=== PATIENT | male | born 1940 | race Caucasian/White ===

== ENCOUNTER → 2017-12-14 | Outpatient (CLI) | payer BC ==
[2017-12-14 17:24] LABS: Blood Urea Nitrogen 13 mg/dL (9-20)
--- NOTE | 2017-12-15 08:13 | CT ---
EXAMINATION TYPE: CT abdomen pelvis w con DATE OF EXAM: 12/14/2017 COMPARISON: CT abdomen pelvis April 30, 2010. HISTORY: Diarrhea and irregular bowel movements for 3 days per patient. Abdominal pain not further sp ecified per order CT DLP: 1536 mGycm, Automated Exposure Control for Dose Reduction was Utilized. CONTRAST: CT scan of the abdomen and pelvis is performed with oral and with IV Contrast, patient injected with 100 mL of Isovue 300. FINDINGS: LUNG BASES: No significant abnormality is appreciated. LIVER/GB: Liver is diffusely low dense consistent with fatty infiltration. PANCREAS: No significant abnormality is seen. SPLEEN: No significant abnormality is seen. ADRENALS: No significant abnormality is seen. KIDNEYS: No significant abnormality is seen. BOWEL: The oral contrast reaches level of the hepatic flexure. There is no suspicious small or large bowel dilatation seen. Appendix is within normal limits extending medially from cecum. No suspicious wall thickening is identified in bowel. PROSTATE/SEMINAL VESICLES: Prostate gland is heterogeneous in appearance and slightly enlarged in siz e bulging on bladder base, some central zone calcifications are present. Underlying BPH is suspected, correlate clinically. LYMPH NODES: No greater than 1cm abdominal or pelvic lymph nodes are appreciated. OSSEOUS STRUCTURES: There are some prominent lateral spurring in the visualized thoracic and upper haven mbar spine. There is facet arthropathy lower lumbar levels. There is moderate joint space loss and mi ld to moderate spurring in both hips. OTHER: There is moderate mixed plaque in the aorta extending into pelvic branch vessels. IMPRESSION: No bowel obstruction. No obvious colitis. No significant new or acute finding is seen to account for patient's clinical symptoms. Diffuse fatty infiltration of liver redemonstrated.
== END | disposition home or self-care (01) ==
LOC: RADCTMAIN 16:34
PROVIDERS: ATTEND Family Medicine
DX: K76.0 Fatty (change of) liver, not elsewhere classified (principal); Z88.8 Allergy status to other drugs, medicaments and biological substances
CPT/HCPCS: 82565; 84520; 74177; 36415; Q9967

== ENCOUNTER → 2021-10-25 | Outpatient (CLI) | payer BC ==
--- NOTE | 2021-10-25 12:22 | US ---
EXAMINATION TYPE: US abdomen complete DATE OF EXAM: 10/25/2021 COMPARISON: CT 12/14/2017 CLINICAL HISTORY: 81-year-old male R74.8 ABN SERUM ENZYME LEVELS. Abdominal pain, and diarrhea noted intermittently by patient; smoker TECHNIQUE: Multiple sonographic images of the abdomen are obtained. FINDINGS: EXAM MEASUREMENTS: Liver Length: 16.1 cm Gallbladder Wall: 0.2 cm CBD: 0.6 cm Spleen: 10.4 cm Right Kidney: 11.9 x 5.7 x 4.9 cm Left Kidney: 11.7 x 4.4 x 6.4 cm Pancreas: Suboptimal visualization the pancreatic tail due to shadowing from bowel gas. Visualized p ortions show no gross abnormality. Liver: no masses seen. Overall homogeneous appearance. Gallbladder: mobile shadowing stone is seen = 2.8 x 1.9 x 1.4cm, mobile sludge also seen; areas of c omet tail artifact along the anterior wall suggests benign adenomyomatosis. No abnormal distention o r surrounding fluid. Evidence for sonographic Fitzpatrick's sign: no CBD: Borderline dilated but acceptable given the patient's age. Spleen: wnl Right Kidney: No hydronephrosis or evident masses seen Left Kidney: No hydronephrosis or evident masses seen Upper IVC: wnl Abd Aorta: prominent size measuring 2.6cm A/P longitudinal and 2.5cm A/P transverse. Irregular intima l wall changes are noted distally with ectatic appearance here for a span of 4.6 cm. IMPRESSION: 1. Cholelithiasis with a stone measuring up to 2.8 cm. No axillary findings of acute cholecystitis. 2. Borderline dilated bile duct at 6 mm. However, this is acceptable given patient's age. Clinically correlate. 3. Prominent atherosclerotic changes along the distal abdominal aorta with plaque and calcification a nd mild ectasia up to 2.6 cm.
== END | disposition home or self-care (01) ==
LOC: RADUSWWP 09:30
PROVIDERS: ATTEND Family Medicine
DX: K80.20 Calculus of gallbladder without cholecystitis without obstruction (principal); K83.8 Other specified diseases of biliary tract; I70.0 Atherosclerosis of aorta; I77.811 Abdominal aortic ectasia
CPT/HCPCS: 76700

== ENCOUNTER 2021-11-08 10:22 | Observation (INO) | payer BC, MEDICARE ==
--- NOTE | 2021-11-08 12:42 | ED ---
General Adult HPI - General Chief complaint: Abdominal Pain Stated complaint: Gall Bladder pain Time Seen by Provider: 11/08/21 12:30 Source: patient, family, RN notes reviewed, old records reviewed Mode of arrival: ambulatory Limitations: no limitations - History of Present Illness Initial comments: 81-year-old male presents to emergency room with daughter complaining of abdominal pain worse after eating peanut better last night. Patient was diagnos ed with gallstones on October 25 and referred to gastroenterology. He was given an appointment scheduled first week of November with gastroenterology. Patient states that the pain continues and is burning in nature. Family at bedside is concerned for common bile duct blockage and states was sent by Dr. Tripathi for reevaluation. Patient denies any vomiting, no fevers, did have some diarrhea. -: week(s) (2) Location: abdomen Severity scale (1-10): 2 Quality: burning Consistency: constant Improves with: none Associated Symptoms: loss of appetite, other (diarrhea) Treatments Prior to Arrival: other (immodiium) - Related Data Home Medications Medication Instructions Recorded Confirmed SILVER sulfADIAZINE Cream 1.5 mm TOPICAL BID 11/08/21 11/08/21 [Silvadene 1% Cream] Allergies Allergy/AdvReac Type Severity Reaction Status Date / Time No Known Allergies Allergy Verified 11/08/21 14:35 Review of Systems ROS Statement: Those systems with pertinent positive or pertinent negative responses have been documented in the HPI. ROS Other: All systems not noted in ROS Statement are negative. Past Medical History Past Medical History: Diabetes Mellitus History of Any Multi-Drug Resistant Organisms: None Reported Past Surgical History: No Surgical Hx Reported Past Psychological History: No Psychological Hx Reported Smoking Status: Current every day smoker Past Alcohol Use History: Occasional Past Drug Use History: None Reported General Exam Limitations: no limitations General appearance: alert, in no apparent distress Head exam: Present: atraumatic, normocephalic, normal inspection Eye exam: Present: normal appearance ENT exam: Present: normal exam, normal oropharynx, mucous membranes dry Neck exam: Present: normal inspection, full ROM. Absent: tenderness, meningismus, lymphadenopathy, thyromegaly Respiratory exam: Present: normal lung sounds bilaterally. Absent: respiratory distress, wheezes, rales, rhonchi, stridor, chest wall tenderness, accessory muscle use, decreased breath sounds Cardiovascular Exam: Present: regular rate, normal rhythm GI/Abdominal exam: Present: soft, tenderness (diffuse generalized). Absent: distended, guarding, rebound Neurological exam: Present: alert, oriented X3 ([place]) Psychiatric exam: Present: normal affect, normal mood Skin exam: Present: warm, dry, normal color. Absent: cyanosis, diaphoretic Course Vital Signs 11/08/21 11/08/21 10:40 17:00 Temperature 98.5 F Pulse Rate 73 57 L Respiratory 20 18 Rate Blood Pressure 110/67 124/65 O2 Sat by Pulse 99 97 Oximetry Medical Decision Making - Medical Decision Making 81-year-old male presents complaining of abdominal pain worse after eating peanut better last night. He was diagnosed with gallstones on October 25 and continues to have worsening abdominal pain. Patient's white blood cell count is elevated from 7.0 on 10/20/21 to 12.0 today. Ultrasound of gallbladder shows cholelithiasis with some thickening of the ga llbladder wall. There is some pericholecystic fluid present consistent for acute cholecystitis Ultrasound on October 25 shows stone measuring 2.8 x 1.9 x 1.4 cm. Patient states he is having continued pain worse with eating. Patient was given Rocephin 1 g and Flagyl IV. Morphine for pain. He will be admitted for cholecystitis with consult to GI. Case discussed with Dr. Young. - Lab Data Result diagrams: 11/08/21 13:11 11/08/21 13:11 Lab Results 11/08/21 11/08/21 11/08/21 Range/Units 13:11 13:11 13:11 WBC 12.0 H (3.8-10.6) k/uL RBC 4.51 (4.30-5.90) m/uL Hgb 14.9 (13.0-17.5) gm/dL Hct 44.2 (39.0-53.0) % MCV 98.0 (80.0-100.0) fL MCH 33.0 (25.0-35.0) pg MCHC 33.7 (31.0-37.0) g/dL RDW 12.2 (11.5-15.5) % Plt Count 209 (150-450) k/uL MPV 7.2 Neutrophils % 51 % Lymphocytes % 39 % Monocytes % 5 % Eosinophils % 2 % Basophils % 1 % Neutrophils # 6.2 (1.3-7.7) k/uL Lymphocytes # 4.7 (1.0-4.8) k/uL Monocytes # 0.6 (0-1.0) k/uL Eosinophils # 0.2 (0-0.7) k/uL Basophils # 0.1 (0-0.2) k/uL PT 10.5 (9.0-12.0) sec INR 1.0 (<1.2) APTT 26.6 (22.0-30.0) sec Sodium (137-145) mmol/L Potassium (3.5-5.1) mmol/L Chloride (98-107) mmol/L Carbon Dioxide (22-30) mmol/L Anion Gap mmol/L BUN (9-20) mg/dL Creatinine (0.66-1.25) mg/dL Est GFR (CKD-EPI)AfAm (>60 ml/min/1.73 sqM) Est GFR (CKD-EPI)NonAf (>60 ml/min/1.73 sqM) Glucose (74-99) mg/dL Plasma Lactic Acid Hector (0.7-2.0) mmol/L Calcium (8.4-10.2) mg/dL Total Bilirubin (0.2-1.3) mg/dL AST (17-59) U/L ALT (4-49) U/L Alkaline Phosphatase (38-126) U/L Total Protein (6.3-8.2) g/dL Albumin (3.5-5.0) g/dL Amylase (30-110) U/L Lipase (23-300) U/L Urine Color Light Yellow Urine Appearance Clear (Clear) Urine pH 6.0 (5.0-8.0) Ur Specific [place] 1.004 (1.001-1.035) Urine Protein Negative (Negative) Urine Glucose (UA) Negative (Negative) Urine Ketones Negative (Negative) Urine Blood Negative (Negative) Urine Nitrite Negative (Negative) Urine Bilirubin Negative (Negative) Urine Urobilinogen <2.0 (<2.0) mg/dL Ur Leukocyte Esterase Negative (Negative) Coronavirus (PCR) (Not Detectd) 11/08/21 11/08/21 11/08/21 Range/Units 13:11 13:11 14:13 WBC (3.8-10.6) k/uL RBC (4.30-5.90) m/uL Hgb (13.0-17.5) gm/dL Hct (39.0-53.0) % MCV (80.0-100.0) fL MCH (25.0-35.0) pg MCHC (31.0-37.0) g/dL RDW (11.5-15.5) % Plt Count (150-450) k/uL MPV Neutrophils % % Lymphocytes % % Monocytes % % Eosinophils % % Basophils % % Neutrophils # (1.3-7.7) k/uL Lymphocytes # (1.0-4.8) k/uL Monocytes # (0-1.0) k/uL Eosinophils # (0-0.7) k/uL Basophils # (0-0.2) k/uL PT (9.0-12.0) sec INR (<1.2) APTT (22.0-30.0) sec Sodium 138 (137-145) mmol/L Potassium 4.4 (3.5-5.1) mmol/L Chloride 107 (98-107) mmol/L Carbon Dioxide 25 (22-30) mmol/L Anion Gap 6 mmol/L BUN 8 L (9-20) mg/dL Creatinine 0.88 (0.66-1.25) mg/dL Est GFR (CKD-EPI)AfAm >90 (>60 ml/min/1.73 sqM) Est GFR (CKD-EPI)NonAf 82 (>60 ml/min/1.73 sqM) Glucose 92 (74-99) mg/dL Plasma Lactic Acid Hector 1.2 (0.7-2.0) mmol/L Calcium 9.4 (8.4-10.2) mg/dL Total Bilirubin 0.7 (0.2-1.3) mg/dL AST 20 (17-59) U/L ALT 12 (4-49) U/L Alkaline Phosphatase 65 (38-126) U/L Total Protein 7.0 (6.3-8.2) g/dL Albumin 4.2 (3.5-5.0) g/dL Amylase 225 H (30-110) U/L Lipase 112 (23-300) U/L Urine Color Urine Appearance (Clear) Urine pH (5.0-8.0) Ur Specific [place] (1.001-1.035) Urine Protein (Negative) Urine Glucose (UA) (Negative) Urine Ketones (Negative) Urine Blood (Negative) Urine Nitrite (Negative) Urine Bilirubin (Negative) Urine Urobilinogen (<2.0) mg/dL Ur Leukocyte Esterase (Negative) Coronavirus (PCR) Not Detected (Not Detectd) Disposition Clinical Impression: Cholelithiasis Disposition: ADMITTED IP TO THIS [facility] Decision Date: 11/08/21 Decision Time: 14:24
[2021-11-08 13:34] LABS: Basophils # (A) 0.1 k/uL (0-0.2); Basophils % (A) 1 %; Eosinophils # (A) 0.2 k/uL (0-0.7); Eosinophils % (A) 2 %; HCT 44.2 % (39.0-53.0); HGB 14.9 gm/dL (13.0-17.5); Lymphocytes # (A) 4.7 k/uL (1.0-4.8); Lymphocytes % (A) 39 %; MCHC 33.7 g/dL (31.0-37.0); Mean Platelet Volume 7.2; Monocytes # (A) 0.6 k/uL (0-1.0); Monocytes % (A) 5 %; Neutrophils # (A) 6.2 k/uL (1.3-7.7); Neutrophils % (A) 51 %; Platelet Count 209 k/uL (150-450); RBC 4.51 m/uL (4.30-5.90); RDW 12.2 % (11.5-15.5)
[2021-11-08 13:38] LABS: Appearance,Urine Clear (Clear); Bilirubin,Urine Negative (Negative); Blood,Urine Negative (Negative); Color,Urine Light Yellow; Glucose,Urine (UA) Negative (Negative); Ketones,Urine Negative (Negative); Leukocyte Esterase,Urine Negative (Negative); Nitrite,Urine Negative (Negative); Protein,Urine Negative (Negative); Specific Gravity,Urine 1.004 (1.001-1.035); Urobilinogen,Urine <2.0 mg/dL (<2.0)
[2021-11-08 13:44] LABS: ALT 12 U/L (4-49); AST 20 U/L (17-59); African American GFR (CKD) >90 (>60 ml/min/1.73 sqM); Albumin 4.2 g/dL (3.5-5.0); Alkaline Phosphatase 65 U/L (38-126); Amylase 225 U/L (30-110); Anion Gap 6 mmol/L; Blood Urea Nitrogen 8 mg/dL (9-20); Calcium 9.4 mg/dL (8.4-10.2); Carbon Dioxide 25 mmol/L (22-30); Chloride 107 mmol/L (98-107); Glucose 92 mg/dL (74-99); Lipase 112 U/L (23-300); Non-African American GFR(CKD) 82 (>60 ml/min/1.73 sqM); Potassium 4.4 mmol/L (3.5-5.1); Sodium 138 mmol/L (137-145); Total Bilirubin 0.7 mg/dL (0.2-1.3)
[2021-11-08 13:49] LABS: Partial Thromboplastin Time 26.6 sec (22.0-30.0); Prothrombin Time 10.5 sec (9.0-12.0)
--- NOTE | 2021-11-08 13:57 | US ---
EXAMINATION TYPE: US gallbladder DATE OF EXAM: 11/08/2021 COMPARISON: NONE CLINICAL HISTORY: cholecystitis. EXAM MEASUREMENTS: Liver Length: 13.2 cm Gallbladder Wall: 0.5 cm CBD: 0.7 cm Right Kidney: 11.5 x 4.8 x 4.7 cm Pancreas: Obscured by bowel gas Liver: wnl Gallbladder: thickened wall, there appears to be pericholecystic fluid, stones, comet tail artifact in the wall Evidence for sonographic Fitzpatrick's sign: yes CBD: dilated Right Kidney: wnl IMPRESSION: 1. Cholelithiasis with some thickening of the gallbladder wall. Some pericholecystic fluid may be pre sent. Correlate for acute cholecystitis.
[2021-11-08] MEDS ORDERED: cefTRIAXone IN SWFI 1,000 MG/10 ML SYRINGE IVP STA (14:00)
[2021-11-08] MEDS ORDERED: MORPHINE SULFATE 2 MG/ML SYRINGE IVP ONE (14:05)
[2021-11-08] MEDS ORDERED: HYDROmorphone 1 MG/ML 1 ML SYRINGE IVP PRN (14:24)
[2021-11-08] MEDS ORDERED: ACETAMINOPHEN TAB 325 MG TAB PO PRN (14:24)
[2021-11-08] MEDS ORDERED: NALOXONE 0.4 MG/ML 1 ML VIAL IV PRN (14:24)
[2021-11-08] MEDS ORDERED: IBUPROFEN 400 MG TAB PO PRN (14:24)
[2021-11-08] MEDS ORDERED: metroNIDAZOLE-NS PMX 500 MG in SALINE 1 100ML.BAG IVPB STA (14:24)
[2021-11-08] MEDS: SODIUM CHLORIDE 0.9% 1,000 ML IV SCH ×2 (17:24→23:53)
[2021-11-08 17:29] LABS: Glucose,Whole Blood 87 mg/dL (75-99)
[2021-11-08] MEDS: DEXTROSE 5%-0.9% NACL 1,000 ML IV SCH (17:58)
--- NOTE | 2021-11-08 19:01 | HP ---
HISTORY AND PHYSICAL DATE OF SERVICE: 11/08/2021 CHIEF COMPLAINT: Abdominal pain. HISTORY OF PRESENT ILLNESS: This 81-year-old gentleman with a past medical history of multiple medical problems, including diabetes mellitus, was admitted with abdominal pain. The patient was diagnosed with gallstones on October 25 and was referred to Gastroenterology. Currently the patient is having severe pain. Patient had a gallbladder ultrasound showing possible cholelithiasis and cholecystitis. Patient was admitted for further evaluation and treatment. There is no history of any fever, rigor or chills at this time. PAST MEDICAL HISTORY: History of diabetes mellitus, type 2. HOME MEDICATIONS: Silver sulfadiazine cream. ALLERGIES: NONE. FAMILY HISTORY: No history of heart disease or strokes in the family. SOCIAL HISTORY: Current smoker. REVIEW OF SYSTEMS: Fourteen-point review of systems negative except as mentioned earlier. PHYSICAL EXAMINATION: Pulse is 62, blood pressure 120/60, respiration 18. HEENT: Conjunctivae normal. NECK: No jugular venous distention. CARDIOVASCULAR: S1, S2 muffled. RESPIRATION: Breath sounds diminished at the bases. No rhonchi. No crackles. ABDOMEN: Soft. Mild diffuse tenderness in the right upper quadrant. No ascites. LEGS: No edema. No swelling. NERVOUS SYSTEM: No focal deficit. LABS: WBC 12, hemoglobin is 14.9. BUN is 8. Amylase is , lipase 112. ASSESSMENT: 1. Acute abdominal pain with acute cholecystitis and cholelithiasis. 2. Increased white count. 3. Diabetes mellitus, type 2. RECOMMENDATIONS AND DISCUSSION: In this 81-year-old gentleman who presented with multiple medical issues, we will monitor the patient closely. Empiric antibiotics. Otherwise I would also recommend surgical gastroenterology consultations. Probably cholecystectomy. IV fluids. Repeat labs. Dr. Tripathi will follow tomorrow. MMODL / IJN: [id number] / [facility]
[2021-11-08 21:23] LABS: Glucose,Whole Blood 117 mg/dL (75-99)
[2021-11-08] MEDS: INSULIN ASPART (NovoLOG) 100 UNIT/ML VIAL SQ SCH (21:33)
[2021-11-08] MEDS: HEPARIN SODIUM,PORCINE/PF 5,000 UNIT/0.5 ML SYRINGE SQ SCH (21:46)
[2021-11-09] MEDS: DEXTROSE 5%-0.9% NACL 1,000 ML IV SCH ×3 (05:53→21:46)
[2021-11-09 07:28] LABS: Glucose,Whole Blood 94 mg/dL (75-99)
[2021-11-09] MEDS: SODIUM CHLORIDE 0.9% 1,000 ML IV SCH (07:30)
[2021-11-09] MEDS: INSULIN ASPART (NovoLOG) 100 UNIT/ML VIAL SQ SCH ×4 (08:05→21:46)
[2021-11-09 08:42] LABS: Basophils # (A) 0.1 k/uL (0-0.2); Basophils % (A) 1 %; Eosinophils # (A) 0.2 k/uL (0-0.7); Eosinophils % (A) 2 %; HCT 44.1 % (39.0-53.0); HGB 14.9 gm/dL (13.0-17.5); Lymphocytes # (A) 4.3 k/uL (1.0-4.8); Lymphocytes % (A) 51 %; MCH 33.4 pg (25.0-35.0); MCHC 33.8 g/dL (31.0-37.0); MCV 98.8 fL (80.0-100.0); Mean Platelet Volume 7.2; Monocytes # (A) 0.4 k/uL (0-1.0); Monocytes % (A) 5 %; Neutrophils # (A) 3.3 k/uL (1.3-7.7); Neutrophils % (A) 39 %; Platelet Count 202 k/uL (150-450); RBC 4.47 m/uL (4.30-5.90); RDW 12.9 % (11.5-15.5); WBC 8.4 k/uL (3.8-10.6)
[2021-11-09] MEDS: HEPARIN SODIUM,PORCINE/PF 5,000 UNIT/0.5 ML SYRINGE SQ SCH ×2 (08:58→21:46)
[2021-11-09] MEDS ORDERED: cefTRIAXone 1,000 MG VIAL (IM USE) IM SCH (09:00)
[2021-11-09 10:17] LABS: ALT 11 U/L (4-49); AST 19 U/L (17-59); African American GFR (CKD) 88 (>60 ml/min/1.73 sqM); Albumin/Globulin Ratio 1.4; Alkaline Phosphatase 62 U/L (38-126); Anion Gap 5 mmol/L; Blood Urea Nitrogen 11 mg/dL (9-20); Carbon Dioxide 27 mmol/L (22-30); Chloride 107 mmol/L (98-107); Globulin 2.8 g/dL; Glucose 98 mg/dL (74-99); Non-African American GFR(CKD) 76 (>60 ml/min/1.73 sqM); Potassium 4.4 mmol/L (3.5-5.1); Sodium 139 mmol/L (137-145); Total Bilirubin 0.8 mg/dL (0.2-1.3); Total Protein 6.8 g/dL (6.3-8.2)
--- NOTE | 2021-11-09 10:58 | P.GSCN ---
History of Present Illness Consult date: 11/09/21 History of present illness: CHIEF COMPLAINT: Abdominal pain HISTORY OF PRESENT ILLNESS: This is a 81-year-old male who complains of right upper quadrant abdominal pain that radiates to the back that started yesterday night. He the abdominal pain was worse after eating peanut butter and jelly. He was recently diagnosed with gallstones on October 25 of this year and was referred to gastroenterology. There were concerns that he may have had a stone in the common bile duct. However patient's pain became more severe and he presented to the ER. Patient denies any nausea or vomiting. Denies any fever chills or sweats. He had an ultrasound completed the did show thickening of the gallbladder wall and pericholecystic fluid with concerns of acute cholecystitis. LFTs are normal. Mild elevation in amylase. Patient scheduled for laparoscopic cholecystectomy today. Patient seen and examined with Dr. womack PAST MEDICAL HISTORY: Diabetes mellitus PAST SURGICAL HISTORY: No prior abdominal surgery history MEDICATIONS: See list. ALLERGIES: See list. SOCIAL HISTORY: No illicit drug use. REVIEW OF SYSTEMS: CONSTITUTIONAL: Denies fever or chills. HEENT: Denies blurred vision, vision changes, or eye pain. Denies hemoptysis CARDIOVASCULAR: Denies chest pain or pressure. RESPIRATORY: No shortness of breath. GASTROINTESTINAL: See HPI for pertinent findings HEMATOLOGIC: Denies bleeding disorders. GENITOURINARY: Denies any blood in urine or increased urinary frequency. SKIN: Denies pruitis. Denies rash. PHYSICAL EXAM: VITAL SIGNS: Reviewed GENERAL: Well-developed in no acute distress. HEENT: No sclera icterus. Extraocular movements grossly intact. Moist buccal mucosa. Head is atraumatic, normocephalic. No nasal drainage. ABDOMEN: Soft. Nondistended. Tenderness with palpation right upper quadrant NEUROLOGIC: Alert and oriented. Cranial nerves II through XII grossly intact. LABORATORY DATA: WBC 12 down to 8.4 hemoglobin 14.9 platelets 202 Sodium 139 potassium 4.4 creatinine 0.95 Amylase 225 Lipase 112 LFTs normal IMAGING: Gallbladder ultrasound shows cholelithiasis with some thickening in the gallbladder wall. Some pericholecystic fluid may be present. Correlate for acute cholecystitis ASSESSMENT: 1. Acute cholecystitis with cholelithiasis 2. Right upper quadrant abdominal pain PLAN: -Patient scheduled for laparoscopic cholecystectomy today with Dr. womack -Keep patient nothing by mouth -Continue antibiotics -Continue IV fluids -Continue pain medication as needed Thank you for this consultation Physician Cotton Tier note has been reviewed by physician. Signing provider agrees with the documented findings, assessment, and plan of care. Past Medical History Past Medical History: Cancer, Diabetes Mellitus Additional Past Medical History / Comment(s): Bladder cancer History of Any Multi-Drug Resistant Organisms: None Reported Past Surgical History: No Surgical Hx Reported Past Anesthesia/Blood Transfusion Reactions: No Reported Reaction Past Psychological History: No Psychological Hx Reported Smoking Status: Current every day smoker Past Alcohol Use History: Occasional Past Drug Use History: None Reported Medications and Allergies Home Medications Medication Instructions Recorded Confirmed Type SILVER sulfADIAZINE Cream 1.5 mm TOPICAL BID 11/08/21 11/08/21 History [Silvadene 1% Cream] Allergies Allergy/AdvReac Type Severity Reaction Status Date / Time No Known Allergies Allergy Verified 11/08/21 14:35 Surgical - Exam Vital Signs Temp Pulse Resp BP Pulse Ox 98.5 F 73 20 110/67 99 11/08/21 10:40 11/08/21 10:40 11/08/21 10:40 11/08/21 10:40 11/08/21 10:40 Results - Labs 11/09/21 08:02 11/09/21 08:02 Abnormal Lab Results - Last 24 Hours (Table) 11/08/21 11/08/21 11/08/21 Range/Units 13:11 13:11 21:22 WBC 12.0 H (3.8-10.6) k/uL BUN 8 L (9-20) mg/dL POC Glucose (mg/dL) 117 H (75-99) mg/dL Amylase 225 H (30-110) U/L Diabetes panel 11/08/21 11/09/21 Range/Units 13:11 08:02 Sodium 138 139 (137-145) mmol/L Potassium 4.4 4.4 (3.5-5.1) mmol/L Chloride 107 107 (98-107) mmol/L Carbon Dioxide 25 27 (22-30) mmol/L BUN 8 L 11 (9-20) mg/dL Creatinine 0.88 0.95 (0.66-1.25) mg/dL Glucose 92 98 (74-99) mg/dL Calcium 9.4 9.0 (8.4-10.2) mg/dL AST 20 19 (17-59) U/L ALT 12 11 (4-49) U/L Alkaline Phosphatase 65 62 (38-126) U/L Total Protein 7.0 6.8 (6.3-8.2) g/dL Albumin 4.2 4.0 (3.5-5.0) g/dL Calcium panel 11/08/21 11/09/21 Range/Units 13:11 08:02 Calcium 9.4 9.0 (8.4-10.2) mg/dL Albumin 4.2 4.0 (3.5-5.0) g/dL Pituitary panel 11/08/21 11/09/21 Range/Units 13:11 08:02 Sodium 138 139 (137-145) mmol/L Potassium 4.4 4.4 (3.5-5.1) mmol/L Chloride 107 107 (98-107) mmol/L Carbon Dioxide 25 27 (22-30) mmol/L BUN 8 L 11 (9-20) mg/dL Creatinine 0.88 0.95 (0.66-1.25) mg/dL Glucose 92 98 (74-99) mg/dL Calcium 9.4 9.0 (8.4-10.2) mg/dL Adrenal panel 11/08/21 11/09/21 Range/Units 13:11 08:02 Sodium 138 139 (137-145) mmol/L Potassium 4.4 4.4 (3.5-5.1) mmol/L Chloride 107 107 (98-107) mmol/L Carbon Dioxide 25 27 (22-30) mmol/L BUN 8 L 11 (9-20) mg/dL Creatinine 0.88 0.95 (0.66-1.25) mg/dL Glucose 92 98 (74-99) mg/dL Calcium 9.4 9.0 (8.4-10.2) mg/dL Total Bilirubin 0.7 0.8 (0.2-1.3) mg/dL AST 20 19 (17-59) U/L ALT 12 11 (4-49) U/L Alkaline Phosphatase 65 62 (38-126) U/L Total Protein 7.0 6.8 (6.3-8.2) g/dL Albumin 4.2 4.0 (3.5-5.0) g/dL
[2021-11-09 11:50] LABS: Glucose,Whole Blood 97 mg/dL (75-99)
--- NOTE | 2021-11-09 14:12 | P.PN ---
<Marek, - Last Filed: 11/09/21 13:55> Subjective Progress Note Date: 11/09/21 Principal diagnosis: Abdominal pain Patient is a pleasant 81-year-old male that presented to the emergency room with abdominal pain. Patient has been seen in the office multiple times for elevated amylase and was diagnosed with gallstones on October 25 and was referred to general surgery. Patient was unable to wait for appointment scheduled for the first week of November due to increasing abdominal pain. Patient has a pertinent medical history of type 2 diabetes, history of bladder cancer, current smoker. Patient was found to have an elevated white count at 12.0 and amylase of 225. Ultrasound of the gallbladder found cholelithiasis with some thickening of the gallbladder wall consistent with acute cholecystitis. Patient was admitted and general surgery was consulted. IV antibiotics were started, and pain medication ordered. Hospitalist coverage 11/08/2021. 11/09/2021 Patient was seen and examined at bedside. Patient was resting comfortably in bed in no acute distress. Reports improvement of abdominal pain since last night, but naphthalene still operator to touch. Patient denies chest pain, shortness of breath, fever, chills. Patient is currently nothing by mouth, awaiting surgery, scheduled for laparoscopic cholecystectomy with Dr. Olivares. Labs were reviewed today, white count returned normal at 8.4. Will await surgical recommendations Objective - Vital Signs Vital signs: Vital Signs Temp 97.6 F 11/09/21 07:58 Pulse 52 L 11/09/21 08:32 Resp 14 11/09/21 08:32 BP 121/56 11/09/21 07:58 Pulse Ox 97 11/09/21 01:45 Intake & Output 11/08/21 11/09/21 11/09/21 18:59 06:59 18:59 Intake Total 0 700 Balance 0 700 Weight 83.915 kg 83.915 kg Intake: Intake, IV Titration 700 Amount Dextrose 5%-0.9% NaCl 1, 600 000 ml @ 75 mls/hr IV . [id number] JOSE Rx#:[id number] cefTRIAXone 1 gm In 100 Sodium Chloride 0.9% 50 ml @ 100 mls/hr IVPB Q24HR JOSE Rx#:[id number] Oral 0 Other: Voiding Method Toilet Toilet # Voids 2 1 - Constitutional General appearance: Present: cooperative, no acute distress - EENT Eyes: Present: EOMI, PERRLA ENT: Present: normal oropharynx Ears: bilateral: normal - Neck Neck: Present: normal ROM Carotids: bilateral: upstroke normal - Respiratory Respiratory: bilateral: CTA - Cardiovascular Heart rate: 50 Rhythm: regular Heart sounds: normal: S1, S2 - Peripheral pulses radial pulse Peripheral Pulses: bilateral: Normal - Gastrointestinal General gastrointestinal: Present: soft, tenderness Localized gastrointestinal: tender: diffuse - Integumentary Integumentary: Present: normal - Neurologic Neurologic: Present: CNII-XII intact - Musculoskeletal Musculoskeletal: Present: gait normal - Psychiatric Psychiatric: Present: A&O x's 3 - Allied health notes Allied health notes reviewed: nursing - Labs CBC & Chem 7: 11/09/21 08:02 11/09/21 08:02 Labs: Abnormal Lab Results - Last 24 Hours (Table) 11/08/21 Range/Units 21:22 POC Glucose (mg/dL) 117 H (75-99) mg/dL - Imaging and Cardiology US - abdomen: report reviewed Assessment and Plan Assessment: Acute abdominal pain Acute cholecystitis and cholelithiasis Type 2 diabetes mellitus Elevated amylase Leukocytosis, resolved Current smoker History of bladder cancer Plan: Patient is scheduled for cholecystectomy today Continue IV fluids and IV antibiotics Continue to control pain with as needed medications as ordered Continue to monitor blood glucose before meals at bedtime, sliding scale ordered Continue to monitor vital signs Repeat blood work in the morning Further recommendations to come based on patient's clinical course Time with Patient: Greater than 30 <Claduio Tripathi - Last Filed: 11/11/21 19:30> Subjective I have personally seen and examined the patient, reviewed the documentation and agree with the assessment and plan as written. Number of minutes spent on the visit: greater than 15. Objective - Vital Signs Vital signs: Vital Signs Temp 98.3 F 11/10/21 07:21 Pulse 48 L 11/10/21 08:00 Resp 18 11/10/21 08:00 BP 134/62 11/10/21 07:21 Pulse Ox 96 11/10/21 07:00 - Labs CBC & Chem 7: 11/10/21 07:18 11/10/21 07:18 Labs: Microbiology - Last 24 Hours (Table) 11/08/21 14:36 Blood Culture - Preliminary Blood No Growth after 72 hours 11/08/21 14:36 Blood Culture - Preliminary Blood No Growth after 72 hours
--- NOTE | 2021-11-09 15:07 | P.CONS ---
History of Present Illness - Reason for Consult Consult date: 11/09/21 acute cholecystitis Requesting physician: Kj Starks - Chief Complaint Abdominal pain - History of Present Illness Assessment a 11-year-old male who presented to the hospital with complaints of abdominal pain. Patient had been having abdominal pain associated with diarrhea for the last 2 weeks duration. He had outpatient workup that showed that he had gallstones and he was scheduled in November to see Dr. Mccabe regarding his gallstones. However pain had aggressively gotten worse and he came to the hospital for further evaluation. Patient had a ultrasound of the gallbladder cholelithiasis with some thickening of the gallbladder wall. Some pericholecystic fluid may be present. Correlate for acute cholecystitis. He denies any nausea or vomiting. States pain is still present in the epic gastric and right upper quadrant region. LFTs were within normal limits. He has been seen and evaluated by general surgery and scheduled for cholecystectomy this afternoon. Review of Systems REVIEW OF SYSTEMS: CARDIOPULMONARY: No chest pain or shortness of breath. Gastrointestinal: Right upper quadrant abdominal pain. No nausea or vomiting. No hematemesis, coffee-ground emesis. No rectal bleeding, or melena. Diarrhea 2 weeks duration. GENITOURINARY: No dysuria or hematuria. MUSCULOSKELETAL: Reports normal range of motion., Joint pain. SKIN: No rashes. No jaundice. ENDOCRINE: No chills, fevers. No excessive weight gain or loss. No polydipsia or polyuria. PSYCHIATRIC: Unremarkable. NEUROLOGY: No change in mental status. Denies dizziness, headache. ENT: Vision unremarkable. CONSTITUTIONAL: No recent weight loss. No fever, chills, night sweats. Past Medical History Past Medical History: Cancer, Diabetes Mellitus Additional Past Medical History / Comment(s): Bladder cancer History of Any Multi-Drug Resistant Organisms: None Reported Past Surgical History: No Surgical Hx Reported Past Anesthesia/Blood Transfusion Reactions: No Reported Reaction Past Psychological History: No Psychological Hx Reported Smoking Status: Current every day smoker Past Alcohol Use History: Occasional Past Drug Use History: None Reported Medications and Allergies Home Medications Medication Instructions Recorded Confirmed Type SILVER sulfADIAZINE Cream 1.5 mm TOPICAL BID 11/08/21 11/09/21 History [Silvadene 1% Cream] Allergies Allergy/AdvReac Type Severity Reaction Status Date / Time No Known Allergies Allergy Verified 11/09/21 14:56 Physical Exam Vitals: Vital Signs Temp Pulse Pulse Resp BP BP BP 11/09/21 08:32 52 L 14 11/09/21 07:58 97.6 F 52 L 14 121/56 11/09/21 07:05 97.6 F 52 L 14 121/56 11/09/21 02:00 52 L 18 11/09/21 01:45 98.0 F 45 L 17 165/64 11/08/21 19:46 18 11/08/21 19:05 98.3 F 53 L 17 109/62 11/08/21 18:05 62 18 122/68 11/08/21 17:00 57 L 18 124/65 11/08/21 10:40 98.5 F 73 20 110/67 Pulse Ox 11/09/21 08:32 11/09/21 07:58 11/09/21 07:05 11/09/21 02:00 11/09/21 01:45 97 11/08/21 19:46 11/08/21 19:05 99 11/08/21 18:05 98 11/08/21 17:00 97 11/08/21 10:40 99 Intake and Output 11/08/21 11/09/21 11/09/21 22:59 06:59 14:59 Intake Total 0 Balance 0 Intake: Oral 0 Other: Voiding Method Toilet Toilet # Voids 2 2 1 Weight 83.915 kg General appearance: The patient is alert, oriented, appears in no acute d istress. HET: Head is normocephalic and atraumatic. Conjunctiva pink. Sclera anicteric. Neck: Supple without lymphadenopathy. Trachea midline. Heart: S1 S2. Regular rate and rhythm. Lungs: Clear to auscultation. Abdomen: Soft, right upper quadrant and epigastric tenderness, nondistended with bowel sounds. No guarding or rigidity. Skin: No rashes. No jaundice. Extremities: Normal skin color and turgor. No pedal edema. Neurological: No focal deficits. Alert and oriented x3. Results CBC & Chem 7: 11/09/21 08:02 11/09/21 08:02 Labs: Abnormal Lab Results - Last 24 Hours (Table) 11/08/21 11/08/21 11/08/21 Range/Units 13:11 13:11 21:22 WBC 12.0 H (3.8-10.6) k/uL BUN 8 L (9-20) mg/dL POC Glucose (mg/dL) 117 H (75-99) mg/dL Amylase 225 H (30-110) U/L US - abdomen: report reviewed (ultrasound of the gallbladder cholelithiasis with some thickening of the gallbladder wall. Some pericholecystic fluid may be present. Correlate for acute cholecystitis) Assessment and Plan (1) RUQ abdominal pain Narrative/Plan: 81-year-old male with complaints of right upper quadrant and epigastric pain who presented to the emergency department yesterday. Patient states he's been having abdominal pain and had an outpatient ultrasound of the abdomen done showing that he had gallstones. He was scheduled to see Dr. Billingsley with general surgery in November however pain had worsened and has been associated with diarrhea for the last 2 weeks duration. Patient presented to the emergency department had an ultrasound of the gallbladder showing cholelithiasis with a possible acute cholecystitis. He is scheduled with general surgery to undergo laparoscopic, cholecystectomy today. He has no evidence of elevated LFTs, no signs of choledochal lithiasis. Current Visit: Yes Status: Acute Code(s): R10.11 - RIGHT UPPER QUADRANT PAIN SNOMED Code(s): 082626487 Plan: 1. Continue symptomatic and supportive care 2. Continue recommendations from general surgery 3. No plans for ERCP as there is no evidence for choledocholithiasis Thank you for this consultation, we will continue to follow. Dr. Raghav [place] I agree with the dictator's note, documented as a scribe by Adele Colón.
[2021-11-09] MEDS ORDERED: LACTATED RINGERS 1,000 ML IV ONE (15:29)
[2021-11-09 15:39] LABS: Glucose,Whole Blood 89 mg/dL (75-99)
[2021-11-09] MEDS ORDERED: BUPIVACAIN-EPI 0.25%-1:200,000 30 ML VIAL SQ ONE ×2 (15:39→16:32)
[2021-11-09] MEDS ORDERED: ONDANSETRON 4 MG/2 ML VIAL ONE (15:40)
[2021-11-09] MEDS ORDERED: DEXAMETHASONE SOD PHOSPHATE 4 MG/ML 1 ML VIAL IVP ONE (15:46)
[2021-11-09] MEDS ORDERED: ONDANSETRON 4 MG/2 ML VIAL IVP ONE (15:46)
[2021-11-09] MEDS ORDERED: PROPOFOL 10 MG/ML 20 ML VIAL IV ONE (16:08)
[2021-11-09] MEDS ORDERED: HEPARIN SODIUM,PORCINE 5,000 UNIT/ML 1 ML VIAL ONE (16:08)
[2021-11-09] MEDS ORDERED: MIDAZOLAM 2 MG/2 ML VIAL ONE (16:08)
[2021-11-09] MEDS ORDERED: LIDOCAINE 1% INJ 10MG/ML (20 ML MDV) ONE (16:08)
[2021-11-09] MEDS ORDERED: NEOSTIGMINE 1 MG/ML 10 ML VIAL ONE (16:08)
[2021-11-09] MEDS ORDERED: SUCCINYLCHOLINE CHLORIDE 100 MG/5 ML SYR IV ONE (16:08)
[2021-11-09] MEDS ORDERED: HYDROmorphone (PF) 1 MG/ML ONE (16:08)
[2021-11-09] MEDS ORDERED: ROCURONIUM 10 MG/ML (5 ML VIAL) IV ONE (16:08)
[2021-11-09] MEDS ORDERED: fentaNYL (PF) 50 MCG/ML 2 ML AMP ONE (16:08)
[2021-11-09] MEDS ORDERED: GLYCOPYRROLATE 0.2 MG/ML 2 ML VIAL ONE (16:08)
[2021-11-09] MEDS ORDERED: SODIUM CHLORIDE 0.9% 100 ML with ceFAZolin 2,000 MG IV ONE ×2 (16:13)
--- NOTE | 2021-11-09 16:53 | P.OP ---
Date of Procedure: 11/09/21 Preoperative Diagnosis: Cholecystitis Postoperative Diagnosis: Cholecystitis Procedure(s) Performed: Laparoscopic cholecystectomy Anesthesia: ADAMARIS Surgeon: Casey Olivares Estimated Blood Loss (ml): 5 Pathology: other (Gallbladder) Condition: stable Disposition: PACU Description of Procedure: The patient was placed on the operating table. The patient received a general endotracheal tube anesthesia. The patients abdomen was prepped and draped in the usual sterile fashion. Through an infraumbilical stab incision, the fascia of the anterior abdominal wall was grasped with a pair of Kochers and then the Veress needle was placed in the peritoneal cavity. Position of the Veress needle was confirmed with positive drop test. The abdomen was then insufflated. After adequate insufflation, the 10 mm trocar was placed in the peritoneal cavity. Following this the laparoscope was placed in the peritoneal cavity. The patient was placed in the head-up, right side up position and then a 5 mm trocar was placed in the right lateral and right subcostal position under direct visualization. A 8 mm trocar was placed in the epigastric position. The gallbladder was grasped in the fundus and infundibulum. Traction on the gallbladder was placed in the lateral and the cephalad positions. The triangle of Calot was visualized.. The cystic duct was bluntly dissected until the union of the cystic duct and common bile duct was seen. A critical view of safety was achieved. The cystic duct was then divided and sealed with the Harmonic scissors. A PDS Endoloop was then placed throughout the cystic duct stump. The cystic artery divided and sealed with the Harmonic scissors. The gallbladder was then removed from the liver bed using Harmonic scissors. The gallbladder was then extracted through the epigastric port site. Operative field was checked for any bleeding spots and Harmonic scissors was used to coagulate the liver bed. The abdomen was irrigated. The trocars were removed. The skin was closed using interrupted 3-0 Vicryl suture. Dermabond dressing were applied. The patient tolerated the procedure well.
[2021-11-09 17:34] LABS: Glucose,Whole Blood 108 mg/dL (75-99)
[2021-11-09 21:32] LABS: Glucose,Whole Blood 151 mg/dL (75-99)
[2021-11-09] MEDS: HYDROcodone/APAP 5-325MG 1 EACH TAB PO PRN (21:45)
[2021-11-10] MEDS: HYDROcodone/APAP 5-325MG 1 EACH TAB PO PRN ×2 (05:29→12:00)
[2021-11-10] MEDS: SODIUM CHLORIDE 0.9% 1,000 ML IV SCH (05:54)
[2021-11-10 07:19] LABS: Glucose,Whole Blood 103 mg/dL (75-99)
[2021-11-10 07:23] VITALS: BP 134/62; TEMP 98.3
[2021-11-10] MEDS: HEPARIN SODIUM,PORCINE/PF 5,000 UNIT/0.5 ML SYRINGE SQ SCH (07:47)
[2021-11-10] MEDS: INSULIN ASPART (NovoLOG) 100 UNIT/ML VIAL SQ SCH ×2 (07:47→12:21)
[2021-11-10 08:13] VITALS: PULSE 48; RESP 18
[2021-11-10] MEDS ORDERED: ENOXAPARIN 40 MG/0.4 ML SYRINGE SQ SCH (09:00)
[2021-11-10] MEDS: DEXTROSE 5%-0.9% NACL 1,000 ML IV SCH (09:20)
[2021-11-10 11:04] LABS: HCT 44.4 % (39.6-50.0); HGB 14.6 g/dL (13.0-17.0); MCH 31.9 pg (27.0-32.0); MCHC 32.9 g/dL (32.0-37.0); MCV 97.2 fL (80.0-97.0); Mean Platelet Volume 10.6 fL (9.5-12.2); NRBC Per 100 WBC 0 /100 WBCS (0.0-0.0); Platelet Count 237 X 10*3/uL (140-440); RBC 4.57 X 10*6/uL (4.40-5.60); RDW 12.6 % (11.5-14.5); WBC 13.77 X 10*3/uL (4.50-10.00)
[2021-11-10 11:20] LABS: African American GFR (CKD) 82.6 (60.0-200.0); Albumin 4.6 g/dL (3.8-4.9); Albumin/Globulin Ratio 1.84 (1.60-3.17); Anion Gap 13.5 mmol/L (10.00-18.00); BUN/Creat Ratio 8.5 Ratio (12.00-20.00); Blood Urea Nitrogen 8.5 mg/dL (9.0-27.0); Calcium 9.5 mg/dL (8.7-10.3); Carbon Dioxide 23.5 mmol/L (20.0-27.5); Globulin 2.5 g/dL (1.6-3.3); Non-African American GFR(CKD) 71.3 (60.0-200.0); Potassium 4.5 mmol/L (3.5-5.5); Total Bilirubin 0.6 mg/dL (0.30-1.20); Total Protein 7.1 g/dL (6.2-8.2)
--- NOTE | 2021-11-10 11:43 | P.DS ---
<Marek, - Last Filed: 11/10/21 11:36> Providers Expected date of discharge: 11/10/21 Hospital Course: Patient is a pleasant 81-year-old male that presented to the emergency room with abdominal pain. Patient has been seen in the office multiple times for elevated amylase and was diagnosed with gallstones on October 25 and was referred to general surgery. Patient was unable to wait for appointment scheduled for the first week of November due to increasing abdominal pain. Patient has a pertinent medical history of type 2 diabetes, history of bladder cancer, current smoker. Patient was found to have an elevated white count at 12.0 and amylase of 225. Ultrasound of the gallbladder found cholelithiasis with some thickening of the gallbladder wall consistent with acute cholecystitis. Patient was admitted and general surgery was consulted. IV antibiotics were started, and pain medication ordered. Hospitalist coverage 11/08/2021. 11/09/2021 Patient was seen and examined at bedside. Patient was resting comfortably in bed in no acute distress. Reports improvement of abdominal pain since last night, but still photographer to touch. Patient denies chest pain, shortness of breath, fever, chills. Patient is currently nothing by mouth, awaiting surgery, scheduled for laparoscopic cholecystectomy with Dr. Olivares. Labs were reviewed today, white count returned normal at 8.4. Will await surgical recommendations 11/10/2021 Patient was seen and examined at bedside. Patient was up walking in the halls this morning, no acute distress. Does endorse some abdominal tenderness from surgery. Patient is postop day 1 from cholecystectomy. He denies chest pain, chills, shortness of breath. Labs were reviewed, white count increased to 13.7, amylase increased at 339. Both are probably reactive findings. Patient is stable to discharge home, to follow instructions from surgical recommendations. We will repeat lab work in the office after discharge Assessment: Acute abdominal pain Acute cholecystitis and cholelithiasis Type 2 diabetes mellitus Elevated amylase Leukocytosis Current smoker History of bladder cancer Health Concerns: smoker, type 2 diabetes Pertinent Studies: Abdominal ultrasound found cholelithiasis with some thickening of gallbladder wall, some pericholecytic fluid, correlate for acute cholecystitis Procedures: 11/09/2021 patient underwent laparoscopic cholecystectomy with Dr. Olivares Patient Condition at Discharge: Stable Plan - Discharge Summary New Discharge Prescriptions: New Docusate [Colace] 100 mg PO BID #30 capsule HYDROcodone/APAP 5-325MG [[place] 5-325] 1 tab PO Q6HR PRN 3 Days #12 tab PRN Reason: Pain Levofloxacin [Levaquin] 500 mg PO DAILY 1 Days #7 tab Continue SILVER sulfADIAZINE Cream [Silvadene 1% Cream] 1.5 mm TOPICAL BID Discharge Medication List SILVER sulfADIAZINE Cream [Silvadene 1% Cream] 1.5 mm TOPICAL BID 11/08/21 [History] Docusate [Colace] 100 mg PO BID #30 capsule 11/10/21 [Rx] HYDROcodone/APAP 5-325MG [[place] 5-325] 1 tab PO Q6HR PRN 3 Days #12 tab 11/10/21 [Rx] Levofloxacin [Levaquin] 500 mg PO DAILY 1 Days #7 tab 11/10/21 [Rx] Follow up Appointment(s)/Referral(s): Claudio Tripathi MD [Primary Care Provider] - 1-2 days Casey Olivares MD [STAFF PHYSICIAN] - 11/18/21 3:30 pm Patient Instructions/Handouts: *Surgery [facility] - Laparoscopic Cholecystectomy Discharge Instructions, Laparoscopic Cholecystectomy (DC) Activity/Diet/Wound Care/Special Instructions: No driving while taking [place] No lifting over 10 pounds You may shower. No soaking or tub baths for 2 weeks Very light activity until you are reevaluated at your follow up appointment with your surgeon Discharge Disposition: HOME SELF-CARE <Claudio Tripathi - Last Filed: 11/11/21 19:29> Providers Date of admission: 11/08/21 15:31 Attending physician: Claudio Tripathi Consults: 11/08/21 14:25 Consult Physician Routine Consulting Provider: Adina [place] Consult Reason/Comments: Acute cholecystitis Do you want consulting provider notified?: Yes 11/08/21 15:59 Consult Physician Routine Consulting Provider: Casey Olivares Consult Reason/Comments: cholecystitis Do you want consulting provider notified?: Yes Primary care physician: Claudio Tripathi I have personally seen and examined the patient, reviewed the documentation and agree with the assessment and plan as written. Number of minutes spent on the visit: greater than 15.
--- NOTE | 2021-11-10 11:59 | P.PN ---
Subjective Progress Note Date: 11/10/21 CHIEF COMPLAINT: Cholecystitis HISTORY OF PRESENT ILLNESS: Patient is status post laparoscopic cholecystectomy. Patient tolerated surgery well. His pain is controlled. He has been up and ambulating. He is tolerating diet. Afebrile. WBC is 13.77 hemoglobin 14.6 platelets 237 sodium was 140 potassium 4.5 creatinine 1.0 LFTs normal amylase elevated at 339 and lipase low at 13 Patient seen and examined with Dr. womack PHYSICAL EXAM: VITAL SIGNS: Reviewed. GENERAL: Well-developed in no acute distress. HEENT: No sclera icterus. Extraocular movements grossly intact. Moist buccal mucosa. Head is atraumatic, normocephalic. ABDOMEN: Soft. Nondistended. NEUROLOGIC: Alert and oriented. Cranial nerves II through XII grossly intact. ASSESSMENT: 1. Cholecystitis status post laparoscopic cholecystectomy 2. Elevated amylase 3. Leukocytosis PLAN: -Patient is stable from surgical standpoint for discharge -He'll be discharged home with antibiotics -Recommend repeating amylase level in a few days Physician Human Service Coordinator note has been reviewed by physician. Signing provider agrees with the documented findings, assessment, and plan of care. Objective - Vital Signs Vital signs: Vital Signs Temp 98.3 F 11/10/21 07:21 Pulse 48 L 11/10/21 08:00 Resp 18 11/10/21 08:00 BP 134/62 11/10/21 07:21 Pulse Ox 96 11/10/21 07:00 Intake & Output 11/09/21 11/10/21 11/10/21 18:59 06:59 18:59 Intake Total 1350 240 Output Total 5 Balance 1345 240 Weight 83.915 kg Intake: IV 650 Intake, IV Titration 700 Amount Dextrose 5%-0.9% NaCl 1, 600 000 ml @ 75 mls/hr IV . [id number] [facility] Rx#:[id number] cefTRIAXone 1 gm In 100 Sodium Chloride 0.9% 50 ml @ 100 mls/hr IVPB Q24HR [facility] Rx#:[id number] Oral 240 Output: Estimated Blood Loss 5 Other: Voiding Method Toilet Toilet Toilet # Voids 1 3 - Labs CBC & Chem 7: 11/10/21 07:18 11/10/21 07:18 Labs: Abnormal Lab Results - Last 24 Hours (Table) 11/09/21 11/09/21 11/10/21 Range/Units 17:27 21:30 07:17 WBC (4.50-10.00) X 10*3/uL MCV (80.0-97.0) fL BUN (9.0-27.0) mg/dL BUN/Creatinine Ratio (12.00-20.00) Ratio POC Glucose (mg/dL) 108 H 151 H 103 H (75-99) mg/dL Amylase (23-121) U/L Lipase (14-60) U/L 11/10/21 11/10/21 Range/Units 07:18 07:18 WBC 13.77 H (4.50-10.00) X 10*3/uL MCV 97.2 H (80.0-97.0) fL BUN 8.5 L (9.0-27.0) mg/dL BUN/Creatinine Ratio 8.50 L (12.00-20.00) Ratio POC Glucose (mg/dL) (75-99) mg/dL Amylase 339 H* (23-121) U/L Lipase 13 L (14-60) U/L Microbiology - Last 24 Hours (Table) 11/08/21 14:36 Blood Culture - Preliminary Blood No Growth after 24 hours 11/08/21 14:36 Blood Culture - Preliminary Blood No Growth after 24 hours
[2021-11-10 12:00] LABS: Glucose,Whole Blood 129 mg/dL (75-99)
[2021-11-10] MEDS ORDERED: CALCIUM CARBONATE 500 MG CHEWABLE PO PRN (12:03)
[2021-11-10] MEDS ORDERED: PANTOPRAZOLE 40 MG TABLET PO SCH (12:15)
[2021-11-10 13:26] LABS: Basophils # (A) 0.04 X 10*3/uL (0.00-0.10); Basophils % (A) 0.3 %; Eosinophils # (A) 0.01 X 10*3/uL (0.04-0.35); Eosinophils % (A) 0.1 %; Immature Grans, Automated 0.2 %; Lymphocytes % (A) 38.5 %; Monocytes # (A) 0.75 X 10*3/uL (0.20-1.00); Monocytes % (A) 5.4 %; Neutrophils # (A) 7.64 X 10*3/uL (1.80-7.70); Neutrophils % (A) 55.5 %; RBC Morphology NORMAL
--- NOTE | 2021-11-10 15:46 | P.PN ---
Subjective Progress Note Date: 11/10/21 Principal diagnosis: Abdominal pain, cholecystitis Was seen today as a follow-up for consultation for cholecystitis. He is status post cholecystectomy yesterday with general surgery. Today he states the pain he was having has improved however he does have some surgical pain. He denies passing any flatus or bowel movement. He is tolerating his diet. He's been afebrile. LFTs are normal. Mild elevation of his amylase, lipase is normal. Objective - Vital Signs Vital signs: Vital Signs Temp 98.3 F 11/10/21 07:21 Pulse 48 L 11/10/21 08:00 Resp 18 11/10/21 08:00 BP 134/62 11/10/21 07:21 Pulse Ox 96 11/10/21 07:00 Intake & Output 11/09/21 11/10/21 11/10/21 18:59 06:59 18:59 Intake Total 1350 240 Output Total 5 Balance 1345 240 Weight 83.915 kg Intake: IV 650 Intake, IV Titration 700 Amount Dextrose 5%-0.9% NaCl 1, 600 000 ml @ 75 mls/hr IV . [id number] [facility] Rx#:[id number] cefTRIAXone 1 gm In 100 Sodium Chloride 0.9% 50 ml @ 100 mls/hr IVPB Q24HR [facility] Rx#:[id number] Oral 240 Output: Estimated Blood Loss 5 Other: Voiding Method Toilet Toilet Toilet # Voids 1 3 - Exam General appearance: The patient is alert, oriented, appears in no acute distress. HET: Head is normocephalic and atraumatic. Conjunctiva pink. Sclera anicteric. Neck: Supple without lymphadenopathy. Abdomen: Soft, mild tenderness around surgical sites, surgical sites well approximated, nondistended with bowel hypoactive sounds. No guarding or rigidity. Extremities: Normal skin color and turgor. No pedal edema Skin: No rashes, no jaundice Neurological: No focal deficits. Alert and oriented x 3. - Labs CBC & Chem 7: 11/10/21 07:18 11/10/21 07:18 Labs: Abnormal Lab Results - Last 24 Hours (Table) 11/09/21 11/09/21 11/10/21 Range/Units 17:27 21:30 07:17 POC Glucose (mg/dL) 108 H 151 H 103 H (75-99) mg/dL Microbiology - Last 24 Hours (Table) 11/08/21 14:36 Blood Culture - Preliminary Blood No Growth after 24 hours 11/08/21 14:36 Blood Culture - Preliminary Blood No Growth after 24 hours Assessment and Plan (1) RUQ abdominal pain Narrative/Plan: 81-year-old male with complaints of right upper quadrant and epigastric pain who presented to the emergency department yesterday. Patient states he's been having abdominal pain and had an outpatient ultrasound of the abdomen done showing that he had gallstones. He was scheduled to see Dr. Billingsley with general surgery in November however pain had worsened and has been associated with diarrhea for the last 2 weeks duration. Patient presented to the emergency department had an ultrasound of the gallbladder showing cholelithiasis with a possible acute cholecystitis. He is scheduled with general surgery to undergo laparoscopic, cholecystectomy today. He has no evidence of elevated LFTs, no si gns of choledochal lithiasis. Status post laparoscopic cholecystectomy. Plan is for discharge home today. Status: Acute Code(s): R10.11 - RIGHT UPPER QUADRANT PAIN SNOMED Code(s): 834469593 Plan: 1. Continue symptomatic and supportive care 2. Continue recommendations from general surgery 3. No plans for ERCP as there is no evidence for choledocholithiasis 4. Patient is cleared from gastroenterology for discharge Thank you for this consultation, we will continue to follow. Dr. Raghav [place] I agree with the dictator's note, documented as a scribe by Adele Colón.
== END 2021-11-10 13:46 | disposition home or self-care (01) ==
LOC: EC 10:22 → 6NMEDSUR 15:31
PROVIDERS: ADMIT Family Medicine; ATTEND Family Medicine
DX: K80.12 Calculus of gallbladder with acute and chronic cholecystitis without obstruction (principal); E11.9 Type 2 diabetes mellitus without complications; F17.200 Nicotine dependence, unspecified, uncomplicated; Z20.822 Contact with and (suspected) exposure to COVID-19; Z87.442 Personal history of urinary calculi; Z85.51 Personal history of malignant neoplasm of bladder; Z83.3 Family history of diabetes mellitus
CPT/HCPCS: 47562; 99285; 96366 ×2; 96367 ×2; 96372 ×2; 96376; 96365; 96375; 36415; 88304; 80053 ×3; 82150 ×2; 83605; 83690 ×2; 85025 ×3; 85610; 85730; 81003; 87040; 87635; 76705; G0378 ×3; J2250; J1644 ×4; J1100; J2710; J2405; J0690; J2001; J0696 ×3; J3010; J2270; J1170; J0330; J2704

== ENCOUNTER → 2023-09-01 | Outpatient (CLI) | payer BC ==
--- NOTE | 2023-09-01 12:56 | XR ---
EXAMINATION TYPE: XR abdomen acute w cxr DATE OF EXAM: 09/01/2023 COMPARISON: NONE HISTORY: 83-year-old male R10.9 UNSPECIFIED ABDOMINAL PAIN FINDINGS: Heart normal size. Pulmonary vasculature within normal limits. Mild patchy density at the periphery of the right mid to lower lung. No pleural effusion. No evidence for free intraperitoneal air. No dilated small bowel or air-fluid levels. A vague 5 mm density right paramedian mid abdomen may represent a small renal calculus or vascular ca lcification. No dilated small bowel air-fluid levels. Mild stool burden. Vascular calcifications in the pelvis. Mild degenerative change of the hips. IMPRESSION: 1. Patchy density at the periphery of the right to lower lung. Correlate for developing pneumonia. 2. No evidence for free air or bowel obstruction. Mild stool wording. 3. A 5 mm density right paramedian mid abdomen could represent vascular calcification, external artif act, or a right renal calculus.
== END | disposition home or self-care (01) ==
LOC: RADXRMAIN 12:22
PROVIDERS: ATTEND Family Medicine
DX: J98.4 Other disorders of lung (principal); R10.9 Unspecified abdominal pain
CPT/HCPCS: 74022

== ENCOUNTER 2023-09-24 21:09 | Inpatient (IN) | payer BC, MEDICARE ==
[2023-09-24] MEDS ORDERED: SODIUM CHLORIDE 0.9% 1,000 ML IV STA (21:26)
--- NOTE | 2023-09-24 21:59 | ED ---
Abdominal Pain HPI - General Chief Complaint: Abdominal Pain Stated Complaint: Abdominal Pain Time Seen by Provider: 09/24/23 21:20 Source: patient, RN notes reviewed, old records reviewed Mode of arrival: ambulatory Limitations: no limitations - History of Present Illness Initial Comments: This is a 83-year-old male DF for evaluation severe abdominal pain right upper quadrant abdominal pain right-sided abdominal pain, patient received here for pneumonia with IV antibiotics, pain has persisted. Patient's pain tonight and into today has been the worst pain that he has had. Patient's pain is unbearable at this point. Patient states the pain again is severe without nausea no vomiting. Patient does have history of bladder cancer, no fevers shortness of breath does have cough MD Complaint: abdominal pain -: days(s) Location: diffuse, epigastric Radiation: epigastric Migration to: epigastric, suprapubic Severity: moderate Severity scale (1-10): 6 Quality: stabbing Consistency: intermittent Improves With: nothing Worsens With: nothing Context: sick contacts Associated Symptoms: nausea - Related Data Home Medications Medication Instructions Recorded Confirmed Ibuprofen 800 mg PO TID PRN 09/25/23 09/25/23 Omeprazole [PriLOSEC] 20 mg PO DAILY 09/25/23 09/25/23 diazePAM [Valium] 5 mg PO TID PRN 09/25/23 09/25/23 Previous Rx's Medication Instructions Recorded Amoxic-Pot Clav 500-125 mg 1 tab PO Q12HR 4 Days #8 tab 10/02/23 [Augmentin 500-125 mg] Docusate [Colace] 100 mg PO BID #60 cap 10/02/23 Magnesium Hydroxide [Milk of 2,400 mg PO BID PRN ml 10/02/23 Magnesia] Pantoprazole Sodium [Protonix] 40 mg PO DAILY #30 tab 10/02/23 polyethylene glycoL 3350 [Miralax] 17 gm PO DAILY #527 gm 10/02/23 Allergies Allergy/AdvReac Type Severity Reaction Status Date / Time No Known Allergies Allergy Verified 11/09/21 14:56 Review of Systems ROS Statement: Those systems with pertinent positive or pertinent negative responses have been documented in the HPI. ROS Other: All systems not noted in ROS Statement are negative. Past Medical History Past Medical History: Cancer, Diabetes Mellitus Additional Past Medical History / Comment(s): Bladder cancer History of Any Multi-Drug Resistant Organisms: None Reported Past Surgical History: No Surgical Hx Reported Past Anesthesia/Blood Transfusion Reactions: No Reported Reaction Past Psychological History: No Psychological Hx Reported Smoking Status: Current every day smoker Past Alcohol Use History: Occasional Past Drug Use History: None Reported - Past Family History Father Additional Family Medical History / Comment(s): Colon cancer. General Exam Limitations: no limitations General appearance: alert, in no apparent distress, anxious Head exam: Present: atraumatic, normocephalic, normal inspection Eye exam: Present: normal appearance, PERRL, EOMI. Absent: scleral icterus, conjunctival injection, periorbital swelling ENT exam: Present: normal exam, mucous membranes moist Neck exam: Present: normal inspection. Absent: tenderness, meningismus, lymphadenopathy Respiratory exam: Present: normal lung sounds bilaterally. Absent: respiratory distress, wheezes, rales, rhonchi, stridor Cardiovascular Exam: Present: regular rate, normal rhythm, normal heart sounds. Absent: systolic murmur, diastolic murmur, rubs, gallop, clicks GI/Abdominal exam: Present: soft, normal bowel sounds. Absent: distended, tenderness, guarding, rebound, rigid Extremities exam: Present: normal inspection, full ROM, normal capillary refill. Absent: tenderness, pedal edema, joint swelling, calf tenderness Back exam: Present: normal inspection Neurological exam: Present: alert, oriented X3, CN II-XII intact Psychiatric exam: Present: normal affect, normal mood Skin exam: Present: warm, dry, intact, normal color. Absent: rash Course Vital Signs 09/24/23 09/25/23 21:10 01:07 Temperature 98.5 F 98.6 F Pulse Rate 79 67 Respiratory 20 18 Rate Blood Pressure 160/74 138/71 O2 Sat by Pulse 95 93 L Oximetry - Reevaluation(s) Reevaluation #1: 09/25/23 00:46 Records reviewed Reevaluation #2: 09/25/23 00:46 Patient is difficult to control abdominal pain here in the ER Reevaluation #3: 09/25/23 00:48 Patient informed of results and questions answered Reevaluation #4: 09/24/23 22:25 Was pt. sent in by a medical professional or institution (, PA, GUN NUMBERER, urgent care, hospital, or skilled nursing...) When possible be specific @ -no Did you speak to anyone other than the patient for history (EMS, parent, family, police, friend...)? What history was obtained from this source @ -no Did you review nursing and triage notes (agree or disagree)? Why? @ -agree Are old charts reviewed (outside hosp., previous admission, EMS record, old EKG, old radiological studies, urgent care reports/EKG's, skilled nursing records)? Report findings @ -yes Differential Diagnosis (chest pain, altered mental status, abdominal pain women, abdominal pain men, vaginal bleeding, weakness, fever, dyspnea, syncope, headache, dizziness, GI bleed, back pain, seizure, CVA, palpatations, mental health, musculoskeletal)? @ -prior EKG interpreted by me (3pts min.). @ -yes X-rays interpreted by me (1pt min.). @ -yes positive for pneumonia CT interpreted by me (1pt min.). @ -yes positive for pneumonia U/S interpreted by me (1pt. min.). @ -no What testing was considered but not performed or refused? (CT, X-rays, U/S, labs)? Why? @ -none What meds were considered but not given or refused? Why? @ -none Did you discuss the management of the patient with other professionals (professionals i.e. , PA, GUN NUMBERER, lab, RT, psych nurse, social services coordinator, machinist automotive, teacher, surveillance sensor officer, window caser)? Give summary @ -no Was smoking cessation discussed for >3mins.? @ -no Was critical care preformed (if so, how long)? @ -no Were there social determinants of health that impacted care today? How? (Homelessness, low income, unemployed, alcoholism, drug addiction, transportation, low edu. Level, literacy, decrease access to med. care, group home, rehab)? @ -none Was there de-escalation of care discussed even if they declined (Discuss DNR or withdrawal of care, Hospice)? DNR status @ -no What co-morbidities impacted this encounter? (DM, HTN, Smoking, COPD, CAD, Cancer, CVA, ARF, Chemo, Hep., AIDS, mental health diagnosis, sleep apnea, morbid obesity)? @ -none Was patient admitted / discharged? Hospital course, mention meds given and route, prescriptions, significant lab abnormalities, going to OR and other pertinent info. @ - 83 male to the ER for evaluation patient will be admitted for severe cancer pain, pain control and treatment of pneumonia Admitted Undiagnosed new problem with uncertain prognosis? @ -no Drug Therapy requiring intensive monitoring for toxicity (Heparin, Nitro, Insulin, Cardizem)? @ -no Were any procedures done? @ -no Diagnosis/symptom? @ -Cancer related pain Acute, or Chronic, or Acute on Chronic? @ -Acute Uncomplicated (without systemic symptoms) or Complicated (systemic symptoms)? @ -Complicated Side effects of treatment? @ -no Exacerbation, Progression, or Severe Exacerbation? @ -exacerbation Poses a threat to life or bodily function? How? (Chest pain, [place], [place], pneumonia, PE, COPD, DKA, ARF, appy, cholecystitis, CVA, Diverticulitis, Homicidal, Suicidal, threat to staff... and all critical care pts) @ -yes with extreme of age and underlying comorbidities Reevaluation #5: 09/25/23 00:48 Differential Abdominal Pain men: Appendicitis, Cholecystitis, diverticulosis, ischemic bowel, pancreatitis, hepatitis, UTI, gastroenteritis, AAA, incarcerated hernia, bowel obstruction, constipation, inflammatory bowel, hepatitis, peptic ulcer disease, splenic infarction, perforated viscus, vulvitis, ovarian torsion, PID, kidney stone, placenta abruption, this is not meant to be an all-inclusive list - Consultations Consultation #1: spoke w [facility] were agrees to admit this patient Medical Decision Making - Medical Decision Making 83 male to the ER for evaluation patient will be admitted for severe cancer pain, pain control and treatment of pneumonia - Lab Data Result diagrams: 10/01/23 06:40 10/01/23 06:40 Lab Results 09/24/23 09/24/23 09/24/23 Range/Units 21:44 21:44 21:44 WBC 11.0 H (3.8-10.6) k/uL RBC 4.68 (4.30-5.90) m/uL Hgb 15.5 (13.0-17.5) gm/dL Hct 45.6 (39.0-53.0) % MCV 97.4 (80.0-100.0) fL MCH 33.1 (25.0-35.0) pg MCHC 33.9 (31.0-37.0) g/dL RDW 12.4 (11.5-15.5) % Plt Count 209 (150-450) k/uL MPV 7.5 Neutrophils % 40 % Lymphocytes % 51 % Monocytes % 4 % Eosinophils % 2 % Basophils % 1 % Neutrophils # 4.4 (1.3-7.7) k/uL Lymphocytes # 5.6 H (1.0-4.8) k/uL Monocytes # 0.5 (0-1.0) k/uL Eosinophils # 0.2 (0-0.7) k/uL Basophils # 0.1 (0-0.2) k/uL Sodium 138 (137-145) mmol/L Potassium 4.2 (3.5-5.1) mmol/L Chloride 102 (98-107) mmol/L Carbon Dioxide 27 (22-30) mmol/L Anion Gap 9 mmol/L BUN 17 (9-20) mg/dL Creatinine 0.97 (0.66-1.25) mg/dL Est GFR (CKD-EPI)AfAm 85 (>60 ml/min/1.73 sqM) Est GFR (CKD-EPI)NonAf 74 (>60 ml/min/1.73 sqM) Glucose 152 H (74-99) mg/dL Plasma Lactic Acid Hector (0.7-2.0) mmol/L Calcium 9.5 (8.4-10.2) mg/dL Total Bilirubin 1.1 (0.2-1.3) mg/dL AST 125 H (17-59) U/L ALT 67 H (4-49) U/L Alkaline Phosphatase 208 H (38-126) U/L Total Protein 7.4 (6.3-8.2) g/dL Albumin 4.2 (3.5-5.0) g/dL Amylase 180 H (30-110) U/L Lipase 611 H (23-300) U/L Urine Color Colorless Urine Appearance Clear (Clear) Urine pH 6.5 (5.0-8.0) Ur Specific [place] 1.007 (1.001-1.035) Urine Protein Negative (Negative) Urine Glucose (UA) Negative (Negative) Urine Ketones Negative (Negative) Urine Blood Negative (Negative) Urine Nitrite Negative (Negative) Urine Bilirubin Negative (Negative) Urine Urobilinogen <2.0 (<2.0) mg/dL Ur Leukocyte Esterase Negative (Negative) 09/24/23 Range/Units 23:40 WBC (3.8-10.6) k/uL RBC (4.30-5.90) m/uL Hgb (13.0-17.5) gm/dL Hct (39.0-53.0) % MCV (80.0-100.0) fL MCH (25.0-35.0) pg MCHC (31.0-37.0) g/dL RDW (11.5-15.5) % Plt Count (150-450) k/uL MPV Neutrophils % % Lymphocytes % % Monocytes % % Eosinophils % % Basophils % % Neutrophils # (1.3-7.7) k/uL Lymphocytes # (1.0-4.8) k/uL Monocytes # (0-1.0) k/uL Eosinophils # (0-0.7) k/uL Basophils # (0-0.2) k/uL Sodium (137-145) mmol/L Potassium (3.5-5.1) mmol/L Chloride (98-107) mmol/L Carbon Dioxide (22-30) mmol/L Anion Gap mmol/L BUN (9-20) mg/dL Creatinine (0.66-1.25) mg/dL Est GFR (CKD-EPI)AfAm (>60 ml/min/1.73 sqM) Est GFR (CKD-EPI)NonAf (>60 ml/min/1.73 sqM) Glucose (74-99) mg/dL Plasma Lactic Acid Hector 1.2 (0.7-2.0) mmol/L Calcium (8.4-10.2) mg/dL Total Bilirubin (0.2-1.3) mg/dL AST (17-59) U/L ALT (4-49) U/L Alkaline Phosphatase (38-126) U/L Total Protein (6.3-8.2) g/dL Albumin (3.5-5.0) g/dL Amylase (30-110) U/L Lipase (23-300) U/L Urine Color Urine Appearance (Clear) Urine pH (5.0-8.0) Ur Specific [place] (1.001-1.035) Urine Protein (Negative) Urine Glucose (UA) (Negative) Urine Ketones (Negative) Urine Blood (Negative) Urine Nitrite (Negative) Urine Bilirubin (Negative) Urine Urobilinogen (<2.0) mg/dL Ur Leukocyte Esterase (Negative) - EKG Data -: EKG Interpreted by Me - Radiology Data Radiology results: report reviewed (Have the abdomen and pelvis is positive for pneumonia and what appears to be liver metastasis cancer), image reviewed Disposition Clinical Impression: RUQ abdominal pain, Abdominal pain, Right lower lobe pneumonia, Cancer associated pain Disposition: ADMITTED IP TO THIS [facility] Condition: Serious Is patient prescribed a controlled substance at d/c from ED?: No Time of Disposition: 00:30
[2023-09-24 22:10] LABS: Basophils # (A) 0.1 k/uL (0-0.2); Basophils % (A) 1 %; Eosinophils # (A) 0.2 k/uL (0-0.7); Eosinophils % (A) 2 %; HCT 45.6 % (39.0-53.0); HGB 15.5 gm/dL (13.0-17.5); Lymphocytes # (A) 5.6 k/uL (1.0-4.8); Lymphocytes % (A) 51 %; MCH 33.1 pg (25.0-35.0); MCHC 33.9 g/dL (31.0-37.0); MCV 97.4 fL (80.0-100.0); Mean Platelet Volume 7.5; Monocytes # (A) 0.5 k/uL (0-1.0); Monocytes % (A) 4 %; Neutrophils # (A) 4.4 k/uL (1.3-7.7); Neutrophils % (A) 40 %; Platelet Count 209 k/uL (150-450); RBC 4.68 m/uL (4.30-5.90); RDW 12.4 % (11.5-15.5)
[2023-09-24 22:11] LABS: Appearance,Urine Clear (Clear); Bilirubin,Urine Negative (Negative); Blood,Urine Negative (Negative); Color,Urine Colorless; Glucose,Urine (UA) Negative (Negative); Ketones,Urine Negative (Negative); Leukocyte Esterase,Urine Negative (Negative); Nitrite,Urine Negative (Negative); PH, Urine 6.5 (5.0-8.0); Protein,Urine Negative (Negative); Specific Gravity,Urine 1.007 (1.001-1.035); Urobilinogen,Urine <2.0 mg/dL (<2.0)
[2023-09-24 22:22] LABS: ALT 67 U/L (4-49); AST 125 U/L (17-59); African American GFR (CKD) 85 (>60 ml/min/1.73 sqM); Albumin 4.2 g/dL (3.5-5.0); Alkaline Phosphatase 208 U/L (38-126); Amylase 180 U/L (30-110); Anion Gap 9 mmol/L; Blood Urea Nitrogen 17 mg/dL (9-20); Calcium 9.5 mg/dL (8.4-10.2); Carbon Dioxide 27 mmol/L (22-30); Chloride 102 mmol/L (98-107); Glucose 152 mg/dL (74-99); Lipase 611 U/L (23-300); Non-African American GFR(CKD) 74 (>60 ml/min/1.73 sqM); Potassium 4.2 mmol/L (3.5-5.1); Sodium 138 mmol/L (137-145); Total Bilirubin 1.1 mg/dL (0.2-1.3); Total Protein 7.4 g/dL (6.3-8.2)
--- NOTE | 2023-09-24 23:18 | XR ---
EXAM: XR Chest, 2 Views CLINICAL HISTORY: ITS.REASON XR Reason: HERB TECHNIQUE: Frontal and lateral views of the chest. COMPARISON: No relevant prior studies available. FINDINGS: Lungs: Airspace consolidation in the RIGHT lower lobe, concerning for pneumonia. Follow-up studies are recommended. Pleural space: Unremarkable. No pneumothorax. Heart: Unremarkable. No cardiomegaly. Mediastinum: Unremarkable. Normal mediastinal contour. Bones/joints: Unremarkable. No acute fracture. IMPRESSION: Airspace consolidation in the RIGHT lower lobe, concerning for pneumonia. Follow-up studies are recommended.
[2023-09-24] MEDS ORDERED: MORPHINE SULFATE 4 MG/ML SYRINGE IVP STA (23:20)
[2023-09-24] MEDS ORDERED: ONDANSETRON 4 MG/2 ML VIAL IVP STA (23:20)
--- NOTE | 2023-09-24 23:20 | CT ---
EXAM: CT Abdomen and Pelvis With Intravenous Contrast CLINICAL HISTORY: ITS.REASON CT Reason: abdominal pain TECHNIQUE: Axial computed tomography images of the abdomen and pelvis with intravenous contrast. CTDI is 22 mGy and DLP is 1062.6 mGy-cm. This CT exam was performed using one or more of the following dose reduction techniques: automated exposure control, adjustment of the mA and/or kV according to patient size, and/or use of iterative reconstruction technique. COMPARISON: No relevant prior studies available. FINDINGS: Lung bases: Airspace consolidation in the RIGHT lower lobe, consistent with pneumonia. ABDOMEN: Liver: Diffuse hepatic metastases, correlate for primary malignancy. Gallbladder and bile ducts: Cholecystectomy. No ductal dilation. Pancreas: Unremarkable. No mass. No ductal dilation. Spleen: Unremarkable. No splenomegaly. Adrenals: Unremarkable. No mass. Kidneys and ureters: Unremarkable. No solid mass. No hydronephrosis. Stomach and bowel: Diverticulosis, without acute diverticulitis. No small bowel obstruction. No free intraperitoneal air. PELVIS: Appendix: No findings to suggest acute appendicitis. Bladder: Mild wall thickening of the urinary bladder, if there is concern for UTI, urinalysis recommended. Reproductive: Unremarkable as visualized. ABDOMEN and PELVIS: Intraperitoneal space: Unremarkable. No free air. No significant fluid collection. Bones/joints: Degenerative changes of the spine. No acute fracture. No dislocation. Soft tissues: Unremarkable. Vasculature: Atherosclerotic changes of the aorta. No abdominal aortic aneurysm. Lymph nodes: Unremarkable. No enlarged lymph nodes. IMPRESSION: 1. Airspace consolidation in the RIGHT lower lobe, consistent with pneumonia. 2. Diffuse hepatic metastases, correlate for primary malignancy. 3. Mild wall thickening of the urinary bladder, if there is concern for UTI, urinalysis recommended. 4. Cholecystectomy. 5. Diverticulosis, without acute diverticulitis. No small bowel obstruction. No free intraperitoneal air.
[2023-09-25] MEDS ORDERED: NALOXONE 0.4 MG/ML 1 ML VIAL IV PRN (00:40)
[2023-09-25] MEDS ORDERED: LEVOFLOXACIN 750MG-D5W PMX 750 MG in DEXTROSE/WATER 1 150ML.BAG IVPB STA (00:41)
[2023-09-25] MEDS ORDERED: PNEUMONIA PROTOCOL UTILIZED 1 EACH MISC PO PRN (00:41)
[2023-09-25] MEDS ORDERED: IPRATROPIUM-ALBUTEROL 3 ML NEB INHALATION PRN (00:41)
[2023-09-25] MEDS ORDERED: HYDROmorphone 1 MG/ML 1 ML SYRINGE IVP STA (00:41)
[2023-09-25] MEDS ORDERED: PIPERACILLIN-TAZOBACTAM 3.375 GM in SODIUM CHLORIDE 0.9% 100 ML IVPB STA (00:41)
[2023-09-25] MEDS ORDERED: LEVOFLOXACIN 750MG-D5W PMX 750 MG in DEXTROSE/WATER 1 150ML.BAG IVPB ONE ×2 (00:54→02:30)
[2023-09-25] MEDS ORDERED: FAMOTIDINE 20 MG TAB PO STA (00:57)
[2023-09-25] MEDS: SODIUM CHLORIDE 0.9% 1,000 ML IV SCH ×2 (01:45→12:12)
[2023-09-25 02:29] LABS: Glucose,Whole Blood 125 mg/dL (70-110)
[2023-09-25] MEDS: HYDROmorphone 1 MG/ML 1 ML SYRINGE IVP PRN ×4 (06:17→22:51)
[2023-09-25 07:22] LABS: Glucose,Whole Blood 107 mg/dL (70-110)
[2023-09-25] MEDS: PIPERACILLIN-TAZOBACTAM 3.375 GM in SODIUM CHLORIDE 0.9% 100 ML IVPB SCH ×2 (09:36→17:21)
[2023-09-25] MEDS: ONDANSETRON 4 MG/2 ML VIAL IVP PRN ×2 (09:36→17:59)
[2023-09-25] MEDS ORDERED: KETOROLAC 15 MG/ML 1 ML VIAL IVP PRN (11:27)
[2023-09-25] MEDS: PANTOPRAZOLE 40 MG TABLET PO SCH (12:11)
[2023-09-25 12:42] LABS: Glucose,Whole Blood 112 mg/dL (70-110)
[2023-09-25 12:53] LABS: Prothrombin Time 11.1 sec (10.0-12.5)
--- NOTE | 2023-09-25 15:18 | P.CONS ---
History of Present Illness - Reason for Consult Consult date: 09/25/23 liver mets Requesting physician: Salas Rodriguez - Chief Complaint abdominal pain - History of Present Illness Patient is an 83-year-old male with a significant history of bladder cancer. Patient presented to the emergency room with complaints of abdominal pain. Co nsult was placed for abnormal CT scan revealing hepatic metastases. Patient reports he's been experiencing upper abdominal pain for approx 6 weeks that has worsened over the last 3 weeks with associated nausea. Denies vomiting. Also reporting intermittent constipation and diarrhea over the last 6 months. Reports 10 pound weight loss in the last 3 months. Last colonoscopy was 10 years ago. Patient does have history of bladder cancer and was treated by urology and underwent TURBT twice. Last cystoscopy was approximate 5 years ago. Upon admission CT abdomen and pelvis revealed airspace consolidation in the right lower lobe consistent with pneumonia. Diffuse hepatic metastases. Mild wall thickening of urinary bladder. Cholecystectomy. Diverticulitis without acute diverticulitis. No small bowel obstruction or no free intaperitoneal air. CBC revealed WBC 11.0, hemoglobin 15.5, platelet is 209,000. Bilirubin 1.1 Transaminitis noted. Elevated amylase at 180. Lipase 611. UA not suspicious for UTI. Review of Systems 10 point ROS is negative except as stated in the HPI Past Medical History Past Medical History: Cancer, Diabetes Mellitus, GERD/Reflux Additional Past Medical History / Comment(s): Bladder cancer History of Any Multi-Drug Resistant Organisms: None Reported Past Surgical History: Bladder Surgery, Cholecystectomy Additional Past Surgical History / Comment(s): Patient said he had polyps removed from bladder and a bladder "wash". Past Anesthesia/Blood Transfusion Reactions: No Reported Reaction Past Psychological History: No Psychological Hx Reported Smoking Status: Current every day smoker Past Alcohol Use History: Occasional Past Drug Use History: None Reported Additional Drug Use History / Comment(s): Alphonse smokes approx. 9 cigarettes a day. - Past Family History Father Additional Family Medical History / Comment(s): Colon cancer. Medications and Allergies Home Medications Medication Instructions Recorded Confirmed Type Ibuprofen 800 mg PO TID PRN 09/25/23 09/25/23 History Omeprazole [PriLOSEC] 20 mg PO DAILY 09/25/23 09/25/23 History diazePAM [Valium] 5 mg PO TID PRN 09/25/23 09/25/23 History Allergies Allergy/AdvReac Type Severity Reaction Status Date / Time No Known Allergies Allergy Verified 11/09/21 14:56 Physical Exam Vitals: Vital Signs Temp Pulse Pulse Resp BP BP Pulse Ox 09/25/23 07:20 98.5 F 75 16 123/64 91 L 09/25/23 03:23 98.2 F 72 16 157/65 95 09/25/23 01:07 98.6 F 67 18 138/71 93 L 09/24/23 21:10 98.5 F 79 20 160/74 95 Intake and Output 09/24/23 09/25/23 09/25/23 22:59 06:59 14:59 Intake Total 590 Balance 590 Intake: Oral 590 Other: Voiding Method Toilet Toilet Weight 85.729 kg 85.729 kg - Constitutional General appearance: average body habitus, no acute distress - EENT Eyes: anicteric sclerae, EOMI ENT: hearing grossly normal - Neck Neck: no lymphadenopathy - Respiratory Respiratory: right: diminished, rales, left: CTA - Cardiovascular Rhythm: regular Heart sounds: normal: S1, S2 - Gastrointestinal General gastrointestinal: soft, tenderness Localized gastrointestinal: tender: RUQ - Integumentary Integumentary: no cyanotic, no jaundiced - Neurologic grossly intact - Musculoskeletal Musculoskeletal: strength equal bilaterally - Psychiatric Psychiatric: A&O x's 3 Results CBC & Chem 7: 09/24/23 21:44 09/24/23 21:44 Labs: Abnormal Lab Results - Last 24 Hours (Table) 09/24/23 09/24/23 09/25/23 Range/Units 21:44 21:44 02:21 WBC 11.0 H (3.8-10.6) k/uL Lymphocytes # 5.6 H (1.0-4.8) k/uL Glucose 152 H (74-99) mg/dL POC Glucose (mg/dL) 125 H (70-110) mg/dL AST 125 H (17-59) U/L ALT 67 H (4-49) U/L Alkaline Phosphatase 208 H (38-126) U/L Amylase 180 H (30-110) U/L Lipase 611 H (23-300) U/L 09/25/23 Range/Units 12:41 WBC (3.8-10.6) k/uL Lymphocytes # (1.0-4.8) k/uL Glucose (74-99) mg/dL POC Glucose (mg/dL) 112 H (70-110) mg/dL AST (17-59) U/L ALT (4-49) U/L Alkaline Phosphatase (38-126) U/L Amylase (30-110) U/L Lipase (23-300) U/L Chest x-ray: report reviewed CT scan - abdomen: report reviewed CT scan - pelvis: report reviewed Assessment and Plan (1) RUQ abdominal pain Current Visit: Yes Status: Acute Priority: High Code(s): R10.11 - RIGHT UPPER QUADRANT PAIN SNOMED Code(s): 457792542 (2) Right lower lobe pneumonia Current Visit: Yes Status: Acute Priority: High Code(s): J18.9 - PNEUMONIA, UNSPECIFIED ORGANISM SNOMED Code(s): 300223181 Plan: Abdominal pain: -Presented to the emergency room with complaints of abdominal pain for approx 6 weeks that has worsened over the last 3 weeks with associated nausea. Also reporting intermittent constipation and diarrhea over the last 6 months. Reports 10 pound weight loss in the last 3 months. Last colonoscopy was 10 years ago. Significant history of bladder cancer and was treated by urology and underwent TURBT. Patient did not receive systemic treatment. Last cystoscopy was approx 5 years ago. -Upon admission CT abdomen and pelvis revealed airspace consolidation in the right lower lobe consistent with pneumonia. Diffuse hepatic metastases. Mild wall thickening of urinary bladder. Cholecystectomy. Diverticulitis without acute diverticulitis. No small bowel obstruction or no free intaperitoneal air. Bilirubin 1.1 Transaminitis noted. Elevated amylase at 180 and Lipase 611. -Discussed scan findings and concerns for malignancy with patient and family. They verbalized understanding and were agreeable to proceed with further testing. -IR consult placed for liver biopsy Pneumonia: -Chest x-ray revealed airspace consolidation in the right lower lobe. Patient started on IV antibiotics. -Viral serology negative -ID and pulm following Dr [email or web address]: I have seen and examined pt, performed H&P, developed impression and plan of care. Discussed with dictator. Agree with documentation, dictated as a scribe.
[2023-09-25] MEDS ORDERED: HYDROmorphone 0.5 MG/0.5 ML SYRINGE IVP STA (15:52)
[2023-09-25] MEDS ORDERED: RX INFO: IV CONTRAST WAS GIVEN 1 EACH MISC MISCELLANE PRN (16:25)
[2023-09-25 16:37] LABS: Glucose,Whole Blood 105 mg/dL (70-110)
[2023-09-25 17:10] LABS: ALT 56 U/L (4-49); AST 109 U/L (17-59); African American GFR (CKD) >90 (>60 ml/min/1.73 sqM); Albumin 3.9 g/dL (3.5-5.0); Albumin/Globulin Ratio 1.2; Alkaline Phosphatase 166 U/L (38-126); Anion Gap 9 mmol/L; Blood Urea Nitrogen 13 mg/dL (9-20); Calcium 8.9 mg/dL (8.4-10.2); Carbon Dioxide 25 mmol/L (22-30); Chloride 102 mmol/L (98-107); Globulin 3.2 g/dL; Glucose 105 mg/dL (74-99); Non-African American GFR(CKD) 78 (>60 ml/min/1.73 sqM); Potassium 4.6 mmol/L (3.5-5.1); Sodium 136 mmol/L (137-145); Total Bilirubin 1.1 mg/dL (0.2-1.3); Total Protein 7.1 g/dL (6.3-8.2)
[2023-09-25 20:19] LABS: Glucose,Whole Blood 146 mg/dL (70-110)
[2023-09-25] MEDS: HEPARIN SODIUM,PORCINE 5,000 UNIT/ML 1 ML VIAL SQ SCH (22:50)
--- NOTE | 2023-09-25 23:02 | P.CONS ---
History of Present Illness - Reason for Consult Consult date: 09/25/23 - History of Present Illness Patient is a 83-year-old male with a past medical history significant for bladder cancer history of diabetes mellitus and reflux patient presenting to the hospital last night for evaluation of right upper quadrant abdominal pain, the patient symptom has been going on for few days before presentation to the hospital patient describes the pain to be more of a dull aching to sharp mod erate intensity without any radiation patient did have some nausea but no vomiting and denies having any diarrhea or constipation patient did have occasional cough no sputum production with the symptoms the patient was evaluated on presentation to the hospital patient was afebrile and no fever have been called subsequently patient was not tachycardic hypotensive or hypoxic patient did have a white count of 11,000, creatinine 0.92 liver enzymes are mildly elevated urine has been negative influenza RSV COVID testing was negative patient did have a CT of abdominal pelvis airspace consolidation right lower lobe consistent with pneumonia diffuse hepatic metastasis mild wall thickening of the bladder cholecystectomy diverticulosis but no diverticulitis patient was started on Zosyn concern for pneumonia infectious disease was consulted for further management of antibiotic therapy Past Medical History Past Medical History: Cancer, Diabetes Mellitus, GERD/Reflux Additional Past Medical History / Comment(s): Bladder cancer History of Any Multi-Drug Resistant Organisms: None Reported Past Surgical History: Bladder Surgery, Cholecystectomy Additional Past Surgical History / Comment(s): Patient said he had polyps removed from bladder and a bladder "wash". Past Anesthesia/Blood Transfusion Reactions: No Reported Reaction Past Psychological History: No Psychological Hx Reported Smoking Status: Current every day smoker Past Alcohol Use History: Occasional Past Drug Use History: None Reported Additional Drug Use History / Comment(s): Alphonse smokes approx. 9 cigarettes a day. - Past Family History Father Additional Family Medical History / Comment(s): Colon cancer. Medications and Allergies Home Medications Medication Instructions Recorded Confirmed Type Ibuprofen 800 mg PO TID PRN 09/25/23 09/25/23 History Omeprazole [PriLOSEC] 20 mg PO DAILY 09/25/23 09/25/23 History diazePAM [Valium] 5 mg PO TID PRN 09/25/23 09/25/23 History Allergies Allergy/AdvReac Type Severity Reaction Status Date / Time No Known Allergies Allergy Verified 11/09/21 14:56 Physical Exam Vitals: Vital Signs Temp Pulse Pulse Resp BP BP Pulse Ox 09/25/23 16:10 70 16 193/83 91 L 09/25/23 16:02 74 16 160/72 93 L 09/25/23 15:45 69 18 177/79 93 L 09/25/23 12:43 97.7 F 64 16 151/70 92 L 09/25/23 07:20 98.5 F 75 16 123/64 91 L 09/25/23 03:23 98.2 F 72 16 157/65 95 09/25/23 01:07 98.6 F 67 18 138/71 93 L 09/24/23 21:10 98.5 F 79 20 160/74 95 Intake and Output 09/25/23 09/25/23 09/25/23 06:59 14:59 22:59 Intake Total 590 Balance 590 Intake: Oral 590 Other: Voiding Method Toilet Toilet Weight 85.729 kg Results CBC & Chem 7: 09/26/23 05:41 09/26/23 05:41 Labs: Abnormal Lab Results - Last 24 Hours (Table) 09/24/23 09/24/23 09/25/23 Range/Units 21:44 21:44 02:21 WBC 11.0 H (3.8-10.6) k/uL Lymphocytes # 5.6 H (1.0-4.8) k/uL Sodium (137-145) mmol/L Glucose 152 H (74-99) mg/dL POC Glucose (mg/dL) 125 H (70-110) mg/dL AST 125 H (17-59) U/L ALT 67 H (4-49) U/L Alkaline Phosphatase 208 H (38-126) U/L Amylase 180 H (30-110) U/L Lipase 611 H (23-300) U/L 09/25/23 09/25/23 Range/Units 12:41 15:10 WBC (3.8-10.6) k/uL Lymphocytes # (1.0-4.8) k/uL Sodium 136 L (137-145) mmol/L Glucose 105 H (74-99) mg/dL POC Glucose (mg/dL) 112 H (70-110) mg/dL AST 109 H (17-59) U/L ALT 56 H (4-49) U/L Alkaline Phosphatase 166 H (38-126) U/L Amylase (30-110) U/L Lipase (23-300) U/L Assessment and Plan Plan: 1patient presented to hospital with right upper quadrant abdominal pain in this patient on did have history of bladder cancer and evidence of diffuse hepatic metastasis could be responsible for his symptomatology 2-patient also have evidence of consolidation on the CT with a question of possible atelectasis at the patient clinical not behaving as pneumonia did not have any significant cough or sputum production, did not have any fever or mild elevated white count 3-we will wait for CT of the chest for better definition check a CRP and a procalcitonin 4-continue with empiric Zosyn while waiting for the workup to be completed Multiple family members at the bedside questions were answered We will follow on clinical condition and cultures to further adjust medication if needed Thank you for this consultation we will follow the patient along with you Dictation was produced using [employer]_ dictation software. please excuse any grammatical, word or spelling errors. Time with Patient: Greater than 30
[2023-09-26] MEDS: SODIUM CHLORIDE 0.9% 1,000 ML IV SCH (01:05)
[2023-09-26] MEDS: PIPERACILLIN-TAZOBACTAM 3.375 GM in SODIUM CHLORIDE 0.9% 100 ML IVPB SCH ×3 (02:45→16:58)
[2023-09-26] MEDS: HYDROmorphone 1 MG/ML 1 ML SYRINGE IVP PRN ×4 (06:07→18:52)
[2023-09-26] MEDS ORDERED: HYDROcodone/APAP 5-325MG 1 EACH TAB PO PRN (06:58)
[2023-09-26 07:16] LABS: Glucose,Whole Blood 105 mg/dL (70-110)
[2023-09-26] MEDS: HEPARIN SODIUM,PORCINE 5,000 UNIT/ML 1 ML VIAL SQ SCH ×3 (07:25→18:59)
--- NOTE | 2023-09-26 07:32 | HP ---
HISTORY AND PHYSICAL CHIEF COMPLAINTS: Back pain and abdominal pain. HISTORY OF PRESENT ILLNESS: This is an 83-year-old gentleman with a past medical history of multiple medical problems including liver cancer, followed by Oncology as well as Dr. Tripathi in the outpatient setting, was complaining of pain in the right upper quadrant and felt throughout the upper back. The patient also had a pneumonia, was also receiving antibiotics for the last several weeks. Because of the lack of improvement, the patient came to [facility] and admitted for further evaluation and treatment. The patient has also history of bladder cancer as well. Chest x-ray, CT scan of abdomen and pelvis were reviewed. Chest x-ray showed evidence of right lower lobe pneumonia. The liver showed multiple METS. Adenopathy in the abdominal CT scan also has been noted. There is no history of any fever, rigors, or chills at this time. PAST MEDICAL HISTORY: History of liver cancer, diabetes mellitus, GERD, bladder cancer. Rest of the history and chart is also reviewed. HOME MEDICATIONS: Reviewed include, 1. Ibuprofen. 2. Valium. Dose and rest of medications noted. ALLERGIES: None. FAMILY HISTORY: History of colon cancer. SOCIAL HISTORY: History of smoking. REVIEW OF SYSTEMS: Fourteen-point review is negative except as mentioned earlier. PHYSICAL EXAMINATION: VITAL SIGNS: Pulse is 67, blood pressure 130/70, respirations 18. HEENT: Conjunctivae normal. NECK: No JVD. CARDIOVASCULAR: S1, S2 normal. RESPIRATIONS: A few scattered rhonchi and crackles. ABDOMEN: Soft, obese, mild diffuse tenderness. No guarding. No rebound. No mass. LEGS: No edema. NERVOUS SYSTEM: Nonfocal. SKIN: No ulcer, rash, bleeding. JOINTS: No active deforming arthropathy. LABORATORY DATA: Noted. Alkaline phosphatase 208. ASSESSMENT: 1. Abdominal pain, possibly secondary to liver metastasis. 2. Bladder cancer history. 3. Aortic lymphadenopathy. 4. Right lower lobe pneumonia persistent. 5. Diabetes mellitus, type 2. 6. Gastroesophageal reflux disease. 7. History of cholecystectomy. 8. History of nicotine dependence. RECOMMENDATIONS AND DISCUSSION: This is an 83-year-old gentleman presented with multiple complex medical issues. We will monitor the patient closely. I would recommend intravenous IV antibiotics. I would recommend Zosyn and continue to monitor. Pulmonary consultation for pneumonia. I would also recommend mycoplasma and Legionella testing. Otherwise, I would also recommend Hematology/Oncology evaluation. Adjust the pain medications. Prognosis guarded because of multiple complex medical issues. Further recommendations to follow. See orders for further details. MMODL / IJN: [id number] /
[2023-09-26] MEDS: PANTOPRAZOLE 40 MG TABLET PO SCH (08:42)
--- NOTE | 2023-09-26 08:53 | US ---
EXAMINATION TYPE: US discontinued liver bx panel DATE OF EXAM: 09/25/2023 4:28 PM REASON FOR EXAM: 83-year-old male with multiple hepatic lesions. Referred for percutaneous sampling. RADIOLOGIST: Dr. Underwood PROCEDURE: The patient was brought into the ultrasound suite. The procedure, along with risks and complications were discussed with the patient. Patient agreed to proceed with the procedure. A consent was signed and placed in patient 's chart. 0.5 mg Dilaudid was administered by radiology nursing for pain control, pain reported 10 out of 10. B lood pressure showed initial improvement from 170 systolic to 160 systolic. However, prior to skin an esthetization, systolic blood pressure was measured at 190 systolic with pain reported as 8/10. The procedure was discontinued at this time. Adequate blood pressure control will be needed prior to solid organ biopsy. Patient was sent back to inpatient room. IMPRESSION: Procedure discontinued due to hypertension, systolic blood pressure in the 190s. Patient will need blood pressure control prior to the solid organ biopsy.
[2023-09-26] MEDS ORDERED: LEVOFLOXACIN 750 MG TAB PO SCH (09:00)
[2023-09-26] MEDS: diazePAM 5 MG TAB PO PRN (09:41)
[2023-09-26 10:48] LABS: Basophils # (A) 0.08 X 10*3/uL (0.00-0.10); Basophils % (A) 1.1 %; Eosinophils # (A) 0.16 X 10*3/uL (0.04-0.35); Eosinophils % (A) 2.1 %; HCT 38.4 % (39.6-50.0); HGB 12.7 g/dL (13.0-17.0); Lymphocytes # (A) 3.04 X 10*3/uL (0.90-5.00); Lymphocytes % (A) 40.7 %; MCH 32.2 pg (27.0-32.0); MCHC 33.1 g/dL (32.0-37.0); MCV 97.2 FL (80.0-97.0); Mean Platelet Volume 10.3 FL (9.5-12.2); Monocytes # (A) 0.59 X 10*3/uL (0.20-1.00); Monocytes % (A) 7.9 %; NRBC Per 100 WBC 0 X 10*3/uL (0.00-0.01); Neutrophils # (A) 3.58 X 10*3/uL (1.80-7.70); Neutrophils % (A) 47.9 %; Platelet Count 183 X 10*3/uL (140-440); RBC 3.95 X 10*6/uL (4.40-5.60); RDW 12.6 % (11.5-14.5); WBC 7.47 X 10*3/uL (4.50-10.00)
[2023-09-26 11:07] LABS: ALT 45 U/L (10-49); AST 95 U/L (14-35); Albumin 3.6 g/dL (3.8-4.9); Albumin/Globulin Ratio 1.57 Ratio (1.60-3.17); Alkaline Phosphatase 168 U/L (41-126); Blood Urea Nitrogen 10.2 mg/dL (9.0-27.0); Calcium 9.1 mg/dL (8.7-10.3); Carbon Dioxide 23.2 mmol/L (21.6-31.8); Chloride 102 mmol/L (96-109); Globulin 2.3 g/dL (1.6-3.3); Glucose 107 mg/dL (70-110); Lipase 44 U/L (14-60); Phosphorus 2.7 mg/dL (2.4-5.1); Potassium 4.4 mmol/L (3.5-5.5); Sodium 136 mmol/L (135-145); Total Bilirubin 0.7 mg/dL (0.3-1.2); Total Protein 5.9 g/dL (6.2-8.2)
--- NOTE | 2023-09-26 11:25 | P.PN ---
Subjective Progress Note Date: 09/26/23 At today's visit patient is resting comfortably in bed. Reporting persisting right upper quadrant pain. Pain is improvement with lying on side. He was unable to tolerate liver biopsy yesterday, procedure was canceled due to pain and hypertension. Will reattempt today. Will plan to premedicate patient with Dilaudid and valium prior to procedure. Blood pressure is stable and controlled this morning Objective - Vital Signs Vital signs: Vital Signs Temp 98.2 F 09/26/23 07:17 Pulse 64 09/26/23 11:11 Resp 16 09/26/23 11:11 BP 156/63 09/26/23 11:11 Pulse Ox 96 09/26/23 11:11 FiO2 Intake & Output 09/25/23 09/26/23 09/26/23 18:59 06:59 18:59 Intake Total 600 Output Total 350 Balance 600 -350 Intake: Intake, IV Titration 600 Amount Sodium Chloride 0.9% 1, 600 000 ml @ 50 mls/hr IV . Q20H [facility] Rx#:[id number] Output: Urine 350 Other: Voiding Method Toilet Toilet Toilet - Constitutional General appearance: Present: no acute distress - EENT Eyes: Present: anicteric sclerae, EOMI ENT: Present: hearing grossly normal - Respiratory Details: breathing is even and unlabored - Cardiovascular Details: skin warm and dry - Gastrointestinal General gastrointestinal: Present: soft, tenderness Localized gastrointestinal: tender: RUQ - Musculoskeletal Musculoskeletal: Present: strength equal bilaterally - Psychiatric Psychiatric: Present: A&O x's 3 - Labs CBC & Chem 7: 09/26/23 05:41 09/26/23 05:41 Labs: Abnormal Lab Results - Last 24 Hours (Table) 09/25/23 09/25/23 09/25/23 Range/Units 12:41 15:10 20:17 RBC (4.40-5.60) X 10*6/uL Hgb (13.0-17.0) g/dL Hct (39.6-50.0) % MCV (80.0-97.0) FL MCH (27.0-32.0) pg Sodium 136 L (137-145) mmol/L BUN/Creatinine Ratio (12.00-20.00) Ratio Glucose 105 H (74-99) mg/dL POC Glucose (mg/dL) 112 H 146 H (70-110) mg/dL AST 109 H (17-59) U/L ALT 56 H (4-49) U/L Alkaline Phosphatase 166 H (38-126) U/L C-Reactive Protein (0.00-0.80) mg/dL Total Protein (6.2-8.2) g/dL Albumin (3.8-4.9) g/dL Albumin/Globulin Ratio (1.60-3.17) Ratio 09/26/23 09/26/23 Range/Units 05:41 05:41 RBC 3.95 L (4.40-5.60) X 10*6/uL Hgb 12.7 L (13.0-17.0) g/dL Hct 38.4 L (39.6-50.0) % MCV 97.2 H (80.0-97.0) FL MCH 32.2 H (27.0-32.0) pg Sodium (137-145) mmol/L BUN/Creatinine Ratio 10.20 L (12.00-20.00) Ratio Glucose (74-99) mg/dL POC Glucose (mg/dL) (70-110) mg/dL AST 95 H (17-59) U/L ALT (4-49) U/L Alkaline Phosphatase 168 H (38-126) U/L C-Reactive Protein 6.50 H (0.00-0.80) mg/dL Total Protein 5.9 L (6.2-8.2) g/dL Albumin 3.6 L (3.8-4.9) g/dL Albumin/Globulin Ratio 1.57 L (1.60-3.17) Ratio Assessment and Plan (1) RUQ abdominal pain Current Visit: Yes Status: Acute Priority: High Code(s): R10.11 - RIGHT UPPER QUADRANT PAIN SNOMED Code(s): 928915112 (2) Right lower lobe pneumonia Current Visit: Yes Status: Acute Priority: High Code(s): J18.9 - PNEUMONIA, UNSPECIFIED ORGANISM SNOMED Code(s): 121234054 Plan: Abdominal pain: -Presented to the emergency room with complaints of abdominal pain for approx 6 weeks that has worsened over the last 3 weeks with associated nausea. Also reporting intermittent constipation and diarrhea over the last 6 months. Reports 10 pound weight loss in the last 3 months. Last colonoscopy was 10 years ago. Significant history of bladder cancer and was treated by urology and underwent TURBT. Patient did not receive systemic treatment. Last cystoscopy was approx 5 years ago. -Upon admission CT abdomen and pelvis revealed airspace consolidation in the right lower lobe consistent with pneumonia. Diffuse hepatic metastases. Mild wall thickening of urinary bladder. Cholecystectomy. Diverticulitis without acute diverticulitis. No small bowel obstruction or no free intaperitoneal air. Bilirubin 1.1 Transaminitis noted. Elevated amylase at 180 and Lipase 611. -Discussed scan findings and concerns for malignancy with patient and family. They verbalized understanding and were agreeable to proceed with further testing. -IR consult placed for liver biopsy. He was unable to tolerate liver biopsy yesterday, procedure was canceled due to pain and hypertension. Will reattempt today. Will plan to premedicate patient with Dilaudid and valium prior to procedure. Pneumonia: -Chest x-ray revealed airspace consolidation in the right lower lobe. Patient started on IV antibiotics. -Viral serology negative -ID and pulm following attests: I have seen and examined pt, performed H&P, developed impression and plan of care. Discussed with dictator. Agree with documentation, dictated as a scribe.
[2023-09-26 12:16] LABS: Glucose,Whole Blood 115 mg/dL (70-110)
--- NOTE | 2023-09-26 12:29 | US ---
EXAM: US biopsy liver EXAM DATE AND TIME: 09/26/2023 HISTORY: 83-year-old male hepatic metastasis, referred for core needle biopsy. PROCEDURE: CONSENT: The nature of the procedure with its risks, its benefits, and its alternatives were discu ssed the patient. The patient was given an opportunity to ask questions, and written consent was obta ined from the patient. PREPARATION AND GUIDANCE: The target area was localized, a hepatic mass in the anterior left live r lobe was targeted for biopsy. The overlying skin was prepped and draped in a sterile fashion. The s kin site and proposed needle tract were anesthetized with 1% lidocaine. A 17/18 gauge 10 cm biopsy needle system was advanced into the targeted area under direct ultrasound guidance. SPECIMENS: Two 18-gauge core biopsies were obtained and placed in formalin solution. Specimens we re sent to pathology by the ground crewman aircraft support. ADDITIONAL IMAGING: Post procedure images were obtained in the area of interest. No abnormal fluid collection or other complication at the site of biopsy. PATIENT CONDITION AND DISPOSITION: The patient tolerated the procedure well and was released back to his inpatient room in satisfactory condition with routine post procedure instructions. COMPARISON: CT 09/24/2023 FINDINGS: Images confirm that the specimens were obtained within the targeted lesion. Post procedure images do not reveal any immediate complication. IMPRESSION Technically successful ultrasound-guided biopsy of a random liver mass in a patient with diffuse hepa tic metastases. A lesion in the anterior left liver lobe was targeted. Pathology pending.
--- NOTE | 2023-09-26 15:32 | P.CNPUL ---
History of Present Illness Consult date: 09/26/23 Requesting physician: eJannie Richardson Reason for consult: abnormal CXR/CT Chief complaint: Right upper quadrant abdominal pain History of present illness: This is a pleasant 83-year-old male patient with a known history of bladder cancer, diabetes mellitus, 70 year chronic and ongoing tobacco dependence. He presented here on 09/24/2023 with complaints of severe right upper quadrant pain. He scan of the abdomen revealed air space consolidation in the right lower lobe. Diffuse hepatic metastasis correlate for primary malignancy. Mild wall thickening of the urinary bladder. We're consulted for the abnormality in the right lower lobe. He is seen today in consultation on the regular medical floor. He is currently sitting up in bed. Awake and alert in no acute distress. He he did undergo a liver biopsy this morning. He denies any shortness of breath, cough or congestion. No fever or chills. He is maintaining good O2 saturations in the 90s on room air. White count 7.4. Hemoglobin 12.7. Platelets 183. Sodium 136. Potassium 4.1 bicarb 23. BUN 10. Creatinine 1.0. Glucose 107. A ST 95. ALT 45. Pro-calcitonin 2.80. He is currently on Zosyn. Review of Systems REVIEW OF SYSTEMS: CONSTITUTIONAL: Denies any recent significant weight loss or weight gain. EYES: Denies change in vision. EARS, NOSE, MOUTH, THROAT: Denies headaches, denies sore throat. CARDIOVASCULAR: Denies chest pain, palpitations or syncopal episodes. RESPIRATORY: Denies shortness of breath, cough, congestion or hemoptysis. GASTROINTESTINAL: Positive for abdominal pain GENITOURINARY: Denies hematuria, denies infections. MUSKULOSKELETAL: Denies pain, denies swelling. INTEGUMENTARY: Denies rash, denies eczema. NEUROLOGICAL: Denies recent memory loss, no recent seizure activity. PSYCHIATRIC: Denies anxiety, denies depression. HEMATOLOGIC/LYMPHATIC: Denies anemia, denies enlarged lymph nodes. Past Medical History Past Medical History: Cancer, Diabetes Mellitus, GERD/Reflux Additional Past Medical History / Comment(s): Bladder cancer History of Any Multi-Drug Resistant Organisms: None Reported Past Surgical History: Bladder Surgery, Cholecystectomy Additional Past Surgical History / Comment(s): Patient said he had polyps r emoved from bladder and a bladder "wash". Past Anesthesia/Blood Transfusion Reactions: No Reported Reaction Past Psychological History: No Psychological Hx Reported Smoking Status: Current every day smoker Past Alcohol Use History: Occasional Past Drug Use History: None Reported Additional Drug Use History / Comment(s): Alphonse smokes approx. 9 cigarettes a day. - Past Family History Father Additional Family Medical History / Comment(s): Colon cancer. Medications and Allergies Home Medications Medication Instructions Recorded Confirmed Type Ibuprofen 800 mg PO TID PRN 09/25/23 09/25/23 History Omeprazole [PriLOSEC] 20 mg PO DAILY 09/25/23 09/25/23 History diazePAM [Valium] 5 mg PO TID PRN 09/25/23 09/25/23 History Allergies Allergy/AdvReac Type Severity Reaction Status Date / Time No Known Allergies Allergy Verified 11/09/21 14:56 Physical Exam Vitals: Vital Signs Temp Pulse Resp BP BP Pulse Ox 09/26/23 14:06 58 L 133/77 93 L 09/26/23 13:51 56 L 138/71 95 09/26/23 13:21 58 L 146/78 94 L 09/26/23 12:52 58 L 145/61 94 L 09/26/23 12:33 56 L 139/65 94 L 09/26/23 11:51 98.0 F 63 16 125/67 94 L 09/26/23 11:41 60 16 149/65 95 09/26/23 11:32 57 L 16 149/65 94 L 09/26/23 11:20 56 L 16 153/68 94 L 09/26/23 11:11 64 16 156/63 96 09/26/23 11:05 62 16 147/67 93 L 09/26/23 10:52 65 16 159/70 92 L 09/26/23 10:41 57 L 16 135/63 91 L 09/26/23 10:31 63 16 147/67 92 L 09/26/23 10:22 57 L 16 159/67 91 L 09/26/23 10:13 59 L 16 181/73 92 L 09/26/23 10:05 58 L 16 166/75 92 L 09/26/23 09:58 69 16 186/87 95 09/26/23 09:57 79 16 198/81 95 09/26/23 07:17 98.2 F 60 16 108/50 91 L 09/26/23 01:06 98.0 F 65 18 111/50 92 L 09/26/23 01:00 92 L 09/25/23 19:24 98.3 F 62 18 161/65 94 L 09/25/23 16:10 70 16 193/83 91 L 09/25/23 16:02 74 16 160/72 93 L 09/25/23 15:45 69 18 177/79 93 L Intake and Output 09/26/23 09/26/23 09/26/23 06:59 14:59 22:59 Output Total 350 Balance -350 Output: Urine 350 Other: Voiding Method Toilet GENERAL EXAM: Alert, active, comfortable in no apparent distress. HEAD: Normocephalic. EYES: Normal reaction of pupils, equal size. NOSE: Clear with pink turbinates. THROAT: No erythema or exudates. NECK: No masses, no JVD. CHEST: No chest wall deformity. LUNGS: Equal air entry with no crackles, wheeze, rhonchi or dullness. CVS: S1 and S2 normal with no audible murmur, regular rhythm. ABDOMEN: Positive for right upper quadrant pain, normal bowel sounds, no guarding or rigidity. SPINE: No scoliosis or deformity SKIN: No rashes CENTRAL NERVOUS SYSTEM: No focal deficits, tone is normal in all 4 extremities. EXTREMITIES: There is no peripheral edema. No clubbing, no cyanosis. Peripheral pulses are intact. Results - Laboratory Findings CBC and BMP: 09/26/23 05:41 09/26/23 05:41 PT/INR, D-dimer PT 11.1 sec (10.0-12.5) 09/25/23 12:28 INR 1.0 (<1.2) 09/25/23 12:28 Abnormal lab findings: Abnormal Labs 09/24/23 09/24/23 09/25/23 21:44 21:44 02:21 WBC 11.0 H RBC Hgb Hct MCV MCH Lymphocytes # 5.6 H Sodium BUN/Creatinine Ratio Glucose 152 H POC Glucose (mg/dL) 125 H AST 125 H ALT 67 H Alkaline Phosphatase 208 H C-Reactive Protein Total Protein Albumin Albumin/Globulin Ratio Amylase 180 H Lipase 611 H Procalcitonin 09/25/23 09/25/23 09/25/23 12:41 15:10 20:17 WBC RBC Hgb Hct MCV MCH Lymphocytes # Sodium 136 L BUN/Creatinine Ratio Glucose 105 H POC Glucose (mg/dL) 112 H 146 H AST 109 H ALT 56 H Alkaline Phosphatase 166 H C-Reactive Protein Total Protein Albumin Albumin/Globulin Ratio Amylase Lipase Procalcitonin 09/26/23 09/26/23 09/26/23 05:41 05:41 05:41 WBC RBC 3.95 L Hgb 12.7 L Hct 38.4 L MCV 97.2 H MCH 32.2 H Lymphocytes # Sodium BUN/Creatinine Ratio 10.20 L Glucose POC Glucose (mg/dL) AST 95 H ALT Alkaline Phosphatase 168 H C-Reactive Protein 6.50 H Total Protein 5.9 L Albumin 3.6 L Albumin/Globulin Ratio 1.57 L Amylase Lipase Procalcitonin 2.80 H 09/26/23 12:14 WBC RBC Hgb Hct MCV MCH Lymphocytes # Sodium BUN/Creatinine Ratio Glucose POC Glucose (mg/dL) 115 H AST ALT Alkaline Phosphatase C-Reactive Protein Total Protein Albumin Albumin/Globulin Ratio Amylase Lipase Procalcitonin - Diagnostic Findings Chest x-ray: image reviewed CT scan - chest: image reviewed Assessment and Plan Assessment: Right upper quadrant pain secondary to liver metastasis, status post biopsy today 09/26/2023 Right lower lobe consolidation suspect pneumonia versus malignancy. Pro- calcitonin 2.80. Currently on Zosyn History of bladder cancer Chronic and ongoing tobacco dependence of 70 years Plan: The patient was seen and evaluated Chest x-ray, computed tomography scan of the chest, labs and medications reviewed Continue Zosyn for now, elevated pro calcitonin Await liver biopsy results Outpatient PET scan Currently stable and on room air We will continue to follow and make further recommendations based on his clinical status I have personally seen and examined the patient, performed the documentation and the assessment and plan as written. Number of minutes spent on the visit: 20.
[2023-09-26 17:18] LABS: Glucose,Whole Blood 112 mg/dL (70-110)
--- NOTE | 2023-09-26 18:06 | CT ---
EXAMINATION TYPE: CT chest w con CT DLP: 389.4 mGycm, Automated exposure control for dose reduction was used. DATE OF EXAM: 09/25/2023 10:50 PM COMPARISON: CT abdomen pelvis 09/24/2023 . CLINICAL INDICATION:Male, 83 years old with history of liver mets, staging; PHH, Liver mets shown on a/p x 1 day ago. Staging Scan. TECHNIQUE: Multiple axial images were obtained through the chest. Sagittal and coronal reformats were created for review. Contrast used:100ML mL of Isovue 300 with IV Contrast (None if empty) Oral contrast used: (None if empty) FINDINGS: LUNGS/ PLEURA: Minimal biapical emphysema suggested. Bibasilar stranding, left greater than right, suggesting subseg mental atelectasis a and/or scarring. No sizable nodule, mass or consolidation on the left. No sizabl e left pleural effusion or pneumothorax. The right upper and middle lobes demonstrate no sizable nodules. In the right lower lobe, there is a large conglomerate solid mass with extensively lobulated borders and tiny satellite nodularity. The m ajor portion of the mass is up to 5.3 x 5.1 cm axially image 35 series 4, and extends up to 3.9 cm in greatest craniocaudal extent. Largest nodule seen at the periphery of the mass is subpleural postero laterally measuring 1.2 x 1.1 cm image 40. Cranial to the mass in the superior segment of the right l ower lobe there is an 1.1 x 1 cm nodule image 26. AIRWAY: Large central airways are patent. There are small globular filling defects along the right tr acheal wall most suggestive of mucous secretions. Left mainstem bronchus and distal branches appear p atent. The right mainstem bronchus and right upper lobe bronchus are patent. The bronchus intermedius is mildly narrowed, and the proximal right middle and lower lobe bronchi are moderately narrowed (by the hilar soft tissue mass/adenopathy) but remain patent. LOWER NECK: No significant findings. MEDIASTINUM / MARY: Right hilar conglomerate soft tissue densities are present consistent with metastatic involvement. Ex amples include: Right infrahilar 3.4 x 2 cm image 36, right suprahilar 4 x 2.4 cm image 29. Right sub carinal adenopathy measures 4.2 x 2.8 cm image 31. A small node with 0.75 cm short axis adjacent to t he distal esophagus is not considered enlarged but appears mildly prominent. Superiorly closer to the thoracic inlet there is a right posterior paratracheal node superiorly measuring 1.7 x 1 cm on image 13. No left hilar adenopathy is appreciated. HEART: Mild cardiomegaly. Mild to moderate coronary artery calcification and/or stents. No appreciabl e pericardial effusion. VASCULATURE: Mild to moderate atherosclerotic calcifications of the aorta and branches. Ascending ao rta is 4.2 CM, descending is 3.2 CM. Aorta is considered ectatic in its ascending and descending seg ments. Pulmonary trunk measures 3.1 CM, mildly enlarged. Grossly preserved enhancement of the pulmon landon arteries, in the limits of non-CTA exam, without definite evidence of embolus. Pulmonary arterial branches in the right hilum are minimally narrowed by the metastatic adenopathy. Left-sided branches are unremarkable. SOFT TISSUES/LYMPH NODES: Unremarkable chest wall soft tissues. No axillary adenopathy. UPPER ABDOMEN: Redemonstrated are multiple relatively hypodense ill-defined target shaped lesions throughout the blake er consistent with metastases. Question possible early cirrhotic morphology. No mass of the visualize d adrenals. MUSCULOSKELETAL: Mild multilevel degenerative changes throughout the thoracic spine. No definite evid ence of lytic/blastic bony lesion. No acute abnormality. IMPRESSION: 1. Large lobulated conglomerate mass in the right lower lobe could represent primary lung malignancy , possibly metastasis. 2. Numerous satellite nodules about #1, and a separate small nodule in the superior segment of the r ight lower lobe, consistent with metastases. 3. Conglomerate right hilar adenopathy, and right subcarinal adenopathy, consistent with metastases. 4. Mildly enlarged right posterior paratracheal node near the thoracic inlet, of uncertain metastati c status. Borderline prominent lymph node visible by the distal esophagus. Attention on follow-up. 5. No evidence of left lung nodule/mass or left hilar adenopathy. 6. Redemonstration of diffuse hepatic metastases.
--- NOTE | 2023-09-26 18:26 | P.PN ---
Subjective Progress Note Date: 09/26/23 Principal diagnosis: Reason for follow-up is abnormal chest x-ray and Question of pneumonia Patient is a 83-year-old male with a past medical history significant for bladder cancer history of diabetes mellitus and reflux patient presenting to the hospital for evaluation of right upper quadrant abdominal pain, patient did have a CT of abdominal pelvis with evidence of possible hepatic metastasis and there was a question of right lower lobe pneumonia. On today's evaluation that is 09/26/2023, the patient denies having any fever or any chills he is breathing comfortably patient did have occasional cough not bring up any sputum patient denies having any nausea no vomiting abdominal pain is currently controlled no diarrhea. Patient white count is 7.47, creatinine is 1.0 CRP 6.50 procalcitonin is 2.80 Objective - Vital Signs Vital signs: Vital Signs Temp 98.2 F 09/26/23 17:13 Pulse 67 09/26/23 17:48 Resp 16 09/26/23 17:48 BP 166/70 09/26/23 17:48 Pulse Ox 96 09/26/23 17:48 FiO2 Intake & Output 09/25/23 09/26/23 09/26/23 18:59 06:59 18:59 Intake Total 600 Output Total 350 Balance 600 -350 Intake: Intake, IV Titration 600 Amount Sodium Chloride 0.9% 1, 600 000 ml @ 50 mls/hr IV . Q20H [facility] Rx#:[id number] Output: Urine 350 Other: Voiding Method Toilet Toilet Toilet - Exam GENERAL DESCRIPTION: An elderly male lying in bed in no distress RESPIRATORY SYSTEM: Unlabored breathing , decreased breath sounds at bases HEART: S1 S2 regular rate and rhythm , ABDOMEN: Soft , no tenderness EXTREMITIES: No edema feet - Labs CBC & Chem 7: 09/26/23 05:41 09/26/23 05:41 Labs: Abnormal Lab Results - Last 24 Hours (Table) 09/25/23 09/26/23 09/26/23 Range/Units 20:17 05:41 05:41 RBC 3.95 L (4.40-5.60) X 10*6/uL Hgb 12.7 L (13.0-17.0) g/dL Hct 38.4 L (39.6-50.0) % MCV 97.2 H (80.0-97.0) FL MCH 32.2 H (27.0-32.0) pg BUN/Creatinine Ratio (12.00-20.00) Ratio POC Glucose (mg/dL) 146 H (70-110) mg/dL AST (14-35) U/L Alkaline Phosphatase (41-126) U/L C-Reactive Protein (0.00-0.80) mg/dL Total Protein (6.2-8.2) g/dL Albumin (3.8-4.9) g/dL Albumin/Globulin Ratio (1.60-3.17) Ratio Procalcitonin 2.80 H (0.02-0.09) ng/mL 09/26/23 09/26/23 09/26/23 Range/Units 05:41 12:14 17:16 RBC (4.40-5.60) X 10*6/uL Hgb (13.0-17.0) g/dL Hct (39.6-50.0) % MCV (80.0-97.0) FL MCH (27.0-32.0) pg BUN/Creatinine Ratio 10.20 L (12.00-20.00) Ratio POC Glucose (mg/dL) 115 H 112 H (70-110) mg/dL AST 95 H (14-35) U/L Alkaline Phosphatase 168 H (41-126) U/L C-Reactive Protein 6.50 H (0.00-0.80) mg/dL Total Protein 5.9 L (6.2-8.2) g/dL Albumin 3.6 L (3.8-4.9) g/dL Albumin/Globulin Ratio 1.57 L (1.60-3.17) Ratio Procalcitonin (0.02-0.09) ng/mL Microbiology - Last 24 Hours (Table) 09/25/23 11:40 Blood Culture - Preliminary Blood Assessment and Plan (1) Right lower lobe pneumonia Current Visit: Yes Status: Acute Priority: High Code(s): J18.9 - PNEUMONIA, UNSPECIFIED ORGANISM SNOMED Code(s): 485607040 Plan: 1patient presented to hospital with right upper quadrant abdominal pain in this patient on did have history of bladder cancer and evidence of diffuse hepatic metastasis could be responsible for his symptomatology 2-patient also have evidence of consolidation on the CT with a question of possible atelectasis, patient did have elevated procalcitonin, component of Pneumonia not excluded 3-we will wait for CT of the chest that has been ordered for this afternoon 4-patient to continue with empiric Zosyn and monitor clinical course closely Dictation was produced using [employer] dictation software. please excuse any grammatical, word or spelling errors. Time with Patient: Less than 30
[2023-09-26 20:31] LABS: Glucose,Whole Blood 103 mg/dL (70-110)
[2023-09-27] MEDS: PIPERACILLIN-TAZOBACTAM 3.375 GM in SODIUM CHLORIDE 0.9% 100 ML IVPB SCH ×3 (01:32→17:41)
[2023-09-27] MEDS: SODIUM CHLORIDE 0.9% 1,000 ML IV SCH ×2 (01:32→17:38)
[2023-09-27] MEDS: HYDROmorphone 1 MG/ML 1 ML SYRINGE IVP PRN ×5 (05:43→23:59)
--- NOTE | 2023-09-27 07:00 | PN ---
PROGRESS NOTE DATE OF SERVICE: 09/26/2023 SUBJECTIVE: This is an 83-year-old gentleman who was admitted with abdominal pain, possible liver mets and other multiple abnormalities, had an attempted liver biopsy yesterday, but today the patient underwent liver biopsy. The patient also had multiple other medical issues including lymphadenopathy as well as possible pneumonia versus mass lesion in the right chest also. Multiple consultants are following the patient closely. The patient is on empiric treatment. PAST MEDICAL HISTORY: Reviewed. REVIEW OF SYSTEMS: A 14-point review is negative except as mentioned earlier. CURRENT MEDICATIONS: Reviewed include DuoNeb, rest of the medication and doses are reviewed. PHYSICAL EXAMINATION: VITAL SIGNS: Pulse is 60, blood pressure 149/60, respirations 16. HEENT: Conjunctivae normal. NECK: No jugular venous distention. CARDIOVASCULAR: S1, S2. RESPIRATIONS: Diminished breath sounds at the bases, few scattered rhonchi. ABDOMEN: Soft, nontender. NERVOUS SYSTEM: Nonfocal. LABS: C-reactive protein is 6.20. Procalcitonin is 2.80. ASSESSMENT: 1. Abdominal pain, possibly secondary to liver mets. 2. Bladder cancer history. 3. Possibly right-sided pneumonia, persistent. 4. Aortic lymphadenopathy. 5. Rule out liver mets. 6. Diabetes mellitus type 2. 7. Gastroesophageal reflux disease. 8. History of cholecystectomy. 9. History of nicotine dependence. RECOMMENDATIONS: Recommended to continue current management, continue symptomatic treatment, otherwise closely follow with multiple consultants including Pulmonary, Hematology Oncology, and Infectious Disease. Once again, the prognosis is extremely guarded. Further recommendations to follow. See orders for details. Repeat labs will be ordered. MMODL / IJN: [id number] /
[2023-09-27 07:17] LABS: Glucose,Whole Blood 84 mg/dL (70-110)
[2023-09-27] MEDS: PANTOPRAZOLE 40 MG TABLET PO SCH (08:17)
[2023-09-27 10:47] LABS: Basophils # (A) 0.07 X 10*3/uL (0.00-0.10); Eosinophils # (A) 0.22 X 10*3/uL (0.04-0.35); HCT 39.8 % (39.6-50.0); HGB 13.2 g/dL (13.0-17.0); Lymphocytes # (A) 3.26 X 10*3/uL (0.90-5.00); Lymphocytes % (A) 44.4 %; MCH 32.3 pg (27.0-32.0); MCHC 33.2 g/dL (32.0-37.0); MCV 97.3 FL (80.0-97.0); Mean Platelet Volume 10.5 FL (9.5-12.2); Monocytes # (A) 0.52 X 10*3/uL (0.20-1.00); Monocytes % (A) 7.1 %; NRBC Per 100 WBC 0 X 10*3/uL (0.00-0.01); Neutrophils # (A) 3.25 X 10*3/uL (1.80-7.70); Neutrophils % (A) 44.2 %; Platelet Count 204 X 10*3/uL (140-440); RBC 4.09 X 10*6/uL (4.40-5.60); RDW 12.7 % (11.5-14.5); WBC 7.34 X 10*3/uL (4.50-10.00)
[2023-09-27 10:58] LABS: BUN/Creat Ratio 9.17 Ratio (12.00-20.00); Chloride 102 mmol/L (96-109); Glucose 89 mg/dL (70-110); Potassium 4.4 mmol/L (3.5-5.5); Sodium 138 mmol/L (135-145)
[2023-09-27 10:59] LABS: ALT 44 U/L (10-49); AST 97 U/L (14-35); Albumin 3.7 g/dL (3.8-4.9); Albumin/Globulin Ratio 1.61 Ratio (1.60-3.17); Alkaline Phosphatase 166 U/L (41-126); Calcium 9.2 mg/dL (8.7-10.3); Carbon Dioxide 23.3 mmol/L (21.6-31.8); Globulin 2.3 g/dL (1.6-3.3); Total Bilirubin 0.8 mg/dL (0.3-1.2)
[2023-09-27 11:55] LABS: Glucose,Whole Blood 156 mg/dL (70-110)
--- NOTE | 2023-09-27 12:23 | P.PN ---
Subjective Progress Note Date: 09/27/23 At today's visit patient is resting comfortably in bedside chair. Reporting persisting right upper quadrant pain, but feels improved today. S/p liver biopsy, path pending Objective - Vital Signs Vital signs: Vital Signs Temp 98.7 F 09/27/23 12:00 Pulse 68 09/27/23 12:00 Resp 17 09/27/23 12:00 BP 120/60 09/27/23 12:00 Pulse Ox 96 09/27/23 12:00 FiO2 Intake & Output 09/26/23 09/27/23 09/27/23 18:59 06:59 18:59 Other: Voiding Method Toilet Toilet # Voids 1 1 - Constitutional General appearance: Present: average body habitus, no acute distress - EENT Eyes: Present: anicteric sclerae, EOMI ENT: Present: hearing grossly normal - Respiratory Details: breathing is even and unlabored - Cardiovascular Details: skin warm and dry - Integumentary Integumentary: Absent: cyanotic - Neurologic Neurologic: Present: CNII-XII intact - Musculoskeletal Musculoskeletal: Present: strength equal bilaterally - Psychiatric Psychiatric: Present: A&O x's 3 - Labs CBC & Chem 7: 09/27/23 05:34 09/27/23 05:34 Labs: Abnormal Lab Results - Last 24 Hours (Table) 09/26/23 09/26/23 09/27/23 Range/Units 12:14 17:16 05:34 RBC 4.09 L (4.40-5.60) X 10*6/uL MCV 97.3 H (80.0-97.0) FL MCH 32.3 H (27.0-32.0) pg Anion Gap (4.00-12.00) mmol/L BUN/Creatinine Ratio (12.00-20.00) Ratio POC Glucose (mg/dL) 115 H 112 H (70-110) mg/dL AST (14-35) U/L Alkaline Phosphatase (41-126) U/L Total Protein (6.2-8.2) g/dL Albumin (3.8-4.9) g/dL 09/27/23 09/27/23 Range/Units 05:34 11:54 RBC (4.40-5.60) X 10*6/uL MCV (80.0-97.0) FL MCH (27.0-32.0) pg Anion Gap 12.70 H (4.00-12.00) mmol/L BUN/Creatinine Ratio 9.17 L (12.00-20.00) Ratio POC Glucose (mg/dL) 156 H (70-110) mg/dL AST 97 H (14-35) U/L Alkaline Phosphatase 166 H (41-126) U/L Total Protein 6.0 L (6.2-8.2) g/dL Albumin 3.7 L (3.8-4.9) g/dL Microbiology - Last 24 Hours (Table) 09/25/23 11:40 Blood Culture - Preliminary Blood - Imaging and Cardiology CT scan - chest: report reviewed Assessment and Plan (1) RUQ abdominal pain Current Visit: Yes Status: Acute Priority: High Code(s): R10.11 - RIGHT UPPER QUADRANT PAIN SNOMED Code(s): 871011501 (2) Right lower lobe pneumonia Current Visit: Yes Status: Acute Priority: High Code(s): J18.9 - PNEUMONIA, UNSPECIFIED ORGANISM SNOMED Code(s): 741653058 (3) Lung mass Current Visit: Yes Status: Acute Priority: High Code(s): R91.8 - OTHER NONSPECIFIC ABNORMAL FINDING OF LUNG FIELD SNOMED Code(s): 437479212 (4) Liver lesion Current Visit: Yes Status: Acute Priority: High Code(s): K76.9 - LIVER DISEASE, UNSPECIFIED SNOMED Code(s): 143742815 Plan: Abdominal pain: -Presented to the emergency room with complaints of abdominal pain for approx 6 weeks that has worsened over the last 3 weeks with associated nausea. Also r eporting intermittent constipation and diarrhea over the last 6 months. Reports 10 pound weight loss in the last 3 months. Last colonoscopy was 10 years ago. Significant history of bladder cancer and was treated by urology and underwent TURBT. Patient did not receive systemic treatment. Last cystoscopy was approx 5 years ago. -Upon admission CT abdomen and pelvis revealed airspace consolidation in the right lower lobe consistent with pneumonia. Diffuse hepatic metastases. Mild wall thickening of urinary bladder. Cholecystectomy. Diverticulitis without acute diverticulitis. No small bowel obstruction or no free intaperitoneal air. Bilirubin 1.1 Transaminitis noted. Elevated amylase at 180 and Lipase 611. -Discussed scan findings and concerns for malignancy with patient and family. They verbalized understanding and were agreeable to proceed with further testing. -S/p liver biopsy, path pending -CT chest revealed large lobulated conglomerate mass in the right lower lobe. Measuring 5.3 x 5.1 cm. Numerous satellite nodules surrounding mass. Small nodule in the superior segment of the right lower lobe. Conglomerate right hilar adenopathy and right subcarinal adenopathy. Mildly enlarged right posterior paratracheal node near the thoracic inlet. Borderline prominent lymph node distal esophagus. No evidence of left lung nodule/mass or left hilar adenopathy. Results were discussed with patient and daughter. Discussed concern that this may be a lung primary based on size of mass. Will await pending pathology MRI brain ordered Pneumonia: -Chest x-ray revealed airspace consolidation in the right lower lobe. Patient started on IV antibiotics. -Viral serology negative -ID and pulm following
[2023-09-27] MEDS ORDERED: HYDROcodone/APAP 7.5-325MG 1 EACH TAB PO PRN (12:24)
[2023-09-27] MEDS: DOCUSATE 100 MG CAP PO SCH ×2 (13:03→19:59)
--- NOTE | 2023-09-27 14:39 | P.PN ---
Subjective Progress Note Date: 09/27/23 This is a pleasant 83-year-old male patient with a known history of bladder cancer, diabetes mellitus, 70 year chronic and ongoing tobacco dependence. He presented here on 09/24/2023 with complaints of severe right upper quadrant pain. He scan of the abdomen revealed air space consolidation in the right lower lobe. Diffuse hepatic metastasis correlate for primary malignancy. Mild wall thickening of the urinary bladder. We're consulted for the abnormality in the right lower lobe. He is seen today in consultation on the regular medical floor. He is currently sitting up in bed. Awake and alert in no acute distress. He he did undergo a liver biopsy this morning. He denies any shortness of breath, cough or congestion. No fever or chills. He is maintaining good O2 saturations in the 90s on room air. White count 7.4. Hemoglobin 12.7. Platelets 183. Sodium 136. Potassium 4.1 bicarb 23. BUN 10. Creatinine 1.0. Glucose 107. A ST 95. ALT 45. Pro-calcitonin 2.80. He is currently on Zosyn. The patient is seen today 09/27/2023 in follow-up on the regular medical floor. His been up ambulating in his room. He is maintaining good O2 saturations in the 90s on room air. He has normal saline at 50 MLS per hour. His pro- calcitonin was 2.80. Liver biopsy results still pending. Computed tomography scan of the chest revealed a large lobulated conglomerate mass in the right low er lobe suspicious for primary lung malignancy, possible metastasis. Numerous satellite nodules and separate small nodule superior segment of the right lower lobe consistent with metastasis. Conglomerate right hilar adenopathy and right subcarinal adenopathy consistent with metastasis. Blood culture revealed no growth. White count 10.3. Hemoglobin 13.2. Platelets 204. Sodium 138. Potassium 4.4. Bicarb 23. BUN 11. Creatinine 1.2. Glucose 89. He remains on Zosyn. Continued on bronchodilators. Heparin for DVT prophylaxis. Objective - Vital Signs Vital signs: Vital Signs Temp 98.7 F 09/27/23 12:00 Pulse 68 09/27/23 12:00 Resp 17 09/27/23 12:00 BP 120/60 09/27/23 12:00 Pulse Ox 96 09/27/23 12:00 FiO2 Intake & Output 09/26/23 09/27/23 09/27/23 18:59 06:59 18:59 Other: Voiding Method Toilet Toilet # Voids 1 1 - Exam GENERAL EXAM: Alert, pleasant 83-year-old male, on room air, comfortable in no apparent distress. HEAD: Normocephalic. EYES: Normal reaction of pupils, equal size. NOSE: Clear with pink turbinates. THROAT: No erythema or exudates. NECK: No masses, no JVD. CHEST: No chest wall deformity. LUNGS: Equal air entry with no crackles, wheeze, rhonchi or dullness. CVS: S1 and S2 normal with no audible murmur, regular rhythm. ABDOMEN: Positive for right upper quadrant pain, normal bowel sounds, no guarding or rigidity. SPINE: No scoliosis or deformity SKIN: No rashes CENTRAL NERVOUS SYSTEM: No focal deficits, tone is normal in all 4 extremities. EXTREMITIES: There is no peripheral edema. No clubbing, no cyanosis. Peripheral pulses are intact. - Labs CBC & Chem 7: 09/27/23 05:34 09/27/23 05:34 Labs: Abnormal Lab Results - Last 24 Hours (Table) 09/26/23 09/27/23 09/27/23 Range/Units 17:16 05:34 05:34 RBC 4.09 L (4.40-5.60) X 10*6/uL MCV 97.3 H (80.0-97.0) FL MCH 32.3 H (27.0-32.0) pg Anion Gap 12.70 H (4.00-12.00) mmol/L BUN/Creatinine Ratio 9.17 L (12.00-20.00) Ratio POC Glucose (mg/dL) 112 H (70-110) mg/dL AST 97 H (14-35) U/L Alkaline Phosphatase 166 H (41-126) U/L Total Protein 6.0 L (6.2-8.2) g/dL Albumin 3.7 L (3.8-4.9) g/dL 09/27/23 Range/Units 11:54 RBC (4.40-5.60) X 10*6/uL MCV (80.0-97.0) FL MCH (27.0-32.0) pg Anion Gap (4.00-12.00) mmol/L BUN/Creatinine Ratio (12.00-20.00) Ratio POC Glucose (mg/dL) 156 H (70-110) mg/dL AST (14-35) U/L Alkaline Phosphatase (41-126) U/L Total Protein (6.2-8.2) g/dL Albumin (3.8-4.9) g/dL Microbiology - Last 24 Hours (Table) 09/25/23 11:40 Blood Culture - Preliminary Blood Assessment and Plan Assessment: Right upper quadrant pain secondary to liver metastasis, status post biopsy 09/26/2023 Right lower lobe consolidation suspect pneumonia versus malignancy. Pro- calcitonin 2.80. Currently on Zosyn History of bladder cancer Chronic and ongoing tobacco dependence of 70 years Plan: The patient was seen and evaluated Computed tomography scan of the chest, labs and medications reviewed Antibiotics per ID services Awaiting liver biopsy results Outpatient PET scan Currently stable and on room air Cleared for discharge from the pulmonary standpoint I have personally seen and examined the patient, performed the documentation and the assessment and plan as written. Number of minutes spent on the visit: 10.
[2023-09-27] MEDS: diazePAM 5 MG TAB PO PRN (14:49)
--- NOTE | 2023-09-27 16:05 | MR ---
EXAMINATION TYPE: MR brain wo/w con DATE OF EXAM: 09/27/2023 COMPARISON: None HISTORY: Metastatic liver disease. CONTRAST: Performed utilizing 8.5 mL intravenous Gadavist gadolinium contrast. TECHNIQUE: Multiplanar, multiecho imaging on a 3.0 Kiersten magnet is performed through the brain. Stud y is performed within 24 hours of arrival to the hospital. The craniovertebral junction is normal. The pituitary is normal. Diffusion-weighted imaging is performed. No abnormal hyperintensity is present to suggest an acute i ntracranial infarct or acute ischemic change. There are scattered punctate areas of hyperintensity on T2 and Inversion Recovery weighted sequences which are non-specific but can be related to microvascular ischemic changes. Ventricles and sulci are appropriate for the patient age. No abnormal enhancement is evident such as metastatic disease. IMPRESSION: 1. No suspicious changes suggest metastatic disease. 2. Scattered periventricular and deep white matter punctate hyperintensities most likely on the basis of chronic white matter ischemic change
[2023-09-27] MEDS: PANTOPRAZOLE 40 MG/10 ML VIAL IVP SCH (19:59)
[2023-09-27] MEDS: HEPARIN SODIUM,PORCINE 5,000 UNIT/ML 1 ML VIAL SQ SCH (19:59)
[2023-09-27] MEDS: ONDANSETRON 4 MG/2 ML VIAL IVP PRN (23:59)
[2023-09-28] MEDS: PIPERACILLIN-TAZOBACTAM 3.375 GM in SODIUM CHLORIDE 0.9% 100 ML IVPB SCH ×3 (01:22→17:09)
--- NOTE | 2023-09-28 01:41 | PN ---
PROGRESS NOTE DATE OF SERVICE: 09/27/2023 SUBJECTIVE: This is an 83-year-old gentleman, admitted with multiple complex medical issues, had a liver biopsy. The patient had multiple METS in the liver. The patient also had bladder cancer history. A chest CT scan was done yesterday, which showed large lobulated conglomerate mass in the right lower lobe, possibly primary lung mass and satellite nodules. Multiple consultants are following the patient closely. The patient is complaining of severe abdominal pain at this time. PAST MEDICAL HISTORY: Reviewed. REVIEW OF SYSTEMS: A 14-point review is negative except as mentioned earlier. CURRENT MEDICATIONS: Reviewed include DuoNeb. Dose and rest of medications reviewed. PHYSICAL EXAMINATION: VITAL SIGNS: Pulse 63, blood pressure 140/74, respirations 18. HEENT: Conjunctivae normal. NECK: No JVD. CARDIOVASCULAR: S1, S2. RESPIRATIONS: Breath sounds diminished at the bases. A few scattered rhonchi. ABDOMEN: Soft, mild diffuse tenderness. No guarding. No rebound. No mass. Bowel sounds diminished. LEGS: No edema. NERVOUS SYSTEM: Nonfocal. LABORATORY DATA: Reviewed. ASSESSMENT: 1. Abdominal pain, possibly secondary to liver METS, status post liver biopsy. 2. Bladder cancer history. 3. Possible right lung cancer with satellite nodules. 4. Possible right-sided pneumonia persistent. 5. Aortic lymphadenopathy. 6. Diabetes mellitus, type 2. 7. Gastroesophageal reflux disease. 8. History of cholecystectomy. 9. History of nicotine dependence. RECOMMENDATIONS AND DISCUSSION: Recommend to continue current medications. Continue symptomatic treatment. The patient also had new findings on the CT scan as listed above. I would recommend to await for the biopsy report. Continue with pain management. The patient is complaining of severe pain and failure of outpatient treatment. I had a detailed discussion with the family. See orders for further details. Further recommendations to follow. Closely follow with multiple consultants. MMODL / IJN: [id number] /
[2023-09-28] MEDS: HYDROmorphone 1 MG/ML 1 ML SYRINGE IVP PRN ×4 (05:39→20:29)
[2023-09-28 07:29] LABS: Glucose,Whole Blood 90 mg/dL (70-110)
[2023-09-28] MEDS: PANTOPRAZOLE 40 MG/10 ML VIAL IVP SCH ×2 (07:58→20:31)
[2023-09-28] MEDS: HEPARIN SODIUM,PORCINE 5,000 UNIT/ML 1 ML VIAL SQ SCH ×2 (09:08→20:31)
[2023-09-28] MEDS: DOCUSATE 100 MG CAP PO SCH ×2 (09:08→20:30)
--- NOTE | 2023-09-28 13:42 | P.PN ---
Subjective Progress Note Date: 09/28/23 This is a pleasant 83-year-old male patient with a known history of bladder cancer, diabetes mellitus, 70 year chronic and ongoing tobacco dependence. He presented here on 09/24/2023 with complaints of severe right upper quadrant pain. He scan of the abdomen revealed air space consolidation in the right lower lobe. Diffuse hepatic metastasis correlate for primary malignancy. Mild wall thickening of the urinary bladder. We're consulted for the abnormality in the right lower lobe. He is seen today in consultation on the regular medical floor. He is currently sitting up in bed. Awake and alert in no acute distress. He he did undergo a liver biopsy this morning. He denies any shortness of breath, cough or congestion. No fever or chills. He is maintaining good O2 saturations in the 90s on room air. White count 7.4. Hemoglobin 12.7. Platelets 183. Sodium 136. Potassium 4.1 bicarb 23. BUN 10. Creatinine 1.0. Glucose 107. A ST 95. ALT 45. Pro-calcitonin 2.80. He is currently on Zosyn. The patient is seen today 09/27/2023 in follow-up on the regular medical floor. His been up ambulating in his room. He is maintaining good O2 saturations in the 90s on room air. He has normal saline at 50 MLS per hour. His pro- calcitonin was 2.80. Liver biopsy results still pending. Computed tomography scan of the chest revealed a large lobulated conglomerate mass in the right low er lobe suspicious for primary lung malignancy, possible metastasis. Numerous satellite nodules and separate small nodule superior segment of the right lower lobe consistent with metastasis. Conglomerate right hilar adenopathy and right subcarinal adenopathy consistent with metastasis. Blood culture revealed no growth. White count 10.3. Hemoglobin 13.2. Platelets 204. Sodium 138. Potassium 4.4. Bicarb 23. BUN 11. Creatinine 1.2. Glucose 89. He remains on Zosyn. Continued on bronchodilators. Heparin for DVT prophylaxis. The patient is seen today 09/28/2023 in follow-up on the regular medical floor. He is currently sitting up having breakfast. Awake and alert in no acute dist ress. Denies any worsening shortness of breath, cough or congestion. He is maintaining O2 saturations in the 90s on room air. Afebrile. Hemodynamically stable. MRI of the brain revealed no suspicious metastatic disease. Blood glucose 90. Liver biopsy pending. He remains on bronchodilators. Antibiotics in the form of Zosyn. Pain control with Toradol, Dilaudid, [place]. Heparin for DVT prophylaxis. Objective - Vital Signs Vital signs: Vital Signs Temp 99.2 F 09/28/23 11:40 Pulse 60 09/28/23 11:40 Resp 18 09/28/23 11:40 BP 136/67 09/28/23 11:40 Pulse Ox 96 09/28/23 11:40 FiO2 Intake & Output 09/27/23 09/28/23 09/28/23 18:59 06:59 18:59 Intake Total 1300 Balance 1300 Intake: Intake, IV Titration 700 Amount Piperacillin-Tazobactam 3 100 .375 gm In Sodium Chloride 0.9% 100 ml @ 25 mls/hr IVPB Q8H JOSE Rx#: [id number] Sodium Chloride 0.9% 1, 600 000 ml @ 50 mls/hr IV . Q20H JOSE Rx#:[id number] Oral 600 Other: Voiding Method Toilet # Voids 1 3 - Exam GENERAL EXAM: Alert, pleasant 83-year-old male, comfortable in no apparent distress. HEAD: Normocephalic. EYES: Normal reaction of pupils, equal size. NOSE: Clear with pink turbinates. THROAT: No erythema or exudates. NECK: No masses, no JVD. CHEST: No chest wall deformity. LUNGS: Equal air entry with no crackles, wheeze, rhonchi or dullness. On room air. CVS: S1 and S2 normal with no audible murmur, regular rhythm. ABDOMEN: Positive for right upper quadrant pain, normal bowel sounds, no guarding or rigidity. SPINE: No scoliosis or deformity SKIN: No rashes CENTRAL NERVOUS SYSTEM: No focal deficits, tone is normal in all 4 extremities. EXTREMITIES: There is no peripheral edema. No clubbing, no cyanosis. Peripheral pulses are intact. - Labs CBC & Chem 7: 09/27/23 05:34 09/27/23 05:34 Labs: Microbiology - Last 24 Hours (Table) 09/25/23 11:40 Blood Culture - Preliminary Blood Assessment and Plan Assessment: Right upper quadrant pain secondary to liver metastasis, status post biopsy 09/26/2023 Right lower lobe consolidation suspect pneumonia versus malignancy. Pro- calcitonin 2.80. Currently on Zosyn History of bladder cancer Chronic and ongoing tobacco dependence of 70 years Plan: The patient was seen and evaluated Labs and medications reviewed Antibiotics per ID services Awaiting liver biopsy results Outpatient PET scan Currently stable and on room air This patient was seen independently by the pulmonary nurse practitioner addressing pulmonary issues I have personally seen and examined the patient, performed the documentation and the assessment and plan as written. Number of minutes spent on the visit: 23.
--- NOTE | 2023-09-28 15:59 | P.PN ---
Subjective Progress Note Date: 09/27/23 Principal diagnosis: Reason for follow-up is abnormal chest x-ray and Question of pneumonia Patient is a 83-year-old male with a past medical history significant for bladder cancer history of diabetes mellitus and reflux patient presenting to the hospital for evaluation of right upper quadrant abdominal pain, patient did have a CT of abdominal pelvis with evidence of possible hepatic metastasis and there was a question of right lower lobe pneumonia. On today's evaluation that is 09/27/2023, the patient remains to be afebrile, the patient is breathing comfortably patient did have occasional cough not bring up any sputum patient denies having any nausea no vomiting abdominal pain is currently controlled no diarrhea. Patient white count is 7.34, creatinine is 1.2 procalcitonin is 2.80 Objective - Vital Signs Vital signs: Vital Signs Temp 98.7 F 09/27/23 12:00 Pulse 68 09/27/23 12:00 Resp 17 09/27/23 12:00 BP 120/60 09/27/23 12:00 Pulse Ox 96 09/27/23 12:00 FiO2 Intake & Output 09/26/23 09/27/23 09/27/23 18:59 06:59 18:59 Other: Voiding Method Toilet Toilet # Voids 1 1 - Exam GENERAL DESCRIPTION: An elderly male lying in bed in no distress RESPIRATORY SYSTEM: Unlabored breathing , decreased breath sounds at bases HEART: S1 S2 regular rate and rhythm , ABDOMEN: Soft , no tenderness EXTREMITIES: No edema feet - Labs CBC & Chem 7: 09/27/23 05:34 09/27/23 05:34 Labs: Abnormal Lab Results - Last 24 Hours (Table) 09/26/23 09/27/23 09/27/23 Range/Units 17:16 05:34 05:34 RBC 4.09 L (4.40-5.60) X 10*6/uL MCV 97.3 H (80.0-97.0) FL MCH 32.3 H (27.0-32.0) pg Anion Gap 12.70 H (4.00-12.00) mmol/L BUN/Creatinine Ratio 9.17 L (12.00-20.00) Ratio POC Glucose (mg/dL) 112 H (70-110) mg/dL AST 97 H (14-35) U/L Alkaline Phosphatase 166 H (41-126) U/L Total Protein 6.0 L (6.2-8.2) g/dL Albumin 3.7 L (3.8-4.9) g/dL 09/27/23 Range/Units 11:54 RBC (4.40-5.60) X 10*6/uL MCV (80.0-97.0) FL MCH (27.0-32.0) pg Anion Gap (4.00-12.00) mmol/L BUN/Creatinine Ratio (12.00-20.00) Ratio POC Glucose (mg/dL) 156 H (70-110) mg/dL AST (14-35) U/L Alkaline Phosphatase (41-126) U/L Total Protein (6.2-8.2) g/dL Albumin (3.8-4.9) g/dL Microbiology - Last 24 Hours (Table) 09/25/23 11:40 Blood Culture - Preliminary Blood Assessment and Plan (1) Right lower lobe pneumonia Current Visit: Yes Status: Acute Priority: High Code(s): J18.9 - P NEUMONIA, UNSPECIFIED ORGANISM SNOMED Code(s): 450958472 Plan: 1patient presented to hospital with right upper quadrant abdominal pain in this patient on did have history of bladder cancer and evidence of diffuse hepatic metastasis could be responsible for his symptomatology 2-patient also have evidence of consolidation on the CT with a question of possible atelectasis, patient did have elevated procalcitonin, component of Pneumonia not excluded 3--patient to continue with empiric Zosyn and monitor clinical course closely Dictation was produced using [employer] dictation software. please excuse any grammatical, word or spelling errors. Time with Patient: Less than 30
[2023-09-28] MEDS: SODIUM CHLORIDE 0.9% 1,000 ML IV SCH (16:06)
[2023-09-29] MEDS: HYDROmorphone 1 MG/ML 1 ML SYRINGE IVP PRN ×3 (00:33→10:22)
--- NOTE | 2023-09-29 01:43 | PN ---
PROGRESS NOTE DATE OF SERVICE: 09/28/2023 SUBJECTIVE: This 83-year-old gentleman was admitted with abdominal pain, also liver mets. The patient underwent a biopsy at this time. The patient complains of some pain, but otherwise normal, patient is afebrile. Brain MRI showed no suspicious metastatic disease. OBJECTIVE: VITAL SIGNS: Pulse is 71, blood pressure 140/70, and respirations 18. CHEST: Clear to auscultation. CARDIOVASCULAR: S1, S2 muffled. ABDOMEN: Soft. NERVOUS SYSTEM: No focal deficits. LABORATORY DATA: Reviewed. ASSESSMENT: 1. Abdominal pain, possibly secondary to liver METS. 2. Status post liver biopsy. 3. Bladder cancer history. 4. Possible right lung cancer with satellite nodules. 5. Possible right-sided right lower lobe pneumonia persistent with failure of outpatient treatment. 6. Aortic lymphadenopathy. 7. Diabetes mellitus, type 2. 8. GERD. 9. History of cholecystectomy. 10.History of nicotine dependence. 11.Full code. RECOMMENDATIONS: Recommended to continue current management, continue symptomatic treatment. Continue the pain management. The patient is afebrile. Repeat labs. Otherwise, await biopsy report. Closely follow with multiple consultants prognosis guarded for condition. MMODL / IJN: [id number] /
[2023-09-29] MEDS: PIPERACILLIN-TAZOBACTAM 3.375 GM in SODIUM CHLORIDE 0.9% 100 ML IVPB SCH ×3 (01:58→17:48)
[2023-09-29 04:21] LABS: Mycoplasma IgG Antibody (EIA) 3.26 INDEX (<=0.90); Mycoplasma IgM Antibody 0.99 INDEX (<=0.90)
[2023-09-29] MEDS: HEPARIN SODIUM,PORCINE 5,000 UNIT/ML 1 ML VIAL SQ SCH ×2 (08:17→20:33)
[2023-09-29] MEDS: DOCUSATE 100 MG CAP PO SCH ×2 (08:17→20:33)
[2023-09-29] MEDS: PANTOPRAZOLE 40 MG/10 ML VIAL IVP SCH ×2 (08:17→20:33)
[2023-09-29] MEDS: SODIUM CHLORIDE 0.9% 1,000 ML IV SCH (10:28)
[2023-09-29 11:05] LABS: Basophils # (A) 0.08 X 10*3/uL (0.00-0.10); Basophils % (A) 1.1 %; Eosinophils # (A) 0.28 X 10*3/uL (0.04-0.35); Eosinophils % (A) 3.9 %; HCT 38.4 % (39.6-50.0); HGB 12.9 g/dL (13.0-17.0); Lymphocytes # (A) 3.36 X 10*3/uL (0.90-5.00); Lymphocytes % (A) 46.5 %; MCH 32.2 pg (27.0-32.0); MCHC 33.6 g/dL (32.0-37.0); MCV 95.8 FL (80.0-97.0); Monocytes # (A) 0.54 X 10*3/uL (0.20-1.00); Monocytes % (A) 7.5 %; NRBC Per 100 WBC 0 X 10*3/uL (0.00-0.01); Neutrophils # (A) 2.95 X 10*3/uL (1.80-7.70); Neutrophils % (A) 40.7 %; Platelet Count 220 X 10*3/uL (140-440); RBC 4.01 X 10*6/uL (4.40-5.60); RDW 12.6 % (11.5-14.5); WBC 7.23 X 10*3/uL (4.50-10.00)
[2023-09-29 11:47] LABS: ALT 48 U/L (10-49); AST 99 U/L (14-35); Albumin 3.5 g/dL (3.8-4.9); Albumin/Globulin Ratio 1.52 Ratio (1.60-3.17); Alkaline Phosphatase 172 U/L (41-126); BUN/Creat Ratio 10.82 Ratio (12.00-20.00); Blood Urea Nitrogen 11.9 mg/dL (9.0-27.0); Calcium 8.6 mg/dL (8.7-10.3); Chloride 102 mmol/L (96-109); Globulin 2.3 g/dL (1.6-3.3); Glucose 108 mg/dL (70-110); Potassium 4.2 mmol/L (3.5-5.5); Sodium 137 mmol/L (135-145); Total Bilirubin 0.6 mg/dL (0.3-1.2); Total Protein 5.8 g/dL (6.2-8.2)
--- NOTE | 2023-09-29 12:24 | P.PN ---
Subjective Progress Note Date: 09/29/23 This is a pleasant 83-year-old male patient with a known history of bladder cancer, diabetes mellitus, 70 year chronic and ongoing tobacco dependence. He presented here on 09/24/2023 with complaints of severe right upper quadrant pain. He scan of the abdomen revealed air space consolidation in the right lower lobe. Diffuse hepatic metastasis correlate for primary malignancy. Mild wall thickening of the urinary bladder. We're consulted for the abnormality in the right lower lobe. He is seen today in consultation on the regular medical floor. He is currently sitting up in bed. Awake and alert in no acute distress. He he did undergo a liver biopsy this morning. He denies any shortness of breath, cough or congestion. No fever or chills. He is maintaining good O2 saturations in the 90s on room air. White count 7.4. Hemoglobin 12.7. Platelets 183. Sodium 136. Potassium 4.1 bicarb 23. BUN 10. Creatinine 1.0. Glucose 107. A ST 95. ALT 45. Pro-calcitonin 2.80. He is currently on Zosyn. The patient is seen today 09/27/2023 in follow-up on the regular medical floor. His been up ambulating in his room. He is maintaining good O2 saturations in the 90s on room air. He has normal saline at 50 MLS per hour. His pro- calcitonin was 2.80. Liver biopsy results still pending. Computed tomography scan of the chest revealed a large lobulated conglomerate mass in the right low er lobe suspicious for primary lung malignancy, possible metastasis. Numerous satellite nodules and separate small nodule superior segment of the right lower lobe consistent with metastasis. Conglomerate right hilar adenopathy and right subcarinal adenopathy consistent with metastasis. Blood culture revealed no growth. White count 10.3. Hemoglobin 13.2. Platelets 204. Sodium 138. Potassium 4.4. Bicarb 23. BUN 11. Creatinine 1.2. Glucose 89. He remains on Zosyn. Continued on bronchodilators. Heparin for DVT prophylaxis. The patient is seen today 09/28/2023 in follow-up on the regular medical floor. He is currently sitting up having breakfast. Awake and alert in no acute dist ress. Denies any worsening shortness of breath, cough or congestion. He is maintaining O2 saturations in the 90s on room air. Afebrile. Hemodynamically stable. MRI of the brain revealed no suspicious metastatic disease. Blood glucose 90. Liver biopsy pending. He remains on bronchodilators. Antibiotics in the form of Zosyn. Pain control with Toradol, Dilaudid, [place]. Heparin for DVT prophylaxis. The patient is seen today 09/29/2023 in follow-up on the regular medical floor. He is currently resting comfortably in bed. Awake and alert in no acute distress. Maintaining O2 saturations in the 90s on room air. He has normal saline at 50 MLS per hour. He is continued on Zosyn. Blood culture revealed no growth. Sputum culture revealed no growth. White count 7.2. Hemoglobin 12.9. Platelets 220. Sodium 1037. Potassium 4.2. Bicarb 25. BUN 12. Creatinine 1.1. Glucose 108. AST 99. ALT 48. Alk phos 172. He remains on heparin for DVT prophylaxis. 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 Objective - Vital Signs Vital signs: Vital Signs Temp 97.5 F L 09/29/23 07:21 Pulse 55 L 09/29/23 07:21 Resp 18 09/29/23 07:21 BP 139/74 09/29/23 07:21 Pulse Ox 93 L 09/29/23 07:21 FiO2 Intake & Output 09/28/23 09/29/23 09/29/23 18:59 06:59 18:59 Intake Total 800 1300 Balance 800 1300 Intake: Intake, IV Titration 800 800 Amount Piperacillin-Tazobactam 3 200 200 .375 gm In Sodium Chloride 0.9% 100 ml @ 25 mls/hr IVPB Q8H JOSE Rx#: [id number] Sodium Chloride 0.9% 1, 600 600 000 ml @ 50 mls/hr IV . Q20H JOSE Rx#:[id number] Oral 500 Other: Voiding Method Toilet # Voids 3 - Exam GENERAL EXAM: Alert, pleasant 83-year-old male, on room air, resting in bed, comfortable in no apparent distress. HEAD: Normocephalic. EYES: Normal reaction of pupils, equal size. NOSE: Clear with pink turbinates. THROAT: No erythema or exudates. NECK: No masses, no JVD. CHEST: No chest wall deformity. LUNGS: Equal air entry with no crackles, wheeze, rhonchi or dullness. On room air. CVS: S1 and S2 normal with no audible murmur, regular rhythm. ABDOMEN: Positive for right upper quadrant pain, normal bowel sounds, no guarding or rigidity. SPINE: No scoliosis or deformity SKIN: No rashes CENTRAL NERVOUS SYSTEM: No focal deficits, tone is normal in all 4 extremities. EXTREMITIES: There is no peripheral edema. No clubbing, no cyanosis. Peripheral pulses are intact. - Labs CBC & Chem 7: 09/29/23 05:50 09/29/23 05:50 Labs: Abnormal Lab Results - Last 24 Hours (Table) 09/25/23 09/29/23 09/29/23 Range/Units 11:35 05:50 05:50 RBC 4.01 L (4.40-5.60) X 10*6/uL Hgb 12.9 L (13.0-17.0) g/dL Hct 38.4 L (39.6-50.0) % MCH 32.2 H (27.0-32.0) pg BUN/Creatinine Ratio 10.82 L (12.00-20.00) Ratio Calcium 8.6 L (8.7-10.3) mg/dL AST 99 H (14-35) U/L Alkaline Phosphatase 172 H (41-126) U/L Total Protein 5.8 L (6.2-8.2) g/dL Albumin 3.5 L (3.8-4.9) g/dL Albumin/Globulin Ratio 1.52 L (1.60-3.17) Ratio Mycoplasma pneumon IgG 3.26 H (<=0.90) INDEX Mycoplasma pneumon IgM 0.99 H (<=0.90) INDEX Microbiology - Last 24 Hours (Table) 09/27/23 14:55 Gram Stain - Preliminary Sputum 09/25/23 11:40 Blood Culture - Preliminary Blood Assessment and Plan Assessment: Right upper quadrant pain secondary to liver metastasis, status post liver biopsy 09/26/2023 and positive for metastatic small cell carcinoma, 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 Pro- calcitonin 2.80. Currently on Zosyn History of bladder cancer Chronic and ongoing tobacco dependence of 70 years Plan: The patient was seen and evaluated Pathology report, labs and medications reviewed Currently stable and on room air Medical oncology following, plan is pending This patient was seen independently by the pulmonary nurse practitioner addressing pulmonary issues I have personally seen and examined the patient, performed the documentation and the assessment and plan as written. Number of minutes spent on the visit: 22.
[2023-09-29] MEDS ORDERED: HYDROmorphone 0.5 MG/0.5 ML SYRINGE IVP PRN (13:59)
--- NOTE | 2023-09-29 15:19 | P.PN ---
Subjective Progress Note Date: 09/29/23 At today's visit patient is resting comfortably in bed. Reporting improvement in abdominal pain. Denies n/v. S/p liver biopsy, path pending Objective - Vital Signs Vital signs: Vital Signs Temp 98.7 F 09/29/23 11:55 Pulse 70 09/29/23 11:55 Resp 18 09/29/23 11:55 BP 133/77 09/29/23 11:55 Pulse Ox 94 L 09/29/23 11:55 FiO2 Intake & Output 09/28/23 09/29/23 09/29/23 18:59 06:59 18:59 Intake Total 800 1300 Balance 800 1300 Intake: Intake, IV Titration 800 800 Amount Piperacillin-Tazobactam 3 200 200 .375 gm In Sodium Chloride 0.9% 100 ml @ 25 mls/hr IVPB Q8H JOSE Rx#: [id number] Sodium Chloride 0.9% 1, 600 600 000 ml @ 50 mls/hr IV . Q20H JOSE Rx#:[id number] Oral 500 Other: Voiding Method Toilet # Voids 3 - Constitutional General appearance: Present: average body habitus, no acute distress - EENT Eyes: Present: anicteric sclerae, EOMI ENT: Present: hearing grossly normal - Respiratory Details: breathing even and unlabored - Cardiovascular Details: skin warm and dry - Gastrointestinal General gastrointestinal: Present: soft. Absent: tenderness - Integumentary Integumentary: Absent: cyanotic - Musculoskeletal Musculoskeletal: Present: strength equal bilaterally - Psychiatric Psychiatric: Present: A&O x's 3 - Labs CBC & Chem 7: 09/29/23 05:50 09/29/23 05:50 Labs: Abnormal Lab Results - Last 24 Hours (Table) 09/25/23 09/29/23 09/29/23 Range/Units 11:35 05:50 05:50 RBC 4.01 L (4.40-5.60) X 10*6/uL Hgb 12.9 L (13.0-17.0) g/dL Hct 38.4 L (39.6-50.0) % MCH 32.2 H (27.0-32.0) pg BUN/Creatinine Ratio 10.82 L (12.00-20.00) Ratio Calcium 8.6 L (8.7-10.3) mg/dL AST 99 H (14-35) U/L Alkaline Phosphatase 172 H (41-126) U/L Total Protein 5.8 L (6.2-8.2) g/dL Albumin 3.5 L (3.8-4.9) g/dL Albumin/Globulin Ratio 1.52 L (1.60-3.17) Ratio Mycoplasma pneumon IgG 3.26 H (<=0.90) INDEX Mycoplasma pneumon IgM 0.99 H (<=0.90) INDEX Microbiology - Last 24 Hours (Table) 09/27/23 14:55 Gram Stain - Preliminary Sputum 09/25/23 11:40 Blood Culture - Preliminary Blood Assessment and Plan (1) RUQ abdominal pain Current Visit: Yes Status: Acute Priority: High Code(s): R10.11 - RIGHT UPPER QUADRANT PAIN SNOMED Code(s): 260548040 (2) Right lower lobe pneumonia Current Visit: Yes Status: Acute Priority: High Code(s): J18.9 - PNEUMONIA, UNSPECIFIED ORGANISM SNOMED Code(s): 534262065 (3) Lung mass Current Visit: Yes Status: Acute Priority: High Code(s): R91.8 - OTHER NONSPECIFIC ABNORMAL FINDING OF LUNG FIELD SNOMED Code(s): 795681386 (4) Liver lesion Current Visit: Yes Status: Acute Priority: High Code(s): K76.9 - LIVER DISEASE, UNSPECIFIED SNOMED Code(s): 724080368 Plan: Abdominal pain: -Presented to the emergency room with complaints of abdominal pain for approx 6 weeks that has worsened over the last 3 weeks with associated nausea. Also reporting intermittent constipation and diarrhea over the last 6 months. Reports 10 pound weight loss in the last 3 months. Last colonoscopy was 10 years ago. Significant history of bladder cancer and was treated by urology and underwent TURBT. Patient did not receive systemic treatment. Last cystoscopy was approx 5 years ago. -Upon admission CT abdomen and pelvis revealed airspace consolidation in the right lower lobe consistent with pneumonia. Diffuse hepatic metastases. Mild wall thickening of urinary bladder. Cholecystectomy. Diverticulitis without acute diverticulitis. No small bowel obstruction or no free intaperitoneal air. Bilirubin 1.1 Transaminitis noted. Elevated amylase at 180 and Lipase 611. -Discussed scan findings and concerns for malignancy with patient and family. They verbalized understanding and were agreeable to proceed with further testing. -S/p liver biopsy, path pending -CT chest revealed large lobulated conglomerate mass in the right lower lobe. Measuring 5.3 x 5.1 cm. Numerous satellite nodules surrounding mass. Small nodule in the superior segment of the right lower lobe. Conglomerate right hilar adenopathy and right subcarinal adenopathy. Mildly enlarged right posterior paratracheal node near the thoracic inlet. Borderline prominent lymph node distal esophagus. No evidence of left lung nodule/mass or left hilar adenopathy. Results were discussed with patient and daughter. Discussed concern that this may be a lung primary based on size of mass. Will await pending pathology MRI brain negative for metastatic disease. -Will transition pt to oral pain med regimen. Will continue to follow to ensure adequate pain control for discharge Pneumonia: -Chest x-ray revealed airspace consolidation in the right lower lobe. Patient started on IV antibiotics. -Viral serology negative -ID and pulm following Dr attests: I have seen and examined pt, performed H&P, developed impression and plan of care. Discussed with dictator. Agree with documentation, dictated as a scribe
--- NOTE | 2023-09-29 15:23 | P.PN ---
Subjective Progress Note Date: 09/28/23 Principal diagnosis: Reason for follow-up is abnormal chest x-ray and Question of pneumonia Patient is a 83-year-old male with a past medical history significant for bladder cancer history of diabetes mellitus and reflux patient presenting to the hospital for evaluation of right upper quadrant abdominal pain, patient did have a CT of abdominal pelvis with evidence of possible hepatic metastasis and there was a question of right lower lobe pneumonia. On today's evaluation that is 09/28/2023, the patient continues to be afebrile, the patient is breathing comfortably on room air without need for supplemental oxygen, patient did have occasional cough not bring up any sputum patient denies having any nausea no vomiting abdominal pain is currently controlled no diar christie. Patient white count is 7.34, creatinine is 1.2 as of 09/27/2023, procalcitonin is 2.80 Objective - Vital Signs Vital signs: Vital Signs Temp 99.2 F 09/28/23 11:40 Pulse 60 09/28/23 11:40 Resp 18 09/28/23 11:40 BP 136/67 09/28/23 11:40 Pulse Ox 96 09/28/23 11:40 FiO2 Intake & Output 09/27/23 09/28/23 09/28/23 18:59 06:59 18:59 Intake Total 1300 Balance 1300 Intake: Intake, IV Titration 700 Amount Piperacillin-Tazobactam 3 100 .375 gm In Sodium Chloride 0.9% 100 ml @ 25 mls/hr IVPB Q8H JOSE Rx#: [id number] Sodium Chloride 0.9% 1, 600 000 ml @ 50 mls/hr IV . Q20H JOSE Rx#:[id number] Oral 600 Other: Voiding Method Toilet # Voids 1 3 - Exam GENERAL DESCRIPTION: An elderly male lying in bed in no distress RESPIRATORY SYSTEM: Unlabored breathing , decreased breath sounds at bases HEART: S1 S2 regular rate and rhythm , ABDOMEN: Soft , no tenderness EXTREMITIES: No edema feet - Labs CBC & Chem 7: 09/29/23 05:50 09/29/23 05:50 Labs: Microbiology - Last 24 Hours (Table) 09/25/23 11:40 Blood Culture - Preliminary Blood Assessment and Plan (1) Right lower lobe pneumonia Current Visit: Yes Status: Acute Priority: High Code(s): J18.9 - PNEUMONIA, UNSPECIFIED ORGANISM SNOMED Code(s): 509706138 Plan: 1patient presented to hospital with right upper quadrant abdominal pain in this patient on did have history of bladder cancer and evidence of diffuse hepatic metastasis could be responsible for his symptomatology 2-patient also have evidence of consolidation on the CT with a question of possible atelectasis, patient did have elevated procalcitonin, component of P[place] not excluded 3--patient remains to be afebrile white count is normal, patient to continue wit h empiric Zosyn and monitor clinical course closely Dictation was produced using [employer] dictation software. please excuse any grammatical, word or spelling errors. Time with Patient: Less than 30
--- NOTE | 2023-09-29 15:25 | P.PN ---
Subjective Progress Note Date: 09/29/23 Principal diagnosis: Reason for follow-up is abnormal chest x-ray and Question of pneumonia Patient is a 83-year-old male with a past medical history significant for bladder cancer history of diabetes mellitus and reflux patient presenting to the hospital for evaluation of right upper quadrant abdominal pain, patient did have a CT of abdominal pelvis with evidence of possible hepatic metastasis and there was a question of right lower lobe pneumonia. On today's evaluation that is 09/29/2023, the patient denies any fever or chills, the patient is breathing comfortably on room air, patient right-sided chest and abdominal pain has decreased in intensity did have minor cough no sputum production no vomiting and no diarrhea Patient white count is 7.23, creatinine is 1.1, procalcitonin is 2.80 Objective - Vital Signs Vital signs: Vital Signs Temp 98.7 F 09/29/23 11:55 Pulse 70 09/29/23 11:55 Resp 18 09/29/23 11:55 BP 133/77 09/29/23 11:55 Pulse Ox 94 L 09/29/23 11:55 FiO2 Intake & Output 09/28/23 09/29/23 09/29/23 18:59 06:59 18:59 Intake Total 800 1300 Balance 800 1300 Intake: Intake, IV Titration 800 800 Amount Piperacillin-Tazobactam 3 200 200 .375 gm In Sodium Chloride 0.9% 100 ml @ 25 mls/hr IVPB Q8H [facility] Rx#: [id number] Sodium Chloride 0.9% 1, 600 600 000 ml @ 50 mls/hr IV . Q20H [facility] Rx#:[id number] Oral 500 Other: Voiding Method Toilet # Voids 3 - Exam GENERAL DESCRIPTION: An elderly male lying in bed in no distress RESPIRATORY SYSTEM: Unlabored breathing , decreased breath sounds at bases HEART: S1 S2 regular rate and rhythm , ABDOMEN: Soft , no tenderness EXTREMITIES: No edema feet - Labs CBC & Chem 7: 09/29/23 05:50 09/29/23 05:50 Labs: Abnormal Lab Results - Last 24 Hours (Table) 09/25/23 09/29/23 09/29/23 Range/Units 11:35 05:50 05:50 RBC 4.01 L (4.40-5.60) X 10*6/uL Hgb 12.9 L (13.0-17.0) g/dL Hct 38.4 L (39.6-50.0) % MCH 32.2 H (27.0-32.0) pg BUN/Creatinine Ratio 10.82 L (12.00-20.00) Ratio Calcium 8.6 L (8.7-10.3) mg/dL AST 99 H (14-35) U/L Alkaline Phosphatase 172 H (41-126) U/L Total Protein 5.8 L (6.2-8.2) g/dL Albumin 3.5 L (3.8-4.9) g/dL Albumin/Globulin Ratio 1.52 L (1.60-3.17) Ratio Mycoplasma pneumon IgG 3.26 H (<=0.90) INDEX Mycoplasma pneumon IgM 0.99 H (<=0.90) INDEX Microbiology - Last 24 Hours (Table) 09/27/23 14:55 Gram Stain - Preliminary Sputum 09/25/23 11:40 Blood Culture - Preliminary Blood Assessment and Plan (1) Right lower lobe pneumonia Current Visit: Yes Status: Acute Priority: High Code(s): J18.9 - P NEUMONIA, UNSPECIFIED ORGANISM SNOMED Code(s): 781727031 Plan: 1patient presented to hospital with right upper quadrant abdominal pain in this patient on did have history of bladder cancer and evidence of diffuse hepatic metastasis could be responsible for his symptomatology 2-patient also have evidence of consolidation on the CT with a question of possible atelectasis, patient did have elevated procalcitonin, component of Pneumonia not excluded 3--patient is afebrile white count has been normal, blood respiratory culture currently pending 4-patient to continue with empiric Zosyn and monitor clinical course closely Dictation was produced using [employer] dictation software. please excuse any grammatical, word or spelling errors. Time with Patient: Less than 30
[2023-09-29] MEDS: MAGNESIUM HYDROXIDE 2,400 MG/30 ML CUP PO PRN (17:48)
--- NOTE | 2023-09-30 00:13 | PN ---
PROGRESS NOTE DATE OF SERVICE: 09/29/2023 SUBJECTIVE: This 83-year-old gentleman admitted with abdominal pain, also had liver mets. The patient underwent a liver biopsy at this time. No chest pain, no palpitations, no fever. The patient is still complaining of pain. OBJECTIVE: VITAL SIGNS: Pulse 70, blood pressure 137/70, respirations 18. CHEST: Clear to auscultation. CARDIOVASCULAR: S1, S2. ABDOMEN: Soft. NERVOUS SYSTEM: No focal deficits. LABORATORY DATA: Noted, otherwise metastatic small-cell carcinoma. ASSESSMENT: 1. Abdominal pain, possibly liver secondary to mets, metastatic small-cell carcinoma. 2. Status post liver biopsy. 3. Bladder cancer history. 4. Possible right-sided lung cancer with satellite nodules. 5. Bladder cancer history. 6. History of right-sided right lower pneumonia, possibly persistent with failure of outpatient treatment, possible postobstructive gram-negative. 7. Aortic lymphadenopathy. 8. Diabetes mellitus, type 2. 9. GERD. 10.History of cholecystectomy. 11.History of nicotine dependence. RECOMMENDATIONS: Recommended to continue current management, continue symptomatic treatment. Closely follow with Hematology/Oncology and follow closely with Pulmonary. Continue with current medications including antibiotics. Guarded prognosis. Further recommendations to follow. I would recommend repeat labs also. MMODL / IJN: [id number] /
[2023-09-30] MEDS: PIPERACILLIN-TAZOBACTAM 3.375 GM in SODIUM CHLORIDE 0.9% 100 ML IVPB SCH ×3 (01:58→18:22)
[2023-09-30] MEDS: SODIUM CHLORIDE 0.9% 1,000 ML IV SCH ×2 (04:10→22:36)
[2023-09-30 07:46] LABS: Basophils # (A) 0.1 k/uL (0-0.2); Basophils % (A) 1 %; Eosinophils # (A) 0.2 k/uL (0-0.7); Eosinophils % (A) 3 %; HCT 39.5 % (39.0-53.0); HGB 13.3 gm/dL (13.0-17.5); Lymphocytes # (A) 4.1 k/uL (1.0-4.8); Lymphocytes % (A) 47 %; MCH 32.6 pg (25.0-35.0); MCHC 33.6 g/dL (31.0-37.0); Mean Platelet Volume 7.6; Monocytes # (A) 0.5 k/uL (0-1.0); Monocytes % (A) 5 %; Neutrophils # (A) 3.6 k/uL (1.3-7.7); Neutrophils % (A) 42 %; Platelet Count 215 k/uL (150-450); RBC 4.08 m/uL (4.30-5.90); RDW 12.9 % (11.5-15.5); WBC 8.7 k/uL (3.8-10.6)
[2023-09-30 08:11] LABS: African American GFR (CKD) 84 (>60 ml/min/1.73 sqM); Anion Gap 9 mmol/L; Blood Urea Nitrogen 10 mg/dL (9-20); Calcium 9.1 mg/dL (8.4-10.2); Carbon Dioxide 23 mmol/L (22-30); Chloride 105 mmol/L (98-107); Glucose 99 mg/dL (74-99); Non-African American GFR(CKD) 73 (>60 ml/min/1.73 sqM); Potassium 4.2 mmol/L (3.5-5.1); Sodium 137 mmol/L (137-145)
--- NOTE | 2023-09-30 08:53 | P.PN ---
Subjective Progress Note Date: 09/30/23 This is a pleasant 83-year-old male patient with a known history of bladder cancer, diabetes mellitus, 70 year chronic and ongoing tobacco dependence. He presented here on 09/24/2023 with complaints of severe right upper quadrant pain. He scan of the abdomen revealed air space consolidation in the right lower lobe. Diffuse hepatic metastasis correlate for primary malignancy. Mild wall thickening of the urinary bladder. We're consulted for the abnormality in the right lower lobe. He is seen today in consultation on the regular medical floor. He is currently sitting up in bed. Awake and alert in no acute distress. He he did undergo a liver biopsy this morning. He denies any shortness of breath, cough or congestion. No fever or chills. He is maintaining good O2 saturations in the 90s on room air. White count 7.4. Hemoglobin 12.7. Platelets 183. Sodium 136. Potassium 4.1 bicarb 23. BUN 10. Creatinine 1.0. Glucose 107. A ST 95. ALT 45. Pro-calcitonin 2.80. He is currently on Zosyn. The patient is seen today 09/27/2023 in follow-up on the regular medical floor. His been up ambulating in his room. He is maintaining good O2 saturations in the 90s on room air. He has normal saline at 50 MLS per hour. His pro- calcitonin was 2.80. Liver biopsy results still pending. Computed tomography scan of the chest revealed a large lobulated conglomerate mass in the right low er lobe suspicious for primary lung malignancy, possible metastasis. Numerous satellite nodules and separate small nodule superior segment of the right lower lobe consistent with metastasis. Conglomerate right hilar adenopathy and right subcarinal adenopathy consistent with metastasis. Blood culture revealed no growth. White count 10.3. Hemoglobin 13.2. Platelets 204. Sodium 138. Potassium 4.4. Bicarb 23. BUN 11. Creatinine 1.2. Glucose 89. He remains on Zosyn. Continued on bronchodilators. Heparin for DVT prophylaxis. The patient is seen today 09/28/2023 in follow-up on the regular medical floor. He is currently sitting up having breakfast. Awake and alert in no acute dist ress. Denies any worsening shortness of breath, cough or congestion. He is maintaining O2 saturations in the 90s on room air. Afebrile. Hemodynamically stable. MRI of the brain revealed no suspicious metastatic disease. Blood glucose 90. Liver biopsy pending. He remains on bronchodilators. Antibiotics in the form of Zosyn. Pain control with Toradol, Dilaudid, [place]. Heparin for DVT prophylaxis. The patient is seen today 09/29/2023 in follow-up on the regular medical floor. He is currently resting comfortably in bed. Awake and alert in no acute distress. Maintaining O2 saturations in the 90s on room air. He has normal saline at 50 MLS per hour. He is continued on Zosyn. Blood culture revealed no growth. Sputum culture revealed no growth. White count 7.2. Hemoglobin 12.9. Platelets 220. Sodium 1037. Potassium 4.2. Bicarb 25. BUN 12. Creatinine 1.1. Glucose 108. AST 99. ALT 48. Alk phos 172. He remains on heparin for DVT prophylaxis. 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 The patient is seen today 09/30/2023 in follow-up on the regular medical floor. He is currently up ambulating in his room. Denies any shortness of breath, cough or congestion. No hemoptysis. He is maintaining good O2 saturations in the 90s on room air. He remains on bronchodilators. Remains on Zosyn. Remains on heparin for DVT prophylaxis. Count 8.7. Hemoglobin 13.3. Platelets 215. Sodium 137. Potassium 4.2. Bicarb 23. BUN 10. Creatinine 0.98. Glucose 99. He has been notified of his diagnosis of metastatic small cell carcinoma. Objective - Vital Signs Vital signs: Vital Signs Temp 98 F 09/30/23 07:58 Pulse 59 L 09/30/23 07:58 Resp 18 09/30/23 07:58 BP 127/65 09/30/23 07:58 Pulse Ox 93 L 09/30/23 07:58 FiO2 Intake & Output 09/29/23 09/30/23 09/30/23 18:59 06:59 18:59 Intake Total 800 1300 Balance 800 1300 Intake: Intake, IV Titration 800 700 Amount Piperacillin-Tazobactam 3 200 100 .375 gm In Sodium Chloride 0.9% 100 ml @ 25 mls/hr IVPB Q8H [facility] Rx#: [id number] Sodium Chloride 0.9% 1, 600 600 000 ml @ 50 mls/hr IV . Q20H [facility] Rx#:[id number] Oral 600 Other: Voiding Method Toilet # Voids 2 # Bowel Movements 2 - Exam GENERAL EXAM: Alert, pleasant 83-year-old male, on room air, ambulating in his room, in no apparent distress. HEAD: Normocephalic. EYES: Normal reaction of pupils, equal size. NOSE: Clear with pink turbinates. THROAT: No erythema or exudates. NECK: No masses, no JVD. CHEST: No chest wall deformity. LUNGS: Equal air entry with no crackles, wheeze, rhonchi or dullness. On room air. CVS: S1 and S2 normal with no audible murmur, regular rhythm. ABDOMEN: Positive for right upper quadrant pain, normal bowel sounds, no guardi ng or rigidity. SPINE: No scoliosis or deformity SKIN: No rashes CENTRAL NERVOUS SYSTEM: No focal deficits, tone is normal in all 4 extremities. EXTREMITIES: There is no peripheral edema. No clubbing, no cyanosis. Peripheral pulses are intact. - Labs CBC & Chem 7: 09/30/23 06:50 09/30/23 06:50 Labs: Abnormal Lab Results - Last 24 Hours (Table) 09/29/23 09/29/23 09/30/23 Range/Units 05:50 05:50 06:50 RBC 4.01 L 4.08 L (4.40-5.60) X 10*6/uL Hgb 12.9 L (13.0-17.0) g/dL Hct 38.4 L (39.6-50.0) % MCH 32.2 H (27.0-32.0) pg BUN/Creatinine Ratio 10.82 L (12.00-20.00) Ratio Calcium 8.6 L (8.7-10.3) mg/dL AST 99 H (14-35) U/L Alkaline Phosphatase 172 H (41-126) U/L Total Protein 5.8 L (6.2-8.2) g/dL Albumin 3.5 L (3.8-4.9) g/dL Albumin/Globulin Ratio 1.52 L (1.60-3.17) Ratio Microbiology - Last 24 Hours (Table) 09/27/23 14:55 Gram Stain - Preliminary Sputum Assessment and Plan Assessment: Right upper quadrant pain secondary to liver metastasis, status post liver biopsy 09/26/2023 and positive for metastatic small cell carcinoma, 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 Pro- calcitonin 2.80. Currently on Zosyn History of bladder cancer Chronic and ongoing tobacco dependence of 70 years Plan: The patient was seen and evaluated Labs and medications reviewed Patient and his son who is at the bedside are aware of his diagnosis Awaiting plans from oncology Currently stable and on room air This patient was seen independently by the pulmonary nurse practitioner addressing pulmonary issues I have personally seen and examined the patient, performed the documentation and the assessment and plan as written. Number of minutes spent on the visit: 22.
[2023-09-30] MEDS: DOCUSATE 100 MG CAP PO SCH ×2 (09:07→19:53)
[2023-09-30] MEDS: PANTOPRAZOLE 40 MG/10 ML VIAL IVP SCH ×2 (09:08→19:54)
[2023-09-30] MEDS: HEPARIN SODIUM,PORCINE 5,000 UNIT/ML 1 ML VIAL SQ SCH ×2 (09:08→19:55)
--- NOTE | 2023-09-30 12:25 | P.PN ---
Subjective Progress Note Date: 09/30/23 Principal diagnosis: Reason for follow-up is abnormal chest x-ray and Question of pneumonia Patient is a 83-year-old male with a past medical history significant for bladder cancer history of diabetes mellitus and reflux patient presenting to the hospital for evaluation of right upper quadrant abdominal pain, patient did have a CT of abdominal pelvis with evidence of possible hepatic metastasis and there was a question of right lower lobe pneumonia. On today's evaluation that is 09/30/2023, the patient remains to be afebrile, the patient is breathing comfortably on room air however complaining of some shortness of breath today, the patient right-sided chest and abdominal pain has decreased in intensity denies any worsening cough or sputum production no abdominal pain or diarrhea Patient white count is 8.7, creatinine is 0.98, procalcitonin is 2.80, cultures currently pending Objective - Vital Signs Vital signs: Vital Signs Temp 98 F 09/30/23 07:58 Pulse 59 L 09/30/23 07:58 Resp 18 09/30/23 07:58 BP 127/65 09/30/23 07:58 Pulse Ox 93 L 09/30/23 07:58 FiO2 Intake & Output 09/29/23 09/30/23 09/30/23 18:59 06:59 18:59 Intake Total 800 1300 Balance 800 1300 Intake: Intake, IV Titration 800 700 Amount Piperacillin-Tazobactam 3 200 100 .375 gm In Sodium Chloride 0.9% 100 ml @ 25 mls/hr IVPB Q8H [facility] Rx#: [id number] Sodium Chloride 0.9% 1, 600 600 000 ml @ 50 mls/hr IV . Q20H [facility] Rx#:[id number] Oral 600 Other: Voiding Method Toilet Toilet # Voids 2 # Bowel Movements 2 - Exam GENERAL DESCRIPTION: An elderly male lying in bed in no distress RESPIRATORY SYSTEM: Unlabored breathing , decreased breath sounds at bases HEART: S1 S2 regular rate and rhythm , ABDOMEN: Soft , no tenderness EXTREMITIES: No edema feet - Labs CBC & Chem 7: 09/30/23 06:50 09/30/23 06:50 Labs: Abnormal Lab Results - Last 24 Hours (Table) 09/30/23 Range/Units 06:50 RBC 4.08 L (4.30-5.90) m/uL Microbiology - Last 24 Hours (Table) 09/27/23 14:55 Gram Stain - Preliminary Sputum Assessment and Plan (1) Right lower lobe pneumonia Current Visit: Yes Status: Acute Priority: High Code(s): J18.9 - PNEUMONIA, UNSPECIFIED ORGANISM SNOMED Code(s): 424172910 Plan: 1patient presented to hospital with right upper quadrant abdominal pain in this patient on did have history of bladder cancer and evidence of diffuse hepatic metastasis could be responsible for his symptomatology 2-patient also have evidence of consolidation on the CT with a question of possible atelectasis, patient did have elevated procalcitonin, component of Pneumonia not excluded 3--patient is afebrile white count has been normal, blood and sputum culture currently pending 4-patient to continue with empiric Zosyn we will add incentive spirometry Dictation was produced using [employer] dictation software. please excuse any grammatical, word or spelling errors. Time with Patient: Less than 30
[2023-09-30] MEDS: MAGNESIUM HYDROXIDE 2,400 MG/30 ML CUP PO PRN (18:28)
--- NOTE | 2023-09-30 21:41 | PN ---
PROGRESS NOTE DATE OF SERVICE: 09/30/2023 SUBJECTIVE: This 83-year-old gentleman was admitted with abdominal pain with possible liver metastasis, positive for small cell carcinoma, possible lung primary. No chest pain. No palpitation. Oncology evaluation in progress. OBJECTIVE: VITAL SIGNS: Pulse is 59, blood pressure 126/75, respirations 18. CHEST: Few scattered rhonchi. ABDOMEN: Soft, obese. LABORATORY DATA: Reviewed. ASSESSMENT: 1. Right upper quadrant abdominal pain possibly from metastatic liver disease, metastasis from small cell carcinoma. 2. Status post liver biopsy. 3. Bladder cancer history. 4. Possible right-sided lung cancer with satellite nodules. 5. History of right lower lobe pneumonia possibly with failure of outpatient treatment, possible postobstructive and gram-negative. 6. Aortic lymphadenopathy. 7. Diabetes mellitus, type 2. 8. Gastroesophageal reflux disease. 9. History of cholecystectomy. 10.History of nicotine dependence. RECOMMENDATIONS: Recommended to continue current management, continue symptomatic treatment. Otherwise, at this time, I recommend antibiotics. Continue the rest of the medications. I await oncology input. I would recommend to repeat labs to ensure stability. Prognosis is guarded. Further recommendations to follow. MMODL / IJN: [id number] /
--- NOTE | 2023-10-01 00:52 | P.PN ---
Subjective Progress Note Date: 09/30/23 the patient was seen today with his son and daughter. At time of exam he was sitting comfortably in his chair. He reported reasonable pain control. Objective - Vital Signs Vital signs: Vital Signs Temp 98.5 F 09/30/23 19:47 Pulse 51 L 09/30/23 19:47 Resp 18 09/30/23 20:00 BP 126/72 09/30/23 19:47 Pulse Ox 96 09/30/23 19:47 FiO2 Intake & Output 09/30/23 09/30/23 10/01/23 06:59 18:59 06:59 Intake Total 1300 540 Balance 1300 540 Intake: Intake, IV Titration 700 Amount Piperacillin-Tazobactam 3 100 .375 gm In Sodium Chloride 0.9% 100 ml @ 25 mls/hr IVPB Q8H [facility] Rx#: [id number] Sodium Chloride 0.9% 1, 600 000 ml @ 50 mls/hr IV . Q20H [facility] Rx#:[id number] Oral 600 540 Other: Voiding Method Toilet Toilet Toilet # Voids 2 2 # Bowel Movements 2 - Constitutional General appearance: Present: no acute distress - EENT Eyes: Present: EOMI ENT: Present: hearing grossly normal, normal oropharynx - Respiratory Respiratory: bilateral: CTA - Cardiovascular Rhythm: regular Heart sounds: normal: S1, S2 - Gastrointestinal General gastrointestinal: Present: soft Localized gastrointestinal: guarding: RUQ - Integumentary Integumentary: Present: normal - Neurologic Neurologic: Present: CNII-XII intact - Musculoskeletal Musculoskeletal: Present: generalized weakness, strength equal bilaterally - Psychiatric Psychiatric: Present: A&O x's 3 - Labs CBC & Chem 7: 09/30/23 06:50 09/30/23 06:50 Labs: Abnormal Lab Results - Last 24 Hours (Table) 09/30/23 Range/Units 06:50 RBC 4.08 L (4.30-5.90) m/uL Microbiology - Last 24 Hours (Table) 09/25/23 11:40 Blood Culture - Final Blood 09/27/23 14:55 Gram Stain - Final Sputum Sputum Culture - Final Assessment and Plan (1) Small cell lung cancer Narrative/Plan: the patient pathology has come back as small cell cancer. The pathology and clinical picture is consistent with lung primary, with metastatic disease - The pathology, staging implications were discussed in detail with the patient and his family. They were advised that his cancer would not be considered curable, and the objective of treatment would be prolongation of life and palliation of symptoms. We discussed prognosis with and without treatment. Standard treatment regimen especially in the first line, of [employer]-16, carboplatin and immunotherapy were discussed, including logistics and possible side effects. - From the medical standpoint, the patient is considered an acceptable risk to attempt active treatment. - Then multiple questions that were answered in detail, including about treatment, as well as comfort care/hospice - At this time they will consider further, and discussed with additional members of the family and then make a decision as to whether he would want to proceed with active treatment. In that case he'll be started on treatment as an outp atient hopefully, next week. - Case was also discussed in detail with IM Current Visit: Yes Status: Acute Code(s): C34.90 - MALIGNANT NEOPLASM OF UNSP PART OF UNSP BRONCHUS OR LUNG SNOMED Code(s): 802051650 (2) Cancer associated pain Narrative/Plan: this is reasonably well controlled on his current regimen Current Visit: Yes Status: Acute Code(s): G89.3 - NEOPLASM RELATED PAIN (ACUTE) (CHRONIC) SNOMED Code(s): 60880665281114
[2023-10-01] MEDS: PIPERACILLIN-TAZOBACTAM 3.375 GM in SODIUM CHLORIDE 0.9% 100 ML IVPB SCH (02:29)
[2023-10-01 08:04] LABS: ALT 52 U/L (4-49); AST 102 U/L (17-59); African American GFR (CKD) 81 (>60 ml/min/1.73 sqM); Albumin 3.3 g/dL (3.5-5.0); Albumin/Globulin Ratio 1.2; Alkaline Phosphatase 171 U/L (38-126); Anion Gap 7 mmol/L; Blood Urea Nitrogen 13 mg/dL (9-20); Calcium 8.6 mg/dL (8.4-10.2); Carbon Dioxide 26 mmol/L (22-30); Chloride 104 mmol/L (98-107); Globulin 2.8 g/dL; Glucose 118 mg/dL (74-99); Non-African American GFR(CKD) 70 (>60 ml/min/1.73 sqM); Potassium 4.1 mmol/L (3.5-5.1); Sodium 137 mmol/L (137-145); Total Bilirubin 0.9 mg/dL (0.2-1.3); Total Protein 6.1 g/dL (6.3-8.2)
[2023-10-01] MEDS: PANTOPRAZOLE 40 MG/10 ML VIAL IVP SCH ×2 (08:41→19:58)
[2023-10-01] MEDS: DOCUSATE 100 MG CAP PO SCH ×2 (08:41→19:59)
[2023-10-01] MEDS: HEPARIN SODIUM,PORCINE 5,000 UNIT/ML 1 ML VIAL SQ SCH ×2 (08:41→19:58)
--- NOTE | 2023-10-01 08:49 | P.PN ---
Subjective Progress Note Date: 10/01/23 This is a pleasant 83-year-old male patient with a known history of bladder cancer, diabetes mellitus, 70 year chronic and ongoing tobacco dependence. He presented here on 09/24/2023 with complaints of severe right upper quadrant pain. He scan of the abdomen revealed air space consolidation in the right lower lobe. Diffuse hepatic metastasis correlate for primary malignancy. Mild wall thickening of the urinary bladder. We're consulted for the abnormality in the right lower lobe. He is seen today in consultation on the regular medical floor. He is currently sitting up in bed. Awake and alert in no acute distress. He he did undergo a liver biopsy this morning. He denies any shortness of breath, cough or congestion. No fever or chills. He is maintaining good O2 saturations in the 90s on room air. White count 7.4. Hemoglobin 12.7. Platelets 183. Sodium 136. Potassium 4.1 bicarb 23. BUN 10. Creatinine 1.0. Glucose 107. A ST 95. ALT 45. Pro-calcitonin 2.80. He is currently on Zosyn. The patient is seen today 09/27/2023 in follow-up on the regular medical floor. His been up ambulating in his room. He is maintaining good O2 saturations in the 90s on room air. He has normal saline at 50 MLS per hour. His pro- calcitonin was 2.80. Liver biopsy results still pending. Computed tomography scan of the chest revealed a large lobulated conglomerate mass in the right low er lobe suspicious for primary lung malignancy, possible metastasis. Numerous satellite nodules and separate small nodule superior segment of the right lower lobe consistent with metastasis. Conglomerate right hilar adenopathy and right subcarinal adenopathy consistent with metastasis. Blood culture revealed no growth. White count 10.3. Hemoglobin 13.2. Platelets 204. Sodium 138. Potassium 4.4. Bicarb 23. BUN 11. Creatinine 1.2. Glucose 89. He remains on Zosyn. Continued on bronchodilators. Heparin for DVT prophylaxis. The patient is seen today 09/28/2023 in follow-up on the regular medical floor. He is currently sitting up having breakfast. Awake and alert in no acute dist ress. Denies any worsening shortness of breath, cough or congestion. He is maintaining O2 saturations in the 90s on room air. Afebrile. Hemodynamically stable. MRI of the brain revealed no suspicious metastatic disease. Blood glucose 90. Liver biopsy pending. He remains on bronchodilators. Antibiotics in the form of Zosyn. Pain control with Toradol, Dilaudid, [place]. Heparin for DVT prophylaxis. The patient is seen today 09/29/2023 in follow-up on the regular medical floor. He is currently resting comfortably in bed. Awake and alert in no acute distress. Maintaining O2 saturations in the 90s on room air. He has normal saline at 50 MLS per hour. He is continued on Zosyn. Blood culture revealed no growth. Sputum culture revealed no growth. White count 7.2. Hemoglobin 12.9. Platelets 220. Sodium 1037. Potassium 4.2. Bicarb 25. BUN 12. Creatinine 1.1. Glucose 108. AST 99. ALT 48. Alk phos 172. He remains on heparin for DVT prophylaxis. 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 The patient is seen today 09/30/2023 in follow-up on the regular medical floor. He is currently up ambulating in his room. Denies any shortness of breath, cough or congestion. No hemoptysis. He is maintaining good O2 saturations in the 90s on room air. He remains on bronchodilators. Remains on Zosyn. Remains on heparin for DVT prophylaxis. Count 8.7. Hemoglobin 13.3. Platelets 215. Sodium 137. Potassium 4.2. Bicarb 23. BUN 10. Creatinine 0.98. Glucose 99. He has been notified of his diagnosis of metastatic small cell carcinoma. The patient is seen today 10/01/2023 in follow-up on the regular medical floor. He is currently awake and alert in no acute distress. He is maintaining O2 saturations in the 90s on room air. He denies any significant abdominal discomfort this morning. He was seen by oncology yesterday who recommended initiating chemotherapy. The patient states he is undecided. In the interim, he is continued on DuoNeb inhalations, Zosyn, heparin for DVT prophylaxis. Sodium 137. Potassium 4.1. Bicarb 26. BUN 13. Creatinine 1.0. AST 102. ALT 52. Alk phos 171. Glucose 118. Objective - Vital Signs Vital signs: Vital Signs Temp 98.2 F 10/01/23 02:00 Pulse 64 10/01/23 02:00 Resp 20 10/01/23 02:00 BP 122/55 10/01/23 02:00 Pulse Ox 92 L 10/01/23 02:00 FiO2 Intake & Output 09/30/23 10/01/23 10/01/23 18:59 06:59 18:59 Intake Total 540 1200 Balance 540 1200 Intake: Intake, IV Titration 700 Amount Piperacillin-Tazobactam 3 100 .375 gm In Sodium Chloride 0.9% 100 ml @ 25 mls/hr IVPB Q8H JOSE Rx#: [id number] Sodium Chloride 0.9% 1, 600 000 ml @ 50 mls/hr IV . Q20H JOSE Rx#:[id number] Oral 540 500 Other: Voiding Method Toilet Toilet # Voids 2 2 - Exam GENERAL EXAM: Alert, pleasant 83-year-old male, on room air, in no apparent distress. HEAD: Normocephalic. EYES: Normal reaction of pupils, equal size. NOSE: Clear with pink turbinates. THROAT: No erythema or exudates. NECK: No masses, no JVD. CHEST: No chest wall deformity. LUNGS: Equal air entry with no crackles, wheeze, rhonchi or dullness. CVS: S1 and S2 normal with no audible murmur, regular rhythm. ABDOMEN: Normal bowel sounds, no guarding or rigidity. SPINE: No scoliosis or deformity SKIN: No rashes CENTRAL NERVOUS SYSTEM: No focal deficits, tone is normal in all 4 extremities. EXTREMITIES: There is no peripheral edema. No clubbing, no cyanosis. Periphera l pulses are intact. - Labs CBC & Chem 7: 09/30/23 06:50 10/01/23 06:40 Labs: Abnormal Lab Results - Last 24 Hours (Table) 10/01/23 Range/Units 06:40 Glucose 118 H (74-99) mg/dL AST 102 H (17-59) U/L ALT 52 H (4-49) U/L Alkaline Phosphatase 171 H (38-126) U/L Total Protein 6.1 L (6.3-8.2) g/dL Albumin 3.3 L (3.5-5.0) g/dL Microbiology - Last 24 Hours (Table) 09/25/23 11:40 Blood Culture - Final Blood 09/27/23 14:55 Gram Stain - Final Sputum Sputum Culture - Final Assessment and Plan Assessment: Right upper quadrant pain secondary to liver metastasis, status post liver biopsy 09/26/2023 and positive for metastatic small cell carcinoma, 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 Pro- calcitonin 2.80. Completed Zosyn History of bladder cancer Chronic and ongoing tobacco dependence of 70 years Plan: The patient was seen and evaluated Labs and medications reviewed Currently stable and on room air Completed Zosyn Patient aware of his diagnosis Considering chemotherapy versus no treatment This patient was seen independently by the pulmonary nurse practitioner addressing pulmonary issues I have personally seen and examined the patient, performed the documentation and the assessment and plan as written. Number of minutes spent on the visit: 24.
[2023-10-01 10:14] LABS: Basophils # (A) 0.09 X 10*3/uL (0.00-0.10); Basophils % (A) 1.1 %; Eosinophils # (A) 0.24 X 10*3/uL (0.04-0.35); Eosinophils % (A) 2.9 %; HCT 37.7 % (39.6-50.0); HGB 12.5 g/dL (13.0-17.0); Lymphocytes # (A) 4.05 X 10*3/uL (0.90-5.00); Lymphocytes % (A) 48.7 %; MCH 32.2 pg (27.0-32.0); MCHC 33.2 g/dL (32.0-37.0); MCV 97.2 FL (80.0-97.0); Mean Platelet Volume 9.9 FL (9.5-12.2); Monocytes # (A) 0.58 X 10*3/uL (0.20-1.00); NRBC Per 100 WBC 0 X 10*3/uL (0.00-0.01); Neutrophils # (A) 3.31 X 10*3/uL (1.80-7.70); Neutrophils % (A) 39.8 %; Platelet Count 237 X 10*3/uL (140-440); RBC 3.88 X 10*6/uL (4.40-5.60); RDW 13.1 % (11.5-14.5); WBC 8.31 X 10*3/uL (4.50-10.00)
--- NOTE | 2023-10-01 22:59 | PN ---
PROGRESS NOTE DATE OF SERVICE: 10/01/2023 SUBJECTIVE: This is an 83-year-old gentleman, who was admitted with right upper quadrant abdominal pain, also had liver mets from small-cell carcinoma. Oncology following the patient. No chest pain, no palpitations, no fever. OBJECTIVE: VITAL SIGNS: Pulse 65, blood pressure 150/76, respirations 18. CHEST: Few scattered rhonchi. ABDOMEN: Soft, nontender. NERVOUS SYSTEM: Nonfocal. LABS: Hemoglobin 12.5. LFTs are noted rather stable. ASSESSMENT: 1. Right upper quadrant abdominal pain with possible metastatic liver disease and metastasis from the small cell carcinoma, possibly lung primary. 2. Status post liver biopsy. 3. Bladder cancer history. 4. Possible right-sided lung cancer with satellite nodules. 5. History of right lower lobe pneumonia, possibly failure of outpatient treatment with possible postobstructive and gram-negative. 6. Aortic lymphadenopathy. 7. Diabetes mellitus, type 2. 8. GERD. 9. History of cholecystectomy. 10.History of nicotine dependence. RECOMMENDATIONS: Recommended to continue current management, continue symptomatic treatment, otherwise at this time recommended closely follow with Hematology/Oncology. Continue the pain management. The prognosis is guarded. Further recommendations to follow. Possible discharge in the next 24 hours. MMODL / IJN: [id number] /
[2023-10-02 08:00] VITALS: BMI 28.7
--- NOTE | 2023-10-02 08:02 | P.PN ---
Subjective Progress Note Date: 10/01/23 Principal diagnosis: Reason for follow-up is abnormal chest x-ray and Question of pneumonia Patient is a 83-year-old male with a past medical history significant for bladder cancer history of diabetes mellitus and reflux patient presenting to the hospital for evaluation of right upper quadrant abdominal pain, patient did have a CT of abdominal pelvis with evidence of possible hepatic metastasis and there was a question of right lower lobe pneumonia. On today's evaluation that is 10/01/2023, the patient remains to be afebrile, the patient is breathing comfortably on room air however is complaining of shortness of breath, the patient denies chest pain did have occasional dry cough , patient denies any nausea/vomiting abdominal pain or diarrhea Patient white count is 8.31, creatinine is 1.0, procalcitonin is 2.80, cultures currently pending Objective - Vital Signs Vital signs: Vital Signs Temp 98 F 10/01/23 13:44 Pulse 55 L 10/01/23 13:44 Resp 17 10/01/23 13:44 BP 132/71 10/01/23 13:44 Pulse Ox 95 10/01/23 13:44 FiO2 Intake & Output 09/30/23 10/01/23 10/01/23 18:59 06:59 18:59 Intake Total 540 1200 Balance 540 1200 Intake: Intake, IV Titration 700 Amount Piperacillin-Tazobactam 3 100 .375 gm In Sodium Chloride 0.9% 100 ml @ 25 mls/hr IVPB Q8H JOSE Rx#: [id number] Sodium Chloride 0.9% 1, 600 000 ml @ 50 mls/hr IV . Q20H JOSE Rx#:[id number] Oral 540 500 Other: Voiding Method Toilet Toilet # Voids 2 2 - Exam GENERAL DESCRIPTION: An elderly male lying in bed in no distress RESPIRATORY SYSTEM: Unlabored breathing , decreased breath sounds at bases HEART: S1 S2 regular rate and rhythm , ABDOMEN: Soft , no tenderness EXTREMITIES: No edema feet - Labs CBC & Chem 7: 10/01/23 06:40 10/01/23 06:40 Labs: Abnormal Lab Results - Last 24 Hours (Table) 10/01/23 10/01/23 Range/Units 06:40 06:40 RBC 3.88 L (4.40-5.60) X 10*6/uL Hgb 12.5 L (13.0-17.0) g/dL Hct 37.7 L (39.6-50.0) % MCV 97.2 H (80.0-97.0) FL MCH 32.2 H (27.0-32.0) pg Glucose 118 H (74-99) mg/dL AST 102 H (17-59) U/L ALT 52 H (4-49) U/L Alkaline Phosphatase 171 H (38-126) U/L Total Protein 6.1 L (6.3-8.2) g/dL Albumin 3.3 L (3.5-5.0) g/dL Microbiology - Last 24 Hours (Table) 09/25/23 11:40 Blood Culture - Final Blood 09/27/23 14:55 Gram Stain - Final Sputum Sputum Culture - Final Assessment and Plan (1) Right lower lobe pneumonia Current Visit: Yes Status: Acute Priority: High Code(s): J18.9 - PNEUMONIA, UNSPECIFIED ORGANISM SNOMED Code(s): 281329376 Plan: 1patient presented to hospital with right upper quadrant abdominal pain in this patient on did have history of bladder cancer and evidence of diffuse hepatic metastasis could be responsible for his symptomatology 2-patient also have evidence of consolidation on the CT with a question of possible atelectasis, patient did have elevated procalcitonin, component of Pneumonia not excluded 3--patient is afebrile white count has been normal, blood and sputum culture currently pending 4-patient has a completed course of Zosyn which has been discontinued this morning, patient advised to continue incentive spirometry and monitor closely Dictation was produced using [employer] dictation software. please excuse any grammatical, word or spelling errors. Time with Patient: Less than 30
[2023-10-02] MEDS: PANTOPRAZOLE 40 MG/10 ML VIAL IVP SCH (09:21)
[2023-10-02] MEDS: HEPARIN SODIUM,PORCINE 5,000 UNIT/ML 1 ML VIAL SQ SCH (09:21)
[2023-10-02] MEDS: DOCUSATE 100 MG CAP PO SCH (09:21)
[2023-10-02 12:25] VITALS: BP 134/72; PULSE 59; RESP 17; TEMP 98.2
--- NOTE | 2023-10-02 13:46 | P.PN ---
Subjective Progress Note Date: 10/02/23 This is a pleasant 83-year-old male patient with a known history of bladder cancer, diabetes mellitus, 70 year chronic and ongoing tobacco dependence. He presented here on 09/24/2023 with complaints of severe right upper quadrant pain. He scan of the abdomen revealed air space consolidation in the right lower lobe. Diffuse hepatic metastasis correlate for primary malignancy. On today's evaluation of 09/30/2023, I'm seeing the patient for a follow-up. The patient is doing well. No specific complaints. Tolerating diet. He has been diagnosed having metastatic small cell lung cancer and the patient will need outpatient systemic chemotherapy. No cough. No hemoptysis. No pleurisy. He is a chronic smoker. Family is at the bedside. No other significant events overnight. Blood work shows a WBC count of 8.3, hemoglobin 12.7 and a platelet count of 237, the rest of the electrolytes are normal. LFTs are elevated related to his hepatic metastases. Objective - Vital Signs Vital signs: Vital Signs Temp 98.1 F 10/02/23 07:33 Pulse 64 10/02/23 07:33 Resp 18 10/02/23 07:33 BP 149/66 10/02/23 07:33 Pulse Ox 94 L 10/02/23 07:33 FiO2 Intake & Output 10/01/23 10/02/23 10/02/23 18:59 06:59 18:59 Intake Total 580 800 Balance 580 800 Weight 85.729 kg Intake: Oral 580 800 Other: Voiding Method Toilet # Voids 2 3 - Exam GENERAL EXAM: Alert, pleasant 83-year-old male, on room air, in no apparent distress. HEAD: Normocephalic. EYES: Normal reaction of pupils, equal size. NOSE: Clear with pink turbinates. THROAT: No erythema or exudates. NECK: No masses, no JVD. CHEST: No chest wall deformity. LUNGS: Equal air entry with no crackles, wheeze, rhonchi or dullness. CVS: S1 and S2 normal with no audible murmur, regular rhythm. ABDOMEN: Normal bowel sounds, no guarding or rigidity. SPINE: No scoliosis or deformity SKIN: No rashes CENTRAL NERVOUS SYSTEM: No focal deficits, tone is normal in all 4 extremities. EXTREMITIES: There is no peripheral edema. No clubbing, no cyanosis. Peripheral pulses are intact. - Labs CBC & Chem 7: 10/01/23 06:40 10/01/23 06:40 Assessment and Plan Plan: Metastatic small cell lung cancer, stage IV. Biopsy of the liver mass confirm the diagnosis. The patient also has lung mass and significant mediastinal lymphadenopathy involving the right hilum and subcarinal area. Right upper quadrant pain secondary to liver metastasis, status post liver biopsy 09/26/2023 and positive for metastatic small cell carcinoma Right lower lobe consolidation suspect pneumonia versus malignancy. Pro-calc itonin 2.80. Completed Zosyn History of bladder cancer Chronic and ongoing tobacco dependence of 70 years Plan: Currently stable and on room air Completed Zosyn Patient aware of his diagnosis The patient will need systemic chemotherapy and the patient is working with medical oncology. MRI of the brain showed no evidence of any brain metastases. Seems to have adequate performance of functional status. Tolerating diet. Discharge home within the next 24-48 hours to be followed up with oncology.
--- NOTE | 2023-10-02 14:21 | P.PN ---
Subjective Progress Note Date: 10/01/23 The patient denies any new complaints since our last visit. Pain is reasonably well controlled. No history of any nausea or vomiting. He denies any change in respiratory status. Objective - Vital Signs Vital signs: Vital Signs Temp 98.2 F 10/02/23 11:40 Pulse 59 L 10/02/23 11:40 Resp 17 10/02/23 11:40 BP 134/72 10/02/23 11:40 Pulse Ox 97 10/02/23 11:40 FiO2 Intake & Output 10/01/23 10/02/23 10/02/23 18:59 06:59 18:59 Intake Total 580 800 Balance 580 800 Weight 85.729 kg Intake: Oral 580 800 Other: Voiding Method Toilet # Voids 2 3 1 - Constitutional General appearance: Present: no acute distress - EENT Eyes: Present: EOMI ENT: Present: hearing grossly normal, normal oropharynx - Neck Thyroid: bilateral: normal size - Respiratory Respiratory: bilateral: CTA - Cardiovascular Rhythm: regular Heart sounds: normal: S1, S2 - Gastrointestinal General gastrointestinal: Present: soft Localized gastrointestinal: guarding: RUQ - Integumentary Integumentary: Present: normal - Neurologic Neurologic: Present: CNII-XII intact - Musculoskeletal Musculoskeletal: Present: generalized weakness, strength equal bilaterally - Psychiatric Psychiatric: Present: A&O x's 3, appropriate affect - Labs CBC & Chem 7: 10/01/23 06:40 10/01/23 06:40 Assessment and Plan (1) Small cell lung cancer Narrative/Plan: Plan again met with the patient and his family at the request, for discussion of his diagnosis, prognosis and management options yesterday. These were again reiterated in detail to them. We again discussed the logistics and possible side effects of active treatment with standard regimen of CUSTOMER SERVICE ANALYST-16/carboplatin/ICI. They were advised that the patient would be considered an acceptable medical risk for the treatment. He again discussed prognosis with and without treatment, as well as the option of comfort care alone with hospice if the patient did not want no active treatment. - The discussed risks versus benefit aspects of treatment in the palliative setting including specifically with this patient. This included risks of major side effects such as severe including life-threatening infection and cytopenias, as well as the possibility of major liver decompensation, versus clinical rates of response, clinical benefit in terms of improvement in symptoms, as well as average prolongation of life expectancy. - After detailed discussion the patient, and family confirmed that they would like to proceed with active treatment, with full understanding of the risks and benefits. This will be scheduled as an outpatient. - Case discussed in detail with IM. Current Visit: Yes Status: Acute Code(s): C34.90 - MALIGNANT NEOPLASM OF UNSP PART OF UNSP BRONCHUS OR LUNG SNOMED Code(s): 386449346 (2) Cancer associated pain Narrative/Plan: This is well controlled on current regimen. Outpatient prescriptions will be arranged for at the time of discharge tomorrow. Current Visit: Yes Status: Acute Code(s): G89.3 - NEOPLASM RELATED PAIN (ACUTE) (CHRONIC) SNOMED Code(s): 12483679442665
--- NOTE | 2023-10-02 14:27 | P.PN ---
Subjective Progress Note Date: 10/02/23 Principal diagnosis: Small cell lung cancer, metastatic In follow-up today patient is sitting in a chair, no new complaints, his pain is fairly well controlled on the oxycodone he is currently receiving. Was having trouble with constipation even prior to admission. He did have a bowel movement 2 days ago. Objective - Vital Signs Vital signs: Vital Signs Temp 98.2 F 10/02/23 11:40 Pulse 59 L 10/02/23 11:40 Resp 17 10/02/23 11:40 BP 134/72 10/02/23 11:40 Pulse Ox 97 10/02/23 11:40 FiO2 Intake & Output 10/01/23 10/02/23 10/02/23 18:59 06:59 18:59 Intake Total 580 800 Balance 580 800 Weight 85.729 kg Intake: Oral 580 800 Other: Voiding Method Toilet # Voids 2 3 1 - Constitutional General appearance: Present: average body habitus, cooperative, no acute distress - EENT Eyes: Present: anicteric sclerae, EOMI ENT: Present: hearing grossly normal - Respiratory Details: Respirations even and unlabored at rest - Peripheral edema leg Peripheral Edema: bilateral: None - Neurologic Neurologic: Present: CNII-XII intact (Grossly) - Musculoskeletal Musculoskeletal: Present: generalized weakness, strength equal bilaterally - Psychiatric Psychiatric: Present: A&O x's 3, appropriate affect, intact judgment & insight - Labs CBC & Chem 7: 10/01/23 06:40 10/01/23 06:40 Assessment and Plan (1) Small cell lung cancer Current Visit: Yes Status: Acute Priority: High Code(s): C34.90 - MALIGNANT NEOPLASM OF UNSP PART OF UNSP BRONCHUS OR LUNG SNOMED Code(s): 529755784 (2) Cancer associated pain Current Visit: Yes Status: Acute Priority: High Code(s): G89.3 - NEOPLASM RELATED PAIN (ACUTE) (CHRONIC) SNOMED Code(s): 39628277080021 Plan: Small cell lung cancer -New diagnosis, positive liver biopsy -Patient and family have decided on pursuing treatment. Orders will be sent to the office. Nursing will contact patient's daughter Brittanie (family requested be contact Brittanie) with date and time of appointments. Malignancy related pain -Patient is doing fairly well on oxycodone 10 mg, 1 every 4 hours. A ten-day prescription has been sent to patient's [facility] pharmacy per their request. -Reviewed the importance of prevention of narcotic-induced constipation. Recommend 1-2 Senokot 1-2 times a day, MiraLAX daily and milk of magnesia when necessary if no bowel movement for several days. They verbalized understanding. Patient is okay from a Medical Oncology standpoint to be discharged once he has been cleared with the Attending and other consulting Physicians.
== END 2023-10-02 14:22 | disposition home or self-care (01) | DRG 435 ==
LOC: EC 21:09 → 5NMEDONC 09-25 00:40 → 6NMEDSUR 09-28 02:46
PROVIDERS: ADMIT Hospitalist; ATTEND Hospitalist
PROC: 0FB23ZX Excision of Left Lobe Liver, Percutaneous Approach, Diagnostic (ICD-10-PCS; principal; 2023-09-25)
DX: C78.7 Secondary malignant neoplasm of liver and intrahepatic bile duct (principal); J18.9 Pneumonia, unspecified organism; C34.90 Malignant neoplasm of unspecified part of unspecified bronchus or lung; J98.11 Atelectasis; E11.9 Type 2 diabetes mellitus without complications; F17.210 Nicotine dependence, cigarettes, uncomplicated; G89.3 Neoplasm related pain (acute) (chronic); Z53.09 Procedure and treatment not carried out because of other contraindication; I10 Essential (primary) hypertension; K21.9 Gastro-esophageal reflux disease without esophagitis; K57.30 Diverticulosis of large intestine without perforation or abscess without bleeding; K59.00 Constipation, unspecified; Z80.0 Family history of malignant neoplasm of digestive organs; Z85.51 Personal history of malignant neoplasm of bladder; Z11.52 Encounter for screening for COVID-19; Z71.3 Dietary counseling and surveillance
CPT/HCPCS: 36415; 47000; 70553; 71046; 71260; 74177; 76705; 76942; 80048; 80053; 81003; 82150; 83605; 83690; 83735; 84100; 84145; 84484; 85025; 85610; 86140; 86738; 87040; 87070; 87205; 87449; 87636; 88307; 88341; 88342; 96374; 96375; 99285

== ENCOUNTER 2023-11-06 13:42 | Inpatient (IN) | payer MEDICARE, BC ==
--- NOTE | 2023-11-06 14:36 | ED ---
General Adult HPI - General Chief complaint: Extremity Injury, Upper Stated complaint: Left arm blood clots-sent from ultrasound Time Seen by Provider: 11/06/23 14:35 Source: patient, family, RN notes reviewed Mode of arrival: ambulatory Limitations: no limitations - History of Present Illness Initial comments: Patient is an 83-year-old male presented to the ER with a chief complaint of DVTs. Patient is currently undergoing cancer treatment last chemo was 11-01-2023. Patient started immunotherapy on 10-30-2023. Patient states for the past 3 days he has noticed his left upper extremity has been swollen and a bluish hue. Family reports that he had an IV on that site for the immunotherapy. Patient underwent outpatient ultrasound today and was found to have multiple DVTs. Patient is not on a blood thinner currently. Patient sent here for admission per Dr. Salazar Tripathi. Patient denies any shortness of breath, chest pain, palpitations, abdominal pain, fevers, chills, nausea, vomiting, peripheral edema. - Related Data Home Medications Medication Instructions Recorded Confirmed Ibuprofen 800 mg PO TID PRN 09/25/23 11/06/23 diazePAM [Valium] 5 mg PO QID PRN 09/25/23 11/06/23 Acetaminophen [Tylenol] 650 mg PO Q4H PRN 11/06/23 11/06/23 Atezolizumab [Tecentriq] 1,200 mg IV Q21D 11/06/23 11/06/23 Docusate [Colace] 100 mg PO BID PRN 11/06/23 11/06/23 Fluticasone Nasal [place] [Flonase 2 spray EA NOSTRIL DAILY PRN 11/06/23 11/06/23 Nasal [place]] Omeprazole [PriLOSEC] 20 mg PO DAILY PRN 11/06/23 11/06/23 Ondansetron [Zofran] 4 mg PO Q8HR PRN 11/06/23 11/06/23 oxyCODONE HCL [oxyCODONE HCL (IR)] 10 mg PO Q4H PRN 11/06/23 11/06/23 polyethylene glycoL 3350 [Miralax] 17 gm PO DAILY PRN 11/06/23 11/06/23 Allergies Allergy/AdvReac Type Severity Reaction Status Date / Time No Known Allergies Allergy Verified 11/06/23 16:29 Review of Systems ROS Statement: Those systems with pertinent positive or pertinent negative responses have been documented in the HPI. ROS Other: All systems not noted in ROS Statement are negative. Past Medical History Past Medical History: Cancer, Diabetes Mellitus, Deep Vein Thrombosis (DVT), Liver Disease Additional Past Medical History / Comment(s): Hx of Small Cell Cancer, Liver Cancer, Bladder Cancer History of Any Multi-Drug Resistant Organisms: None Reported Past Surgical History: Cholecystectomy Additional Past Surgical History / Comment(s): Patient said he had polyps removed from bladder and a bladder "wash". Past Anesthesia/Blood Transfusion Reactions: No Reported Reaction Past Psychological History: No Psychological Hx Reported Smoking Status: Former smoker Past Alcohol Use History: None Reported Past Drug Use History: None Reported - Past Family History Father Additional Family Medical History / Comment(s): Colon cancer. General Exam Limitations: no limitations General appearance: alert, in no apparent distress Head exam: Present: atraumatic, normocephalic, normal inspection Eye exam: Present: normal appearance, PERRL, EOMI. Absent: scleral icterus, conjunctival injection, periorbital swelling Respiratory exam: Present: normal lung sounds bilaterally. Absent: respiratory distress, wheezes, rales, rhonchi, stridor Cardiovascular Exam: Present: regular rate, normal rhythm, normal heart sounds. Absent: systolic murmur, diastolic murmur, rubs, gallop, clicks Extremities exam: Present: other (Left upper extremity swollen with a red hue skin tone. 2+ left radial pulse. Sensation intact. Patient has full active range of motion.) Back exam: Present: normal inspection Neurological exam: Present: alert, oriented X3, CN II-XII intact Psychiatric exam: Present: normal affect, normal mood Course Vital Signs 11/06/23 13:43 Temperature 97.7 F Pulse Rate 71 Respiratory 18 Rate Blood Pressure 151/62 O2 Sat by Pulse 98 Oximetry Medical Decision Making - Medical Decision Making Was pt. sent in by a medical professional or institution (, PA, [employer] [employer], urgent care, hospital, or alf...) When possible be specific @ -Yes, patient sent here by Dr. Tripathi due to positive outpatient ultrasound significant for DVT in left upper extremity. Did you speak to anyone other than the patient for history (EMS, parent, family, police, friend...)? What history was obtained from this source @ -Family providing parts of PMHx and HPI. Did you review nursing and triage notes (agree or disagree)? Why? @ -I reviewed and agree with nursing and triage notes Were old charts reviewed (outside hosp., previous admission, EMS record, old EKG, old radiological studies, urgent care reports/EKG's, alf records)? Report findings @ -I reviewed outpatient ultrasound report of left upper extremity from . Left upper extremity positive for DVT involving the left subclavian and brachial veins. Continuous SVT to the basilic veins. Differential Diagnosis (chest pain, altered mental status, abdominal pain women, abdominal pain men, vaginal bleeding, weakness, fever, dyspnea, syncope, headache, dizziness, GI bleed, back pain, seizure, CVA, palpatations, mental health, musculoskeletal)? @ -Differential Musculoskeletal: Muscular strain, contusion, ligament sprain, fracture, arthritis, septic arthritis, bursitis, cellulitis, muscle spasm, nerve compression, DVT, arterial occlusion, herpes zoster, electrolyte abnormality, tumor.... This is not meant to be in all inclusive list EKG interpreted by me (3pts min.). @ -None X-rays interpreted by me (1pt min.). @ -None done CT interpreted by me (1pt min.). @ -None done U/S interpreted by me (1pt. min.). @ -None done What testing was considered but not performed or refused? (CT, X-rays, U/S, labs)? Why? @ -None What meds were considered but not given or refused? Why? @ -None Did you discuss the management of the patient with other professionals (professionals i.e. , PA, [employer], lab, RT, psych nurse, clinical social work aide, hockey scout, teacher, project control officer, case therapist)? Give summary @ -Yes, case discussed with Dr. Reich, [facility] physician, accepts medical admission. Was smoking cessation discussed for >3mins.? @ -No Was critical care preformed (if so, how long)? @ -No Were there social determinants of health that impacted care today? How? ( Homelessness, low income, unemployed, alcoholism, drug addiction, transportation, low edu. Level, literacy, decrease access to med. care, [place] [facility], rehab)? @ -No Was there de-escalation of care discussed even if they declined (Discuss DNR or withdrawal of care, Hospice)? DNR status @ -No What co-morbidities impacted this encounter? (DM, HTN, Smoking, COPD, CAD, Cancer, CVA, ARF, Chemo, Hep., AIDS, mental health diagnosis, sleep apnea, morbid obesity)? @ -Cancer, diabetes mellitus Was patient admitted / discharged? Hospital course, mention meds given and route, prescriptions, significant lab abnormalities, going to OR and other pertinent info. @ -Admitted. Patient is an 83-year-old male presented to ER with a chief complaint of left upper extremity swelling. Patient was seen in outpatient ultrasound and found to have a DVT of his left upper extremity. Patient sent here for admission by PCP, . History and physical exam were completed. Vitals stable. Patient in no signs of acute distress and nontoxic-appearing. Patient's left upper extremity neurovascularly intact. It was mildly edematous with a red hue. Labs obtained in the ER unremarkable. I reviewed outpatient ultrasound report of left upper extremity from 11-06-2023. Left upper extremity positive for DVT involving the left subclavian and brachial veins. Continuous SVT to the basilic veins. Heparin started. I discussed this case with Dr. Reich, [facility] physician, whom accepts medical admission. Patient in agreement for medical admission. Patient be admitted in stable condition for further care and treatment. Undiagnosed new problem with uncertain prognosis? @ -No Drug Therapy requiring intensive monitoring for toxicity (Heparin, Nitro, Insulin, Cardizem)? @ -Yes, heparin Were any procedures done? @ -No Diagnosis/symptom? @ -Left upper extremity DVT Acute, or Chronic, or Acute on Chronic? @ -Acute Uncomplicated (without systemic symptoms) or Complicated (systemic symptoms)? @ -Uncomplicated Side effects of treatment? @ -Yes Exacerbation, Progression, or Severe Exacerbation? @ -No Poses a threat to life or bodily function? How? (Chest pain, USA, NH, pneumonia, PE, COPD, DKA, ARF, appy, cholecystitis, CVA, Diverticulitis, Homicidal, Suicidal, threat to staff... and all critical care pts) @ -Yes DVTs can cause pulmonary embolisms which can be life-threatening. - Lab Data Result diagrams: 11/06/23 14:44 11/06/23 14:44 Lab Results 11/06/23 11/06/23 11/06/23 Range/Units 14:44 14:44 14:44 WBC 6.6 (3.8-10.6) k/uL RBC 3.87 L (4.30-5.90) m/uL Hgb 12.7 L (13.0-17.5) gm/dL Hct 37.1 L (39.0-53.0) % MCV 95.8 (80.0-100.0) fL MCH 32.7 (25.0-35.0) pg MCHC 34.1 (31.0-37.0) g/dL RDW 12.6 (11.5-15.5) % Plt Count 219 (150-450) k/uL MPV 7.6 Neutrophils % 39 % Lymphocytes % 58 % Monocytes % 0 % Eosinophils % 0 % Basophils % 1 % Neutrophils # 2.5 (1.3-7.7) k/uL Lymphocytes # 3.8 (1.0-4.8) k/uL Monocytes # 0.0 (0-1.0) k/uL Eosinophils # 0.0 (0-0.7) k/uL Basophils # 0.1 (0-0.2) k/uL PT 10.3 (10.0-12.5) sec INR 0.9 (<1.2) APTT 23.4 (22.0-30.0) sec Sodium 137 (137-145) mmol/L Potassium 4.4 (3.5-5.1) mmol/L Chloride 105 (98-107) mmol/L Carbon Dioxide 28 (22-30) mmol/L Anion Gap 4 mmol/L BUN 19 (9-20) mg/dL Creatinine 0.70 (0.66-1.25) mg/dL Est GFR (CKD-EPI)AfAm >90 (>60 ml/min/1.73 sqM) Est GFR (CKD-EPI)NonAf 89 (>60 ml/min/1.73 sqM) Glucose 107 H (74-99) mg/dL Calcium 9.1 (8.4-10.2) mg/dL Total Bilirubin 0.6 (0.2-1.3) mg/dL AST 33 (17-59) U/L ALT 27 (4-49) U/L Alkaline Phosphatase 134 H (38-126) U/L Total Protein 6.9 (6.3-8.2) g/dL Albumin 4.0 (3.5-5.0) g/dL - Radiology Data Radiology results: report reviewed Disposition Clinical Impression: Deep vein thrombosis (DVT) of left upper extremity Disposition: ADMITTED IP TO THIS [facility] Condition: Fair Time of Disposition: 16:04
[2023-11-06 15:06] LABS: Basophils # (A) 0.1 k/uL (0-0.2); Basophils % (A) 1 %; Eosinophils % (A) 0 %; HCT 37.1 % (39.0-53.0); HGB 12.7 gm/dL (13.0-17.5); Lymphocytes # (A) 3.8 k/uL (1.0-4.8); Lymphocytes % (A) 58 %; MCH 32.7 pg (25.0-35.0); MCHC 34.1 g/dL (31.0-37.0); MCV 95.8 fL (80.0-100.0); Mean Platelet Volume 7.6; Monocytes % (A) 0 %; Neutrophils # (A) 2.5 k/uL (1.3-7.7); Neutrophils % (A) 39 %; Platelet Count 219 k/uL (150-450); RBC 3.87 m/uL (4.30-5.90); RDW 12.6 % (11.5-15.5); WBC 6.6 k/uL (3.8-10.6)
[2023-11-06 15:07] LABS: ALT 27 U/L (4-49); AST 33 U/L (17-59); African American GFR (CKD) >90 (>60 ml/min/1.73 sqM); Alkaline Phosphatase 134 U/L (38-126); Anion Gap 4 mmol/L; Blood Urea Nitrogen 19 mg/dL (9-20); Calcium 9.1 mg/dL (8.4-10.2); Carbon Dioxide 28 mmol/L (22-30); Chloride 105 mmol/L (98-107); Glucose 107 mg/dL (74-99); Non-African American GFR(CKD) 89 (>60 ml/min/1.73 sqM); Potassium 4.4 mmol/L (3.5-5.1); Sodium 137 mmol/L (137-145); Total Bilirubin 0.6 mg/dL (0.2-1.3); Total Protein 6.9 g/dL (6.3-8.2)
[2023-11-06 15:11] LABS: INR 0.9 (<1.2)
[2023-11-06 15:12] LABS: Partial Thromboplastin Time 23.4 sec (22.0-30.0); Prothrombin Time 10.3 sec (10.0-12.5)
[2023-11-06] MEDS ORDERED: HEPARIN SODIUM 1,000 UN/ML (10ML VL) IV PRN (15:22)
[2023-11-06] MEDS: HEPARIN SODIUM 1,000 UN/ML (10ML VL) IV ONE (15:57)
[2023-11-06] MEDS: HEPARIN SOD,PORK IN 0.45% NACL 25,000 UNIT in 0.45% NACL 1 250ML.BAG IV SCH (15:59)
[2023-11-06] MEDS ORDERED: NALOXONE 0.4 MG/ML 1 ML VIAL IV PRN (16:00)
[2023-11-06] MEDS ORDERED: ACETAMINOPHEN TAB 325 MG TAB PO PRN (16:03)
[2023-11-06 22:49] VITALS: RESP 16
[2023-11-06 23:47] LABS: Glucose,Whole Blood 87 mg/dL (70-110)
[2023-11-07] MEDS: IOPAMIDOL CONTRAST (ORAL USE) VIAL PO PRN (10:57)
[2023-11-07 11:40] VITALS: BMI 27.8
[2023-11-07 12:14] VITALS: BP 132/74; PULSE 58; TEMP 97.6
--- NOTE | 2023-11-07 12:17 | P.HPIM ---
History of Present Illness Patient is an 83-year-old male came in after he was found to have superficial and deep venous thrombosis in the left arm and an ultrasound that was done as an outpatient patient was admitted and was started on IV heparin. Patient has history of lung cancer was on chemotherapy presently undergoing immunotherapy. Patient was eval by oncology here and CT scan of the chest abdomen pelvis was ordered. Plan for oncologist to discuss continuation of care versus hospice depending on the CT scans. Patient denying chest pain or shortness of breath at this time. REVIEW OF SYSTEMS: CONSTITUTIONAL: No fever, no malaise, no fatigue. HEENT: No recent visual problems or hearing problems. Denied any sore throat. CARDIOVASCULAR: No chest pain, orthopnea, PND, no palpitations, no syncope. PULMONARY: No shortness of breath, no cough, no hemoptysis. GASTROINTESTINAL: No diarrhea, no nausea, no vomiting, no abdominal pain. NEUROLOGICAL: No headaches, no weakness, no numbness. HEMATOLOGICAL: Denies any bleeding or petechiae. GENITOURINARY: Denies any burning micturition, frequency, or urgency. MUSCULOSKELETAL/RHEUMATOLOGICAL: Denies any joint pain, swelling, or any muscle pain. ENDOCRINE: Denies any polyuria or polydipsia. The rest of the 14-point review of systems is negative. PHYSICAL EXAMINATION: GENERAL: The patient is alert and oriented x3, not in any acute distress. Well developed, well nourished. HEENT: Pupils are round and equally reacting to light. EOMI. No scleral icterus. No conjunctival pallor. Normocephalic, atraumatic. No pharyngeal erythema. No thyromegaly. CARDIOVASCULAR: S1 and S2 present. No murmurs, rubs, or gallops. PULMONARY: Chest is clear to auscultation, no wheezing or crackles. ABDOMEN: Soft, nontender, nondistended, normoactive bowel sounds. No palpable organomegaly. MUSCULOSKELETAL: No joint swelling or deformity. EXTREMITIES: No cyanosis, clubbing, or pedal edema. Swelling of the left arm NEUROLOGICAL: Gross neurological examination did not reveal any focal deficits. SKIN: No rashes. Assessment and plan Left upper extremity DVT patient will be given Eliquis discontinue IV heparin. -Lung cancer: CT scan of the abdomen pelvis and chest were ordered to rule out pulmonary embolism as well as metastasis spread. Patient will be discharged after the CT scan results -Type 2 diabetes mellitus Past Medical History Past Medical History: Cancer, Diabetes Mellitus, Deep Vein Thrombosis (DVT), Liver Disease Additional Past Medical History / Comment(s): Hx of Small Cell Cancer, Liver Cancer, Bladder Cancer, diet controlled diabetes. History of Any Multi-Drug Resistant Organisms: None Reported Past Surgical History: Cholecystectomy Additional Past Surgical History / Comment(s): Patient said he had polyps removed from bladder and a bladder "wash". Past Anesthesia/Blood Transfusion Reactions: No Reported Reaction Past Psychological History: No Psychological Hx Reported Smoking Status: Former smoker Past Alcohol Use History: None Reported Past Drug Use History: None Reported Additional Drug Use History / Comment(s): Quit smoking September 2023. - Past Family History Father Additional Family Medical History / Comment(s): Colon cancer. Medications and Allergies Home Medications Medication Instructions Recorded Confirmed Type Ibuprofen 800 mg PO TID PRN 09/25/23 11/06/23 History diazePAM [Valium] 5 mg PO QID PRN 09/25/23 11/06/23 History Acetaminophen [Tylenol] 650 mg PO Q4H PRN 11/06/23 11/06/23 History Atezolizumab [Tecentriq] 1,200 mg IV Q21D 11/06/23 11/06/23 History Docusate [Colace] 100 mg PO BID PRN 11/06/23 11/06/23 History Fluticasone Nasal [place] [Flonase 2 spray EA NOSTRIL DAILY PRN 11/06/23 11/06/23 History Nasal [place]] Omeprazole [PriLOSEC] 20 mg PO DAILY PRN 11/06/23 11/06/23 History Ondansetron [Zofran] 4 mg PO Q8HR PRN 11/06/23 11/06/23 History oxyCODONE HCL [oxyCODONE HCL (IR)] 10 mg PO Q4H PRN 11/06/23 11/06/23 History polyethylene glycoL 3350 [Miralax] 17 gm PO DAILY PRN 11/06/23 11/06/23 History Apixaban [Eliquis Starter Pack 5 - 10 mg PO DIRECTED 30 Days 11/07/23 Rx (for VTE)] #1 each Allergies Allergy/AdvReac Type Severity Reaction Status Date / Time No Known Allergies Allergy Verified 11/06/23 16:29 Physical Exam Vitals: Vital Signs Temp Pulse Pulse Resp BP BP Pulse Ox 11/07/23 12:00 97.6 F 58 L 16 132/74 97 11/07/23 11:00 67 16 11/07/23 08:00 97.4 F L 67 16 131/64 97 11/07/23 02:00 98.3 F 56 L 16 121/57 97 11/06/23 22:20 98 F 63 16 136/62 100 11/06/23 21:57 60 17 117/68 100 11/06/23 18:28 97.3 F L 70 18 127/65 97 11/06/23 13:43 97.7 F 71 18 151/62 98 Intake and Output 11/06/23 11/07/23 11/07/23 22:59 06:59 14:59 Intake Total 120.139 121.917 Balance 120.139 121.917 Intake: Intake, IV Titration 120.139 121.917 Amount Heparin Sod,Pork in 0.45% 120.139 121.917 NaCl 25,000 unit In 0.45 % NaCl 1 250ml.bag @ 18 UNITS/KG/HR 14.533 mls/hr IV .[id number] [facility] Rx#: [id number] Other: Voiding Method Toilet Toilet Urinal Urinal # Voids 3 Weight 80.739 kg 80.739 kg Results CBC & Chem 7: 11/06/23 14:44 11/06/23 14:44 Labs: Abnormal Lab Results - Last 24 Hours (Table) 11/06/23 11/06/23 11/06/23 Range/Units 14:44 14:44 21:40 RBC 3.87 L (4.30-5.90) m/uL Hgb 12.7 L (13.0-17.5) gm/dL Hct 37.1 L (39.0-53.0) % APTT 123.6 H* (22.0-30.0) sec Glucose 107 H (74-99) mg/dL Alkaline Phosphatase 134 H (38-126) U/L 11/07/23 Range/Units 05:34 RBC (4.30-5.90) m/uL Hgb (13.0-17.5) gm/dL Hct (39.0-53.0) % APTT 75.5 H (22.0-30.0) sec Glucose (74-99) mg/dL Alkaline Phosphatase (38-126) U/L Thrombosis Risk Factor Assmnt - Choose All That Apply Any of the Below Risk Factors Present?: Yes Each Factor Represents 1 point: Serious lung disease incl. pneumonia (< 1month) Other Risk Factors: Yes Each Risk Factor Represents 2 Points: Malignancy Each Risk Factor Represents 3 Points: Age 75 years or older, History of DVT/PE Thrombosis Risk Factor Assessment Total Risk Factor Score: 9 Thrombosis Risk Factor Assessment Level: High Risk
--- NOTE | 2023-11-07 12:19 | P.DS ---
Providers Date of admission: 11/06/23 16:03 Attending physician: Jeannie Richardson Consults: 11/06/23 16:00 Consult Physician Stat Consulting Provider: Kal Cazares Consult Reason/Comments: DVT Do you want consulting provider notified?: Yes Primary care physician: Claudio Tripathi Hospital Course: Patient is an 83-year-old male came in after he was found to have superficial and deep venous thrombosis in the left arm and an ultrasound that was done as an outpatient patient was admitted and was started on IV heparin. Patient has history of lung cancer was on chemotherapy presently undergoing immunotherapy. Patient was eval by oncology here and CT scan of the chest abdomen pelvis was ordered. Plan for oncologist to discuss continuation of care versus hospice depending on the CT scans. Patient denying chest pain or shortness of breath at this time. PHYSICAL EXAMINATION: GENERAL: The patient is alert and oriented x3, not in any acute distress. Well developed, well nourished. HEENT: Pupils are round and equally reacting to light. EOMI. No scleral icterus. No conjunctival pallor. Normocephalic, atraumatic. No pharyngeal erythema. No thyromegaly. CARDIOVASCULAR: S1 and S2 present. No murmurs, rubs, or gallops. PULMONARY: Chest is clear to auscultation, no wheezing or crackles. ABDOMEN: Soft, nontender, nondistended, normoactive bowel sounds. No palpable organomegaly. MUSCULOSKELETAL: No joint swelling or deformity. EXTREMITIES: No cyanosis, clubbing, or pedal edema. Swelling of the left arm NEUROLOGICAL: Gross neurological examination did not reveal any focal deficits. SKIN: No rashes. Assessment and plan Left upper extremity DVT patient will be given Eliquis discontinue IV heparin. -Lung cancer: CT scan of the abdomen pelvis and chest were ordered to rule out pulmonary embolism as well as metastasis spread. Patient will be discharged after the CT scan results -Type 2 diabetes mellitus Patient Condition at Discharge: Fair Plan - Discharge Summary Discharge Rx Participant: No New Discharge Prescriptions: New Apixaban [Eliquis Starter Pack (for VTE)] 5 - 10 mg PO DIRECTED 30 Days #1 each Continue Ibuprofen 800 mg PO TID PRN PRN Reason: Pain diazePAM [Valium] 5 mg PO QID PRN PRN Reason: Anxiety Fluticasone Nasal [place] [Flonase Nasal [place]] 2 spray EA NOSTRIL DAILY PRN PRN Reason: Congestion Omeprazole [PriLOSEC] 20 mg PO DAILY PRN PRN Reason: GERD polyethylene glycoL 3350 [Miralax] 17 gm PO DAILY PRN PRN Reason: Constipation Acetaminophen [Tylenol] 650 mg PO Q4H PRN PRN Reason: Pain oxyCODONE HCL [oxyCODONE HCL (IR)] 10 mg PO Q4H PRN PRN Reason: Pain Atezolizumab [Tecentriq] 1,200 mg IV Q21D Ondansetron [Zofran] 4 mg PO Q8HR PRN PRN Reason: Nausea Docusate [Colace] 100 mg PO BID PRN PRN Reason: Constipation Discharge Medication List Ibuprofen 800 mg PO TID PRN 09/25/23 [History] diazePAM [Valium] 5 mg PO QID PRN 09/25/23 [History] Acetaminophen [Tylenol] 650 mg PO Q4H PRN 11/06/23 [History] Atezolizumab [Tecentriq] 1,200 mg IV Q21D 11/06/23 [History] Docusate [Colace] 100 mg PO BID PRN 11/06/23 [History] Fluticasone Nasal [place] [Flonase Nasal [place]] 2 spray EA NOSTRIL DAILY PRN 11/06/23 [History] Omeprazole [PriLOSEC] 20 mg PO DAILY PRN 11/06/23 [History] Ondansetron [Zofran] 4 mg PO Q8HR PRN 11/06/23 [History] oxyCODONE HCL [oxyCODONE HCL (IR)] 10 mg PO Q4H PRN 11/06/23 [History] polyethylene glycoL 3350 [Miralax] 17 gm PO DAILY PRN 11/06/23 [History] Apixaban [Eliquis Starter Pack (for VTE)] 5 - 10 mg PO DIRECTED 30 Days #1 each 11/07/23 [Rx] Follow up Appointment(s)/Referral(s): Claudio Tripathi MD [Primary Care Provider] - 11/10/23 11:10 am Kal Cazares [STAFF PHYSICIAN] - 1-2 Days ( will go over your CT results from 11/07/23 and discuss plan of treament.) Patient Instructions/Handouts: Deep Vein Thrombosis (DC) Discharge Disposition: HOME SELF-CARE
[2023-11-07] MEDS: APIXABAN 5 MG TAB PO SCH (13:10)
--- NOTE | 2023-11-07 15:09 | CT ---
EXAMINATION TYPE: CT ChestAbdPelvis w con CT DLP: 1223.40 mGycm, Automated exposure control for dose reduction was used. DATE OF EXAM: 11/07/2023 12:57 PM COMPARISON: CT chest 09/25/2023, CT abdomen pelvis 09/24/2023 CLINICAL INDICATION:Male, 83 years old with history of Treatment follow up, SCLC; PHH, treatment foll ow up, SCLC TECHNIQUE: Multiple axial images of the chest, abdomen, and pelvis were obtained. Two-dimensional cor onal and sagittal reconstructions were obtained. Contrast used:100 mL of Isovue 300 with IV Contrast, Oral contrast used: with Oral Contrast FINDINGS: CHEST: LUNGS/ PLEURA: Conglomerate right lower lobe mass appears decreased in size, difficult to measure pre cisely but is about 3.5 x 1.5 cm on image 33 series 5, versus 5.7 x 3.1 cm when measured in a similar fashion on the prior study. The immediately adjacent small nodular densities have also significantly improved with minor residual soft tissue stranding. Previous 1.1 cm nodule in the superior segment o f the right lower lobe appears to have resolved. Interval improved aeration of subsegmental atelectas is in the lung bases. Now seen are a couple of nodular appearing subpleural densities in the left suze g base images 45 and 49, measuring up to 6 mm in size which may be new or simply better seen due to i mproved aeration. Otherwise, no new or enlarging nodules are seen bilaterally. No pleural effusion or pneumothorax. AIRWAY: Decreased small globular filling defects along the right tracheal wall compared to prior, may represent mucous secretions. Decreased narrowing with now near-normal appearing patency of the bronc hus intermedius, proximal right middle and lower lobe bronchi. LOWER NECK: No significant findings. MEDIASTINUM: A 1.2 x 0.8 cm node in the upper mediastinum posterior to the trachea on the right, the same to slightly smaller compared to previous. Right hilar adenopathy has significantly diminished, w ith mild residual soft tissue thickening here which is not reliably measurable. Subcarinal adenopathy on the right has also significantly diminished, with residual nonenlarged node seen in this area. Mi ldly prominent but nonenlarged nodes in the inferior mediastinum near the esophagus appear essentiall y unchanged. No new or enlarging nodes. HEART: Heart size upper normal. Moderate coronary artery calcification and/or stents. No appreciable pericardial effusion. VASCULATURE: Mild to moderate atherosclerotic calcifications of the aorta and branches. Ascending ao rta is 3.8 CM, descending is 2.9 CM. Pulmonary trunk measures 2.9 CM. Pulmonary trunk is normal in si ze. No large central/saddle embolus is seen. Evaluation more peripherally is limited on this nonangio graphic study, however there is the suggestion of a small filling defect in the right lower lobe pierre ry with possible small extensions to the lateral and posterior medial segments, not present on the pr ior. Otherwise there is improved patency of the pulmonary arterial branches in the right hilum compar ed to prior. SOFT TISSUES/LYMPH NODES: Stable soft tissues. No axillary adenopathy. MUSCULOSKELETAL: No acute osseous abnormalities. Mild disc degeneration changes are present throughou t the thoracic spine. No definite metastatic bony lesions. OTHER: No other significant finding. ABDOMEN PELVIS: ABDOMEN LIVER: Overall, the innumerable hepatic metastatic lesions have decreased in size and conspicuity. No ne appear definitely new or larger than before. GALLBLADDER AND BILE DUCTS: The gallbladder is surgically absent. PANCREAS: Unremarkable. SPLEEN: Unremarkable. ADRENAL GLANDS: Unremarkable.. KIDNEYS AND URETERS: Kidneys concentrate and excrete contrast symmetrically. No hydronephrosis or mas ses visualized. PELVIS BLADDER: Similar in appearance, mildly distended with mildly thickened appearance of the wall; this c ould be related to the enlarged prostate with cystitis possible proper setting. REPRODUCTIVE: Enlarged prostate again seen measuring 5.3 cm transverse with coarse parenchymal calcif ications. ABDOMEN & PELVIS STOMACH AND BOWEL: Contrast traverses the stomach and small bowel, into the proximal aspects of the c olon without evidence of obstruction or discrete mass. The appendix appears within normal limits. Sca ttered diverticula are noted throughout the colon without evidence of inflammation. PERITONEUM/RETROPERITONEUM: No evidence of pneumoperitoneum or free fluid. VASCULATURE: Moderate mixed atherosclerotic disease of the abdominal aorta, mostly in the infrarenal portion, without evidence of aneurysm. There are some irregular soft plaque present but its no dissec tion flap is seen. Additional disease throughout the iliac arteries with areas of mild/moderate steno sis. MUSCULOSKELETAL: No acute osseous abnormalities. Moderate disc degeneration changes are present throu ghout the spine and SI joints. No evidence of lytic/blastic lesion or fracture. Similar appearance of small sclerotic densities in the hips, likely bone islands. LYMPH NODES: No evidence of lymphadenopathy. SOFT TISSUES/ABDOMINAL WALL: Unremarkable OTHER: No other significant finding. IMPRESSION: 1. Suspected small pulmonary embolus in the right lower lobe artery, not present previously. Dedicat ed CTA chest for PE may be considered in follow-up. 2. Favorable response to therapy, with significant decrease in size of the right lower lobe lung mas s, and essentially resolution of the other small right lower lobe nodules. 3. Improved aeration of the lung bases. Subcentimeter nodular densities in the left lung base could be new, or simply better seen due to the improved aeration. These could represent parenchymal changes or atelectasis, with metastatic nodules not fully excluded. These will be reassessed on follow-up im aging. 4. Significantly diminished right hilar adenopathy, with mild residual soft tissue thickening. The r ight subcarinal adenopathy has essentially resolved. 5. Diffuse hepatic metastases redemonstrated, which appear decreased in size and conspicuity compare d to previous. 6. No evidence of new or worsening metastatic disease in the abdomen or pelvis.
[2023-11-07 17:19] LABS: Follicle Stimulating Hormone 23.9 mIU/mL; Luteinizing Hormone 16.3 mIU/mL
--- NOTE | 2023-11-07 21:11 | P.CONS ---
History of Present Illness - Reason for Consult Consult date: 11/07/23 DVT, SCLC on treatment Requesting physician: Cecy Govea - Chief Complaint Upper extremity DVT - History of Present Illness Mr Ji is a pleasant WM, initially seen in consult at [facility] on 09/25/23. He had presented with upper abd pain, most prominent in the RUQ and upper mid abdomen, starting about 6 wks ago, progressive since then. Associated symptoms included alternating constipation and diarrhea over the past 6 mths, nausea without vomiting over the past [address] AP revealed diffuse hepatic metastases, CT chest showed RLL congolmerate mass 5-6 cm with rt infrahilar and subcarinal adenopathy 3-4 cm. 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 MRI brain on 09/27/23 neg for metastatic disease. Pt opted to try active treatment. He started carboplatin 8 topside 10/09/2023. Atezolizumab was added with cycle 2 he completed that cycle 11/01. Daughter reports that the day after cycle 2 patient was unable to walk, was very weak but, this resolved by the following day though he is still mildly weak at this time. He did not have any other significant side effects to report posttreatment. He presented to the emergency department with left upper extremity swelling. Doppler positive for deep vein thrombosis-Doppler report reads DVT involving left subclavian and brachial veins, contiguous SVT into the basilic veins. Swelling in the arm started about 3 days prior, this progressed, swelling, bluish hue and pain and lump in axilla. Patient had IV access for treatment in [facility], bruising seen. Patient denied any headaches or dizziness, the family is reporting that he has had some falls, but they state he was unsteady even before treatment. Patient denied nausea, vomiting, leg swelling, chest pain, palpitations, unusual shortne ss of breath, chest pain, no acute changes in bowel or bladder habits. He is currently on a heparin drip, no bleeding reported. Family reports that patient's son had an unprovoked blood clot when he was very young. 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 Diet controlled diabetes. History of Any Multi-Drug Resistant Organisms: None Reported Past Surgical History: Cholecystectomy Additional Past Surgical History / Comment(s): Patient said he had polyps remove d from bladder and a bladder "wash". Past Anesthesia/Blood Transfusion Reactions: No Reported Reaction Past Psychological History: No Psychological Hx Reported Smoking Status: Former smoker Past Alcohol Use History: None Reported Past Drug Use History: None Reported Additional Drug Use History / Comment(s): Quit smoking September 2023. - Past Family History Father Additional Family Medical History / Comment(s): Colon cancer. Son(s) Family Medical History: Deep Vein Thrombosis (DVT) Medications and Allergies Home Medications Medication Instructions Recorded Confirmed Type Ibuprofen 800 mg PO TID PRN 09/25/23 11/06/23 History diazePAM [Valium] 5 mg PO QID PRN 09/25/23 11/06/23 History Acetaminophen [Tylenol] 650 mg PO Q4H PRN 11/06/23 11/06/23 History Atezolizumab [Tecentriq] 1,200 mg IV Q21D 11/06/23 11/06/23 History Docusate [Colace] 100 mg PO BID PRN 11/06/23 11/06/23 History Fluticasone Nasal [place] [Flonase 2 spray EA NOSTRIL DAILY PRN 11/06/23 11/06/23 History Nasal [place]] Omeprazole [PriLOSEC] 20 mg PO DAILY PRN 11/06/23 11/06/23 History Ondansetron [Zofran] 4 mg PO Q8HR PRN 11/06/23 11/06/23 History oxyCODONE HCL [oxyCODONE HCL (IR)] 10 mg PO Q4H PRN 11/06/23 11/06/23 History polyethylene glycoL 3350 [Miralax] 17 gm PO DAILY PRN 11/06/23 11/06/23 History Apixaban [Eliquis Starter Pack 5 - 10 mg PO DIRECTED 30 Days 11/07/23 Rx (for VTE)] #1 each Allergies Allergy/AdvReac Type Severity Reaction Status Date / Time No Known Allergies Allergy Verified 11/06/23 16:29 Physical Exam Vitals: Vital Signs Temp Pulse Pulse Resp BP BP Pulse Ox 11/07/23 02:00 98.3 F 56 L 16 121/57 97 11/06/23 22:20 98 F 63 16 136/62 100 11/06/23 21:57 60 17 117/68 100 11/06/23 18:28 97.3 F L 70 18 127/65 97 11/06/23 13:43 97.7 F 71 18 151/62 98 Intake and Output 11/06/23 11/07/23 11/07/23 22:59 06:59 14:59 Intake Total 120.139 Balance 120.139 Intake: Intake, IV Titration 120.139 Amount Heparin Sod,Pork in 0.45% 120.139 NaCl 25,000 unit In 0.45 % NaCl 1 250ml.bag @ 18 UNITS/KG/HR 14.533 mls/hr IV .[id number] [facility] Rx#: [id number] Other: Voiding Method Toilet Toilet Urinal Urinal # Voids 3 Weight 80.739 kg - Constitutional General appearance: average body habitus, cooperative, no acute distress - EENT Eyes: anicteric sclerae, EOMI ENT: hard of hearing, normal oropharynx - Neck Neck: no lymphadenopathy - Respiratory Respiratory: bilateral: CTA - Cardiovascular LUE swelling, tenderness to palpation in the axilla, no LAD Rhythm: regular Heart sounds: normal: S1, S2 Abnormal Heart Sounds: systolic murmur, no diastolic murmur, no rub, no S3 Gallop, no S4 Gallop, no click, no other leg Peripheral Edema: left: Other (Left upper extremity 2+ swelling, nonpitting, tender in the axilla to palpation, mild venous distention seen in the upper part of the arm), bilateral: None - Gastrointestinal General gastrointestinal: no absent bowel sounds, no decreased bowel sounds, no distended, no hepatomegaly, no hyperactive bowel sounds, normal bowel sounds, no organomegaly, no rigid, no scaphoid, soft, no splenomegaly, no tenderness, no umbilical hernia, no ventral hernia - Integumentary bruising in the left AC area from IV - Neurologic Neurologic: CNII-XII intact - Musculoskeletal Musculoskeletal: generalized weakness - Psychiatric Psychiatric: A&O x's 3, appropriate affect, intact judgment & insight Results CBC & Chem 7: 11/06/23 14:44 11/06/23 14:44 Labs: Abnormal Lab Results - Last 24 Hours (Table) 11/06/23 11/06/23 11/06/23 Range/Units 14:44 14:44 21:40 RBC 3.87 L (4.30-5.90) m/uL Hgb 12.7 L (13.0-17.5) gm/dL Hct 37.1 L (39.0-53.0) % APTT 123.6 H* (22.0-30.0) sec Glucose 107 H (74-99) mg/dL Alkaline Phosphatase 134 H (38-126) U/L 11/07/23 Range/Units 05:34 RBC (4.30-5.90) m/uL Hgb (13.0-17.5) gm/dL Hct (39.0-53.0) % APTT 75.5 H (22.0-30.0) sec Glucose (74-99) mg/dL Alkaline Phosphatase (38-126) U/L Venous US: report reviewed Assessment and Plan (1) Deep vein thrombosis (DVT) of left upper extremity Status: Acute Priority: High Code(s): I82.622 - ACUTE EMBOLISM AND THROMBOSIS OF DEEP VEINS OF L UP EXTREM SNOMED Code(s): 485604152 (2) Small cell lung cancer Status: Acute Priority: Medium Code(s): C34.90 - MALIGNANT NEOPLASM OF UNSP PART OF UNSP BRONCHUS OR LUNG SNOMED Code(s): 174357863 Plan: -Provoked LUE DVT-malignancy, IV site, mention of falls but no prolonged laying on the arm -Agree with heparin drip. Swelling is stable, not progressive. 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 Pt ok for DC after CT CAP done and anticoagulation co- pay verification obtained. Pt f/u appt is in DC plan Doctor attests: I performed a history and physical examination of this patient, developed impression and plan of care. Discussed with dictator. I agree with dictators note, documented as a scribe. Time with Patient: Greater than 30
== END 2023-11-07 14:31 | disposition home or self-care (01) | DRG 300 ==
LOC: EC 13:42 → 5NMEDONC 16:03
PROVIDERS: ADMIT Hospitalist; ATTEND Hospitalist
DX: I82.B12 Acute embolism and thrombosis of left subclavian vein (principal); C34.90 Malignant neoplasm of unspecified part of unspecified bronchus or lung; C78.7 Secondary malignant neoplasm of liver and intrahepatic bile duct; E11.9 Type 2 diabetes mellitus without complications; Z66 Do not resuscitate; Z85.51 Personal history of malignant neoplasm of bladder; Z87.891 Personal history of nicotine dependence; Z79.01 Long term (current) use of anticoagulants; Z79.899 Other long term (current) drug therapy
CPT/HCPCS: 36415; 71260; 74177; 80053; 82533; 83001; 83002; 84443; 85025; 85610; 85730; 96365; 96366; 99285

== ENCOUNTER → 2023-11-06 | Outpatient (CLI) | payer BC ==
--- NOTE | 2023-11-06 14:00 | US ---
EXAMINATION TYPE: US venous doppler duplex UE LT DATE OF EXAM: 11/06/2023 COMPARISON: NONE CLINICAL INDICATION: Male, 83 years old with history of LUE; R22.32 MASS AND LUMP, LEFT UPPER LIMB; C hemo patient, small cell lung CA, swelling and pain to left arm x 3 days SIDE PERFORMED: Left Left Arm: Internal echoes that are not compressible within left subclavian vein, brachial veins and b asilic veins. Spoke with VERA Brandt TELECOM NETWORK MANAGER at office @1:24, patient to go to ER IMPRESSION: Positive for left upper extremity DVT involving the left subclavian and brachial veins. Contiguous SV T and to the basilic veins.
== END | disposition home or self-care (01) ==
LOC: RADUSWWP 12:54
PROVIDERS: ATTEND Family Medicine
DX: C34.90 Malignant neoplasm of unspecified part of unspecified bronchus or lung (principal); I82.622 Acute embolism and thrombosis of deep veins of left upper extremity; I47.19 Other supraventricular tachycardia; R22.32 Localized swelling, mass and lump, left upper limb; M79.602 Pain in left arm

== ENCOUNTER → 2024-01-02 | Outpatient (CLI) | payer BC ==
[2024-01-02 10:14] LABS: African American GFR (CKD) >90 (>60 ml/min/1.73 sqM); Blood Urea Nitrogen 8 mg/dL (9-20); Non-African American GFR(CKD) 79 (>60 ml/min/1.73 sqM)
--- NOTE | 2024-01-05 07:54 | CT ---
EXAMINATION TYPE: CT ChestAbdPelvis w con DATE OF EXAM: 01/02/2024 INDICATION: f/u lung ca COMPARISON: 11/07/2023 CT DLP: 1781 mGycm CONTRAST: Performed with Oral Contrast and with IV Contrast, patient injected with 100 mL of Isovue 300. TECHNIQUE: Axial images at 5 mm thick sections. Reconstructed images in the coronal plane. Delayed images through the kidneys. FINDINGS: CT CHEST: Portion of the thyroid visualized is normal. No suspicious lung nodules or focal infiltrates are present. There is some streak opacity was tiny nodularities within the superior segment right lower lobe, exam ple image series 4 image 35 The ascending aorta diameter at the level of the main pulmonary artery is 3.8 cm. The main pulmonary artery diameter at the bifurcation is 2.[address] ABDOMEN: Liver: There are multiple hypodensities scattered throughout the liver. These are better defined than prior examination. No increase in size of lesions are identified. Spleen: Normal Pancreas: Normal Adrenal glands: The adrenal glands are normal. Gallbladder: Surgically absent Kidneys: No masses are evident. No hydronephrosis is present. No cysts are present. Delayed images were obtained through the kidneys, which remain unremarkable. Aorta: Vascular calcification is within the aorta. Inferior vena cava: Normal. CT PELVIS: Loops of bowel within the abdomen and pelvis are normal. There are loops of bowel which are incom pletely distended or lack oral contrast limiting their evaluation. Appendix: Not identified. No dilated tubular structure or inflammatory changes evident. Urinary bladder: Normal. Genitourinary structures: Prostate is prominent. A few calcifications are present. Osseous structures: No suspicious lytic or sclerotic lesions. IMPRESSION: 1. Multiple well-defined hypodense areas scattered throughout the liver may reflect treated metastasi s. No new or increasing size lesions identified. 2. No suspicious changes of additional metastasis. 3. Prostate hypertrophy
== END | disposition home or self-care (01) ==
LOC: RADCTMAIN 09:25
PROVIDERS: ATTEND Internal Medicine Hematology & Oncology
DX: C34.91 Malignant neoplasm of unspecified part of right bronchus or lung (principal); N40.0 Benign prostatic hyperplasia without lower urinary tract symptoms; I82.623 Acute embolism and thrombosis of deep veins of upper extremity, bilateral; G89.3 Neoplasm related pain (acute) (chronic)
CPT/HCPCS: 82565; 84520; 71260; 74177; 36415; Q9967

== ENCOUNTER 2024-03-01 07:12 | Inpatient (IN) | payer BC ==
[2024-03-01 07:29] VITALS: TEMP 99.4
--- NOTE | 2024-03-01 07:54 | ED ---
General Adult HPI - General Chief complaint: Weakness Stated complaint: Weakness Time Seen by Provider: 03/01/24 07:41 Source: patient, family, EMS, RN notes reviewed, old records reviewed Mode of arrival: EMS Limitations: altered mental status - History of Present Illness Initial comments: Patient is an 84-year-old male with past medical history remarkable for stage IV lung cancer presents emergency department complaining of weakness, increased confusion. Has been more progressive over the last month but worse over the last week or so. He has a history of diabetes, DVT currently on blood thinners. More frequent falls lately, and has been unable to move recommended dose. Concerned may have injured his right hip as he was favoring that side. Has had increased confusion as well. Is also on hydrocortisone for low Cortisol levels. Brought in by EMS for this increased weakness and falls. Has been taking care of by family members at home, patient's daughter Brittanie who is at bedside. Patient currently is alert and oriented x 4. No obvious head injuries with the falls. Presents for further evaluation at this time. No obvious fevers, chills, cough, nausea, vomiting, diarrhea. Decreased appetite over the last day. They are concerned for progressive weakness and cancer. - Related Data Home Medications Medication Instructions Recorded Confirmed diazePAM [Valium] 5 mg PO QID PRN 09/25/23 03/01/24 Acetaminophen [Tylenol] 650 mg PO Q4H PRN 11/06/23 03/01/24 Atezolizumab (No Charge) 1,200 mg IV Q21D 11/06/23 03/01/24 [Tecentriq (No Charge)] Docusate [Colace] 100 mg PO BID PRN 11/06/23 03/01/24 oxyCODONE HCL [oxyCODONE HCL (IR)] 10 mg PO Q4H PRN 11/06/23 03/01/24 Hydrocortisone 5 mg PO TID 02/15/24 03/01/24 Apixaban [Eliquis] 5 mg PO BID 03/01/24 03/01/24 Multivitamins, Thera [Multivitamin 1 tab PO DAILY 03/01/24 03/01/24 (formulary)] Allergies Allergy/AdvReac Type Severity Reaction Status Date / Time No Known Allergies Allergy Verified 03/01/24 09:48 Review of Systems ROS Statement: Those systems with pertinent positive or pertinent negative responses have been documented in the HPI. ROS Other: All systems not noted in ROS Statement are negative. 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 Diet controlled diabetes. History of Any Multi-Drug Resistant Organisms: None Reported Past Surgical History: Cholecystectomy Additional Past Surgical History / Comment(s): Patient said he had polyps removed from bladder and a bladder "wash". Past Anesthesia/Blood Transfusion Reactions: No Reported Reaction Past Psychological History: No Psychological Hx Reported Smoking Status: Former smoker - Past Family History Father Additional Family Medical History / Comment(s): Colon cancer. Son(s) Family Medical History: Deep Vein Thrombosis (DVT) General Exam - General Exam Comments Initial Comments: General: Appears in no acute distress. HEAD: Normal with no signs of head trauma. Negative Reid sign. Negative raccoon eyes. EYES: PERRLA, EOMI, conjunctiva normal, no discharge. 2 millimeters and equal bilaterally. ENT: Hearing grossly intact, normal oropharynx. RESPIRATORY: Clear breath sounds bilaterally. No wheezes, rales, or rhonchi. C/V: Regular rate and rhythm. S1 and S2 auscultated, no edema, peripheral pulses 2+ and intact throughout ABD: Abd is soft, nontender, nondistended EXT: Pain in the right hip resulting in reduced range of motion of the right hip. Tender on palpation. Some mild lumbar spine tenderness to palpation as well. No obvious deformities. No obvious injuries. SKIN: No rashes or lesions observed on exposed skin. NEURO: Oriented x 4. Generalized weakness present in all 4 extremities. More pronounced in the right lower extremity secondary to pain in the right hip per patient. Limitations: altered mental status Course Vital Signs 03/01/24 03/01/24 07:23 12:00 Temperature 99.4 F Pulse Rate 72 80 Respiratory 18 18 Rate Blood Pressure 132/62 135/67 O2 Sat by Pulse 96 94 L Oximetry Medical Decision Making - Medical Decision Making Was pt. sent in by a medical professional or institution (, PA, SEXUAL ASSAULT COUNSELLOR, urgent care, hospital, or half-way...) When possible be specific @ -No Did you speak to anyone other than the patient for history (EMS, parent, family, police, friend...)? What history was obtained from this source @ -Patient's daughter Brittanie is the primary historian for the patient. Did you review nursing and triage notes (agree or disagree)? Why? @ -I reviewed and agree with nursing and triage notes Were old charts reviewed (outside hosp., previous admission, EMS record, old EKG, old radiological studies, urgent care reports/EKG's, half-way records)? Report findings @ -Reviewed prior CT imaging from January 02, 2024. This imaging showed liver metastasis from lung cancer. Differential Diagnosis (chest pain, altered mental status, abdominal pain women, abdominal pain men, vaginal bleeding, weakness, fever, dyspnea, syncope, headache, dizziness, GI bleed, back pain, seizure, CVA, palpatations, mental health, musculoskeletal)? @ -Differential Weakness: Hypoglycemia, shock, sepsis, hyponatremia, anemia, infection, OH, ETOH, adverse medicine reaction, overdose, stroke, this is not meant to be an all-inclusive list. EKG interpreted by me (3pts min.). @ -As above X-rays interpreted by me (1pt min.). @ -Patient's x-rays all negative for any obvious traumatic injury. Patient does have the evidence of lung cancer on chest x-ray. CT interpreted by me (1pt min.). @ -CT brain reveals multiple sites of intraparenchymal hemorrhage, which are suspected to be hemorrhagic metastatic masses per radiology. In agreement with this assessment. No subdural. No subarachnoid. U/S interpreted by me (1pt. min.). @ -None done What testing was considered but not performed or refused? (CT, X-rays, U/S, labs)? Why? @ -None What meds were considered but not given or refused? Why? @ -None Did you discuss the management of the patient with other professionals (professionals i.e. Dr., PA, SEXUAL ASSAULT COUNSELLOR, lab, RT, psych nurse, professor of social work, electrical assembly supervisor, teacher, chief investment officer, case preparer and liner)? Give summary @ - Discussed with radiologist Dr. Solano who updated me on the results of the brain CT. I discussed the case with Dr. Garcia of [facility] who accepted the admission. Was smoking cessation discussed for >3mins.? @ -No Was critical care preformed (if so, how long)? @ -Yes, 35 minutes. Were there social determinants of health that impacted care today? How? (Homelessness, low income, unemployed, alcoholism, drug addiction, transpor tation, low edu. Level, literacy, decrease access to med. care, half-way, rehab)? @ -No Was there de-escalation of care discussed even if they declined (Discuss DNR or withdrawal of care, Hospice)? DNR status @ -Discussed DNR with both patient as well as daughter Brittanie. They both expressed that the patient would not like to be resuscitated. They would like the patient made DNR. They are also open to having hospice consulted to initiate discussion, as they are uncertain if it is appropriate at this time to go on hospice but they are interested at some point in going on hospice for the patient due to his prognosis. What co-morbidities impacted this encounter? (DM, HTN, Smoking, COPD, CAD, Cancer, CVA, ARF, Chemo, Hep., AIDS, mental health diagnosis, sleep apnea, morbid obesity)? @ -Lung cancer stage IV Was patient admitted / discharged? Hospital course, mention meds given and route, prescriptions, significant lab abnormalities, going to OR and other pertinent info. @ -Patient presents with weeks of multiple falls, increased weakness as well as some increased confusion at home. He has stage IV lung cancer and is on blood thinners. Last fall was sometime yesterday morning. No significant change in baseline. Primary complaint is some right hip pain and lower back pain. We w ill obtain broad labs for weakness as well as CT brain as well as the imaging of the chest, pelvis, right hip, lower spine. Patient and patient's family in agreement this plan. He will be symptomatically treated with low-dose morphine as well as IV fluids. Vital signs are currently within acceptable limits. Currently is undergoing immunotherapy treatment through Dr. Cazares with last dose just over 2 weeks ago. Studies unremarkable. X-rays unremarkable. CT imaging shows multiple sites of intraparenchymal hemorrhage concerning for hemorrhagic brain mets. Does not appear to be traumatic.Laboratory studies returned remarkable for positive COVID test. Remainder the labs unremarkable. Patient will be administered Kcentra. We will hold anticoagulation.Discussed transfer options with family due to findings of the hemorrhagic metastatic masses on CT. I did offer transfer for neurosurgery evaluation however after discussion we all agree to keep the patient at our facility to initiate hospice care and hopefully have the patient go home. They are in agreement with management until that time. They do not want the patient transferred. They understand that we have limited surgical intervention to be done if the bleeding gets worse, as we do not have neurosurgery available.. They are in agreement with [facility]. Patient was in agreement this plan. Family was in agreement with this plan. Their plan is for hospice at home as soon as possible. They understand the poor prognosis for the patient. I discussed the case with Dr. Garcia of [facility] who accepted the admission. Undiagnosed new problem with uncertain prognosis? @ -No Drug Therapy requiring intensive monitoring for toxicity (Heparin, Nitro, Insulin, Cardizem)? @ -No Were any procedures done? @ -No Diagnosis/symptom? @ -Metastatic lung cancer with what appears to be hemorrhagic metastasis to the brain. Hospice evaluation. DNR. Acute, or Chronic, or Acute on Chronic? @ -Acute Uncomplicated (without systemic symptoms) or Complicated (systemic symptoms)? @ -Complicated Side effects of treatment? @ -None Exacerbation, Progression, or Severe Exacerbation] @ -No Poses a threat to life or bodily function? @ -Yes - Lab Data Result diagrams: 03/01/24 08:06 03/01/24 08:06 Lab Results 03/01/24 03/01/24 03/01/24 Range/Units 08:06 08:06 08:06 WBC 8.3 (3.8-10.6) k/uL RBC 3.90 L (4.30-5.90) m/uL Hgb 13.2 (13.0-17.5) gm/dL Hct 39.4 (39.0-53.0) % MCV 100.9 H (80.0-100.0) fL MCH 33.8 (25.0-35.0) pg MCHC 33.4 (31.0-37.0) g/dL RDW 13.1 (11.5-15.5) % Plt Count 162 (150-450) k/uL MPV 7.7 Neutrophils % 56 % Lymphocytes % 33 % Monocytes % 6 % Eosinophils % 2 % Basophils % 1 % Neutrophils # 4.7 (1.3-7.7) k/uL Lymphocytes # 2.8 (1.0-4.8) k/uL Monocytes # 0.5 (0-1.0) k/uL Eosinophils # 0.1 (0-0.7) k/uL Basophils # 0.1 (0-0.2) k/uL PT 10.8 (10.0-12.5) sec INR 1.0 (<1.2) APTT 25.8 (22.0-30.0) sec Sodium 138 (137-145) mmol/L Potassium 3.8 (3.5-5.1) mmol/L Chloride 105 (98-107) mmol/L Carbon Dioxide 26 (22-30) mmol/L Anion Gap 7 mmol/L BUN 14 (9-20) mg/dL Creatinine 0.80 (0.66-1.25) mg/dL Est GFR (CKD-EPI)AfAm >90 (>60 ml/min/1.73 sqM) Est GFR (CKD-EPI)NonAf 84 (>60 ml/min/1.73 sqM) Glucose 126 H (74-99) mg/dL Plasma Lactic Acid Hector (0.7-2.0) mmol/L Calcium 9.4 (8.4-10.2) mg/dL Magnesium 1.6 (1.6-2.3) mg/dL Total Bilirubin 0.8 (0.2-1.3) mg/dL AST 31 (17-59) U/L ALT 21 (4-49) U/L Alkaline Phosphatase 85 (38-126) U/L Ammonia (<30) umol/L Total Protein 7.1 (6.3-8.2) g/dL Albumin 4.5 (3.5-5.0) g/dL Influenza Type A (PCR) (Not Detectd) Influenza Type B (PCR) (Not Detectd) RSV (PCR) (Not Detectd) SARS-CoV-2 (PCR) (Not Detectd) 03/01/24 03/01/24 Range/Units 08:06 08:06 WBC (3.8-10.6) k/uL RBC (4.30-5.90) m/uL Hgb (13.0-17.5) gm/dL Hct (39.0-53.0) % MCV (80.0-100.0) fL MCH (25.0-35.0) pg MCHC (31.0-37.0) g/dL RDW (11.5-15.5) % Plt Count (150-450) k/uL MPV Neutrophils % % Lymphocytes % % Monocytes % % Eosinophils % % Basophils % % Neutrophils # (1.3-7.7) k/uL Lymphocytes # (1.0-4.8) k/uL Monocytes # (0-1.0) k/uL Eosinophils # (0-0.7) k/uL Basophils # (0-0.2) k/uL PT (10.0-12.5) sec INR (<1.2) APTT (22.0-30.0) sec Sodium (137-145) mmol/L Potassium (3.5-5.1) mmol/L Chloride (98-107) mmol/L Carbon Dioxide (22-30) mmol/L Anion Gap mmol/L BUN (9-20) mg/dL Creatinine (0.66-1.25) mg/dL Est GFR (CKD-EPI)AfAm (>60 ml/min/1.73 sqM) Est GFR (CKD-EPI)NonAf (>60 ml/min/1.73 sqM) Glucose (74-99) mg/dL Plasma Lactic Acid Hector 1.4 (0.7-2.0) mmol/L Calcium (8.4-10.2) mg/dL Magnesium (1.6-2.3) mg/dL Total Bilirubin (0.2-1.3) mg/dL AST (17-59) U/L ALT (4-49) U/L Alkaline Phosphatase (38-126) U/L Ammonia 15 (<30) umol/L Total Protein (6.3-8.2) g/dL Albumin (3.5-5.0) g/dL Influenza Type A (PCR) Not Detected (Not Detectd) Influenza Type B (PCR) Not Detected (Not Detectd) RSV (PCR) Not Detected (Not Detectd) SARS-CoV-2 (PCR) Detected A (Not Detectd) - EKG Data -: EKG Interpreted by Me EKG Comments: 12-lead Electrocardiogram Interpretation Note EKG was reviewed and interpreted by myself. 12-lead ECG performed at 0831 is interpreted by me as revealing normal sinus rhythm at a rate of 63 beats per minute. [place] is normal. MO interval is 155 ms, QRS duration is 112 ms, QTc is 398 ms.. There were no ST or T wave abnormalities to suggest myocardial ischemia or injury. R wave progression across the precordium was satisfactory. By my interpretation this EKG is non-diagnostic for acute ischemia. Critical Care Time Critical Care Time: Yes Total Critical Care Time: 35 Disposition Clinical Impression: Metastatic cancer, Cerebral parenchymal hemorrhage, Encounter for home hospice care Disposition: ADMITTED IP TO THIS [facility] Condition: Serious Time of Disposition: 09:41
--- NOTE | 2024-03-01 08:34 | XR ---
EXAMINATION TYPE: XR chest 2V DATE OF EXAM: 03/01/2024 COMPARISON: 09/24/2023 TECHNIQUE: PA and lateral views submitted. HISTORY: Weakness FINDINGS: No pleural effusion, or focal pneumonia. Heart size normal and no overt failure. Osseous structures demonstrate hypertrophic and degenerative changes of the spine. Underlying COPD. Arthropathy of the s houlders. Area of consolidation in the right midlung stable. IMPRESSION: 1. Right midlung area of nodular consolidation. Differential diagnosis would include postinfectious e tiology and neoplasm.
--- NOTE | 2024-03-01 08:37 | XR ---
EXAM TYPE: LUMBAR SPINE X RAY SERIES COMPARISON: NONE HISTORY: Pain TECHNIQUE: 4 views are submitted. FINDINGS: Alignment is anatomic. The pedicles are intact. The transverse processes are intact. There is mult ilevel hypertrophic and degenerative changes of the spine with facet arthropathy. Grade 1 anterolisth esis L4-L5. Generalized demineralization. Vascular calcifications noted. IMPRESSION: 1. Multilevel hypertrophic and degenerative changes with facet arthropathy.
--- NOTE | 2024-03-01 08:42 | XR ---
EXAMINATION TYPE: XR Hip RT and AP Pelvis DATE OF EXAM: 03/01/2024 CLINICAL HISTORY: pain TECHNIQUE: Single view the pelvis is submitted. 2 views of the right hip are submitted. FINDINGS: No evidence for fracture, dislocation or bony lesion. Joint spaces are well-preserved. S I joints appear symmetric. IMPRESSION: 1. No acute fracture or dislocation seen. ICD 10 NO FRACTURE, INITIAL EVALUATION
[2024-03-01] MEDS: ONDANSETRON 4 MG/2 ML VIAL IVP STA (08:49)
[2024-03-01] MEDS: MORPHINE SULFATE 2 MG/ML SYRINGE IVP STA (08:49)
[2024-03-01] MEDS: SODIUM CHLORIDE 0.9% 1,000 ML IV STA ×2 (08:50→09:49)
[2024-03-01 08:56] LABS: Basophils # (A) 0.1 k/uL (0-0.2); Basophils % (A) 1 %; Eosinophils # (A) 0.1 k/uL (0-0.7); Eosinophils % (A) 2 %; HCT 39.4 % (39.0-53.0); HGB 13.2 gm/dL (13.0-17.5); Lymphocytes # (A) 2.8 k/uL (1.0-4.8); Lymphocytes % (A) 33 %; MCH 33.8 pg (25.0-35.0); MCHC 33.4 g/dL (31.0-37.0); MCV 100.9 fL (80.0-100.0); Mean Platelet Volume 7.7; Monocytes # (A) 0.5 k/uL (0-1.0); Monocytes % (A) 6 %; Neutrophils # (A) 4.7 k/uL (1.3-7.7); Neutrophils % (A) 56 %; Platelet Count 162 k/uL (150-450); RDW 13.1 % (11.5-15.5); WBC 8.3 k/uL (3.8-10.6)
[2024-03-01] MEDS ORDERED: Kcentra PER PHARMACY 1 EACH MISC MISCELLANE PRN (08:59)
--- NOTE | 2024-03-01 09:03 | CT ---
EXAMINATION TYPE: CT brain wo con DATE OF EXAM: 03/01/2024 COMPARISON: None HISTORY: Weakness CT DLP: 1212.8 mGycm Automated exposure control for dose reduction was used. FINDINGS: Exam limited due to artifact. Moderate degenerative change. Periventricular low attenuation is nonspe cific most typical remote microvascular ischemia. There is an area of intermediate density adjacent t o the body of the left lateral ventricle and there is an area of intermediate density in the left fro ntal lobe. There is a area of hyperdensity in the left parietal lobe image 47. May represent hemorrha ge. Additional hyperdense lesion medial left frontal lobe. Punctate areas of hyperdensity bilaterally compatible with punctate hemorrhage. Possibly hemorrhagic metastases. Chronic sinusitis. Orbits are symmetric. Report discussed with Dr. Lopez at 8:57 AM 03/01/2004. IMPRESSION: MULTIPLE SUSPECTED INTRACRANIAL AREAS OF HYPERDENSITY COMPATIBLE WITH INTRACRANIAL HEMORRHAGE. SOME O F WHICH HAVE SURROUNDING EDEMA. MAY REPRESENT INTRACRANIAL METASTASES OR HEMORRHAGIC METASTASES. INTR ACRANIAL HEMORRHAGE
[2024-03-01 09:05] LABS: Partial Thromboplastin Time 25.8 sec (22.0-30.0); Prothrombin Time 10.8 sec (10.0-12.5)
[2024-03-01 09:07] LABS: Lactic Acid, Venous 1.4 mmol/L (0.7-2.0)
[2024-03-01 09:17] LABS: ALT 21 U/L (4-49); AST 31 U/L (17-59); African American GFR (CKD) >90 (>60 ml/min/1.73 sqM); Albumin 4.5 g/dL (3.5-5.0); Alkaline Phosphatase 85 U/L (38-126); Anion Gap 7 mmol/L; Blood Urea Nitrogen 14 mg/dL (9-20); Calcium 9.4 mg/dL (8.4-10.2); Carbon Dioxide 26 mmol/L (22-30); Chloride 105 mmol/L (98-107); Glucose 126 mg/dL (74-99); Magnesium 1.6 mg/dL (1.6-2.3); Non-African American GFR(CKD) 84 (>60 ml/min/1.73 sqM); Potassium 3.8 mmol/L (3.5-5.1); Sodium 138 mmol/L (137-145); Total Bilirubin 0.8 mg/dL (0.2-1.3); Total Protein 7.1 g/dL (6.3-8.2)
[2024-03-01] MEDS ORDERED: ONDANSETRON 4 MG/2 ML VIAL IVP PRN (09:40)
[2024-03-01] MEDS ORDERED: NALOXONE 0.4 MG/ML 1 ML VIAL IV PRN (09:40)
[2024-03-01] MEDS ORDERED: ACETAMINOPHEN TAB 325 MG TAB PO PRN (09:40)
[2024-03-01] MEDS: DEXAMETHASONE SOD PHOSPHATE 10 MG/ML 1 ML VIAL IVP STA (09:46)
[2024-03-01] MEDS: HUMAN PROTHROMBIN COMPLX IV ONE (09:46)
[2024-03-01] MEDS: MORPHINE SULFATE 4 MG/ML SYRINGE IV PRN (11:30)
[2024-03-01 12:56] LABS: Appearance,Urine Clear (Clear); Bilirubin,Urine Negative (Negative); Blood,Urine Negative (Negative); Color,Urine Colorless; Glucose,Urine (UA) Negative (Negative); Ketones,Urine Negative (Negative); Leukocyte Esterase,Urine Negative (Negative); Nitrite,Urine Negative (Negative); PH, Urine 6.5 (5.0-8.0); Protein,Urine Negative (Negative); Specific Gravity,Urine 1.009 (1.001-1.035); Urobilinogen,Urine <2.0 mg/dL (<2.0)
[2024-03-01] MEDS: LORazepam 2 MG/ML INJ IV STA ×2 (13:00→16:48)
[2024-03-01 13:22] LABS: Prothrombin Time 10.7 sec (10.0-12.5)
[2024-03-01 14:03] VITALS: BP 99/89; PULSE 60; RESP 16
[2024-03-01] MEDS ORDERED: DOCUSATE 100 MG CAP PO PRN (14:46)
--- NOTE | 2024-03-01 15:31 | P.CNNES ---
History of Present Illness Consult date: 03/01/24 Requesting physician: Brandon Lopez Reason for Consult: hemorrhagic brain mets History of Present Illness: Patient is a 84-year-old left-handed male who has been diagnosed with metastatic small cell lung cancer with metastasis to the liver, was brought to the hospital today at 7:12 AM by ambulance. He was receiving immunotherapy. Patient has developed worsening mental confusion, progressively worsening gait, frequent falls over the last 3 weeks, particularly in the last 2 weeks. He is to shuffle while walking and falls. His balance has worsened and is falling frequently. He fell 2 times in the last 24 hours. 1 time he was found crawling on the hands and knees. No obvious head injury was noted, no bruises over the head region. Initially he was able to get up, but now he cannot get up by himself. No seizures have been noted. Lately he is not eating at all. At present patient is very restless, combative, which is never like him. EMS flowsheet not available in the chart. Vital signs with blood pressure 132/62, pulse rate 72 temperature 99.4. Blood test shows normal CBC with elevat ed MCV 100.9. PT PTT normal, CMP is normal. UA negative. Coronavirus PCR positive. Chest x-ray showed right midlung area of nodular consolidation. Differential diagnosis would include postinfectious etiology and neoplasm. X- ray of the lumbar spine showed multilevel hypertrophic and degenerative changes with facet arthropathy. Hip and pelvic x-ray showed no fracture or dislocation. EKG showed sinus rhythm. CT of the head showed multiple suspected intracranial areas of hypodensity compatible with intracranial hemorrhage. Some of which have surrounding edema. May represent intracranial metastasis or hemorrhagic metastasis. I personally reviewed CT head, agree with the findings. Patient at present admits to having little headache and admits to having trouble remembering, but denies any falls, which is not correct. Patient has history of diabetes but no hypertension. He has smoked 2 pack/day since age 16, quit 9 months ago. He drinks alcohol socially. Review of Systems As mentioned in HPI. Patient very confused, not cooperating with review of systems. 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 Diet controlled diabetes. History of Any Multi-Drug Resistant Organisms: None Reported Past Surgical History: Cholecystectomy Additional Past Surgical History / Comment(s): Patient said he had polyps removed from bladder and a bladder "wash". Past Anesthesia/Blood Transfusion Reactions: No Reported Reaction Past Psychological History: No Psychological Hx Reported Smoking Status: Former smoker - Past Family History Father Additional Family Medical History / Comment(s): Colon cancer. Son(s) Family Medical History: Deep Vein Thrombosis (DVT) Medications and Allergies Home Medications Medication Instructions Recorded Confirmed Type diazePAM [Valium] 5 mg PO QID PRN 09/25/23 03/01/24 History Acetaminophen [Tylenol] 650 mg PO Q4H PRN 11/06/23 03/01/24 History Atezolizumab (No Charge) 1,200 mg IV Q21D 11/06/23 03/01/24 History [Tecentriq (No Charge)] Docusate [Colace] 100 mg PO BID PRN 11/06/23 03/01/24 History oxyCODONE HCL [oxyCODONE HCL (IR)] 10 mg PO Q4H PRN 11/06/23 03/01/24 History Hydrocortisone 5 mg PO TID 02/15/24 03/01/24 History Multivitamins, Thera [Multivitamin 1 tab PO DAILY 03/01/24 03/01/24 History (formulary)] Allergies Allergy/AdvReac Type Severity Reaction Status Date / Time No Known Allergies Allergy Verified 03/01/24 09:48 Physical Examination - Vital Signs Vital Signs: Vital Signs Temp Pulse Resp BP Pulse Ox 03/01/24 12:00 80 18 135/67 94 L 03/01/24 07:23 99.4 F 72 18 132/62 96 Intake and Output 02/29/24 03/01/24 03/01/24 22:59 06:59 14:59 Other: Weight 178 kg Patient is an elderly male, who is delirious, encephalopathic, very restless, trying to get up. He wants to go home. Patient encephalopathic as above. He was able to tell me his name and his age of 84. He tells me the month is February, but stops and does not answer for the year. Likewise he is able to tell me that he is in [place] but would not tell me the city he is in. He could not tell name of the building he is in. Speech and language functions are normal. Patient can name and repeat very well. No obvious aphasia or dysarthria. Attention, concentration is severely impaired and fund of knowledge is limited. On cranial nerve examination, pupils are equal, round and reacting to light, visual chung patient did not cooperate for testing. Extraocular muscles are intact with no nystagmus. Face is symmetric, tongue protrudes to the midline. Lower cranial nerves cannot be tested because patient did not cooperate. On muscle strength testing, the strength of his photographer's model, biceps and triceps are normal. He did not cooperate for testing of the deltoid. He moves both lower extremities equally. Deep tendon reflexes are overall 1+ to 2 and plantars flat. Sensory to touch patient did not cooperate Cerebellar function patient did not cooperate. Tone and bulk of muscles normal. Gait deferred.. On general examination, there is no carotid bruit or murmur, S1-S2 audible. Chest is clear on consultation. Abdomen is soft nontender. No organomegaly, bowel sounds present. Peripheral pulses are present. No peripheral edema. Results - Laboratory Findings CBC and BMP: 03/01/24 08:06 03/01/24 08:06 Abnormal Lab Findings: Abnormal Labs 03/01/24 03/01/24 03/01/24 08:06 08:06 08:06 RBC 3.90 L MCV 100.9 H Glucose 126 H SARS-CoV-2 (PCR) Detected A Assessment and Plan Assessment: * Metastatic small cell lung cancer, now with multiple cerebral hemorrhagic metastasis. * Altered mental status, likely due to metabolic encephalopathy, delirium, reasons multifactorial. * Generalized weakness of 3 weeks duration, frequent falls, likely due to reasons mentioned above and below. * Coronavirus positive. * History of liver metastasis * Diabetes * Ex tobacco use Plan: * Patient has history of metastatic lung cancer, with metastasis to the liver, but now patient has presented with new onset multiple hemorrhagic cerebral metastasis. Oncology has seen the patient, and patient considered not a candidate for palliative radiation or other chemotherapies. Patient was currently receiving immunotherapy. * Family have decided for patient to be hospice with comfort care. * Consider Keppra 500 mg twice daily empirically for seizure prophylaxis. * Family declining EEG or other brain imaging. * For other medical conditions including coronavirus, we will defer to IM. * Neurology will sign off. Please reconsult neurology if any concerns. Dr. Jin starting neurology service over the weekend. * Thank you for the consult.
[2024-03-01] MEDS ORDERED: DEXAMETHASONE SOD PHOSPHATE 4 MG/ML 1 ML VIAL IVP SCH (21:00)
== END 2024-03-01 18:56 | disposition hospice, home (50) | DRG 54 ==
LOC: EC 07:12 → 1SOBS 09:41 → 3SCARD 16:01
PROVIDERS: ADMIT Internal Medicine; ATTEND Internal Medicine
DX: C79.31 Secondary malignant neoplasm of brain (principal); G93.41 Metabolic encephalopathy; U07.1 COVID-19; C34.90 Malignant neoplasm of unspecified part of unspecified bronchus or lung; C78.7 Secondary malignant neoplasm of liver and intrahepatic bile duct; M10.9 Gout, unspecified; R45.1 Restlessness and agitation; R29.6 Repeated falls; E11.649 Type 2 diabetes mellitus with hypoglycemia without coma; M47.819 Spondylosis without myelopathy or radiculopathy, site unspecified; Z51.5 Encounter for palliative care; Z66 Do not resuscitate; Z79.01 Long term (current) use of anticoagulants; Z85.51 Personal history of malignant neoplasm of bladder; Z91.81 History of falling; Z87.891 Personal history of nicotine dependence
CPT/HCPCS: 36415; 51702; 70450; 71046; 72100; 73502; 80053; 81003; 82140; 83605; 83735; 85025; 85610; 85730; 87636; 93005; 96361; 96374; 96375; 96376; 99291